=== PATIENT | female | born 1930 | race Caucasian/White ===

== ENCOUNTER 2016-10-09 12:55 | Outpatient (RCR) | payer MEDICAID, MEDICARE, OTHER ==
[2016-09-27] MEDS: diphenhydrAMINE 50 MG/ML INJ (BENADRYL) IV SCH (13:43)
[2016-09-27] MEDS: ACETAMINOPHEN 325 MG TABLET/CAPLET (TYLENOL) PO SCH (13:43)
[2016-09-27 14:58] VITALS: BP 146/74
[2016-09-29] MEDS: ACETAMINOPHEN 325 MG TABLET/CAPLET (TYLENOL) PO SCH (13:07)
[2016-09-29] MEDS: diphenhydrAMINE 50 MG/ML INJ (BENADRYL) IV SCH (13:08)
[2016-09-29] MEDS: IRON SUCROSE 250 MG/NS 100 ML IVPB IV SCH ×2 (13:22)
[2016-09-29 14:15] VITALS: BP 124/66
[2016-10-02] MEDS: diphenhydrAMINE 50 MG/ML INJ (BENADRYL) IV SCH (13:02)
[2016-10-02] MEDS: ACETAMINOPHEN 325 MG TABLET/CAPLET (TYLENOL) PO SCH (13:03)
[2016-10-02] MEDS: IRON SUCROSE 250 MG/NS 100 ML IVPB IV SCH ×2 (13:11)
[2016-10-02 13:16] VITALS: BP 144/82
[2016-10-04] MEDS: ACETAMINOPHEN 325 MG TABLET/CAPLET (TYLENOL) PO SCH (13:10)
[2016-10-04] MEDS: diphenhydrAMINE 50 MG/ML INJ (BENADRYL) IV SCH (13:12)
[2016-10-04] MEDS: IRON SUCROSE 250 MG/NS 100 ML IVPB IV SCH ×2 (13:15)
[2016-10-04 14:08] VITALS: BP 137/73
[2016-10-06] MEDS: ACETAMINOPHEN 325 MG TABLET/CAPLET (TYLENOL) PO SCH (13:01)
[2016-10-06] MEDS: diphenhydrAMINE 50 MG/ML INJ (BENADRYL) IV SCH (13:01)
[2016-10-06] MEDS: IRON SUCROSE 250 MG/NS 100 ML IVPB IV SCH ×2 (13:38)
[2016-10-06 14:10] VITALS: BP 139/70
[~2016-10-09] VITALS: Ht 152.4 cm; Wt 38.1 kg
[~2016-10-09 12:55] MED LIST: ACET-93 PO; ACET325T38 PO; ACETAMINOPHEN 325 MG TABLET/CAPLET (TYLENOL) ONE; ALBU2.5V4 IH; AMLO5TAB2 PO; ASCO500C15 PO; ASPI-586 PO; CALC600T12 PO; CAPT50TA3 PO; CLOP75TA28 PO; DIAZ2TAB2 PO; FLUT1DIS27 IH; IRON SUCROSE INJECTION 125 MG in NS (IVPB) 100 ML IV ONE; LORA10TA7 PO; MECL-106 PO; MEGE400O PO; MEGE400O21 PO; MULT-1038 PO; OXYGEN; PENT400T2 PO; PRAV10TA PO; TIOT18CA2 IH; diphenhydrAMINE 50 MG/ML INJ (BENADRYL) ONE
[2016-10-09] MEDS: diphenhydrAMINE 50 MG/ML INJ (BENADRYL) IV SCH (13:10)
[2016-10-09] MEDS: ACETAMINOPHEN 325 MG TABLET/CAPLET (TYLENOL) PO SCH (13:10)
[2016-10-09 13:17] VITALS: BP_SYST 139; BP_SYST 149; BP_DIAS 70; BP_DIAS 95
[2016-10-09] MEDS: IRON SUCROSE 250 MG/NS 100 ML IVPB IV SCH ×2 (13:30)
== END 2016-11-25 | disposition home or self-care (01) ==
LOC: SDC 12:55
PROVIDERS: ATTEND Family Medicine
DX: D50.9 Iron deficiency anemia, unspecified (principal)
CPT/HCPCS: 96365; 96375

== ENCOUNTER 2017-03-23 17:35 | Emergency (ER) | payer MEDICARE, OTHER ==
[~2017-03-23] VITALS: Ht 152.4 cm; Wt 46.3 kg
[~2017-03-23 17:35] MED LIST changes: -ACETAMINOPHEN 325 MG TABLET/CAPLET (TYLENOL) ONE; -IRON SUCROSE INJECTION 125 MG in NS (IVPB) 100 ML IV ONE; -diphenhydrAMINE 50 MG/ML INJ (BENADRYL) ONE
[2017-03-23 19:30] LABS: BASOPHILS # (AUTO) 0.1 10^3/uL (0.0-0.1); BASOPHILS % (AUTO) 1 % (0-10); EOSINOPHILS # (AUTO) 0.5 10^3/uL (0.0-0.3); EOSINOPHILS % (AUTO) 5 % (0-10); HEMATOCRIT 36 % (35-52); HEMOGLOBIN 12.4 G/DL (11.5-16.0); LYMPHOCYTES # (AUTO) 1.3 X 10^3 (1.0-4.0); LYMPHOCYTES % (AUTO) 13 % (12-44); MEAN CORPUSCULAR HEMOGLOBIN 33 PG (25-34); MEAN CORPUSCULAR HGB CONC 35 G/DL (32-36); MEAN CORPUSCULAR VOLUME 95 FL (80-99); MEAN PLATELET VOLUME 9.5 FL (7.4-10.4); MONOCYTES # (AUTO) 1.3 X 10^3 (0.0-1.0); MONOCYTES % (AUTO) 13 % (0-12); NEUTROPHILS # (AUTO) 6.9 X 10^3 (1.8-7.8); NEUTROPHILS % (AUTO) 69 % (42-75); PLATELET COUNT 363 10^3/uL (130-400); RED BLOOD COUNT 3.77 10^6/uL (4.35-5.85); RED CELL DISTRIBUTION WIDTH 12.6 % (10.0-14.5)
--- NOTE | 2017-03-23 19:43 | Diagnostic Imaging Report ---
INDICATION: Shortness of breath. EXAMINATION: Portable chest at 7:28 p.m. FINDINGS: There is some atelectasis in the right upper lobe. Heart size and pulmonary vascularity are normal. Lungs are clear. There are no effusions or pneumothoraces. IMPRESSION: Focal area of atelectasis in the right upper lobe. No acute abnormality is seen. Dictated by: Dictated on workstation # [id number]
--- NOTE | 2017-03-23 19:45 | ED Cough/URI ---
General Chief Complaint: Respiratory Problems Stated Complaint: PRODUCTIVE COUGH/PAINFUL BREATHING/SOB Nursing Triage Note: PT CO OF SOA AND LUNG PAIN 5/10, HAS PROD COUGH WITH THICK YELLOW GREEN SPUTUM. 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 She resides at [facility]. She reports that she has had a cough and sputum production for at least a month. It got worse today and she called her daughters who brought her here late this afternoon. She reports that she has been coughing up a goodly amount of green ugly sputum. There is some chest pain particularly with coughing or deep breath. She has nebulizer treatment available to her on a when necessary basis if she can [place] nursing care. Timing/Duration: week, getting worse Severity/Quality: productive cough, sputum Modifying Factors: Improves With Albuterol Nebulizer Associated Symptoms: chest pain/soreness Allergies and Home Medications Allergies Coded Allergies: Penicillins (Unverified Allergy, Unknown, 10/22/15) Home Medications Acetaminophen 500 Mg Tablet, 500-1,000 MG PO TID PRN for PAIN, (Reported) TAKES 1-2 (500 MG) TABLETS Albuterol Sulfate 2.5 Mg/3 Ml Vial.neb, 2.5 MG IH Q4H PRN for SHORTNESS OF BREATH, (Reported) Amlodipine Besylate 5 Mg Tablet, 5 MG PO BID, (Reported) Ascorbic Acid 500 Mg Capsule.er, 500 MG PO DAILY, (Reported) Aspirin 81 Mg Tablet.dr, 81 MG PO DAILY, (Reported) Calcium Carbonate 600 Mg Tablet, 600 MG PO DAILY, (Reported) Captopril 50 Mg Tablet, 50 MG PO BID, (Reported) Clopidogrel Bisulfate 75 Mg Tablet, 75 MG PO DAILY, (Reported) Diazepam 2 Mg Tablet, 1 MG PO BID, (Reported) TAKES 1/2 OF A (2 MG) TABLET Fluticasone/Salmeterol 1 Each Blst.w.dev, 1 PUFF IH BID, (Reported) Loratadine 10 Mg Tablet, 10 MG PO DAILY, (Reported) Meclizine HCl 25 Mg Tablet, 50 MG PO TID PRN for DIZZINESS, (Reported) Megestrol Acetate 400 Mg/10 Ml Oral.susp, 40 MG PO DAILY, (Reported) Multivit/Iron/FA/K/Herb No.244 1 Each Tablet, 2 TAB PO DAILY, (Reported) Pentoxifylline 400 Mg Tablet.er, 400 MG PO TID, (Reported) Tiotropium Nabb 1 Inh Aerp, 1 INH IH DAILY, (Reported) Constitutional: see HPI EENTM: no symptoms reported Respiratory: cough, dyspnea on exertion, phlegm Cardiovascular: no symptoms reported Gastrointestinal: no symptoms reported Genitourinary: no symptoms reported Musculoskeletal: no symptoms reported Skin: no symptoms reported Hematologic/Lymphatic: No Symptoms Reported Immunological/Allergic: no symptoms reported Past Tyjbgyl-Phdasn-Kogpbj Hx Patient Social History Alcohol Use: Denies Use Recreational Drug Use: No Smoking Status: Former Smoker Type Used: Cigarettes Former Smoker, Quit: Feb 26, 2011 Recent Foreign Travel: No Contact w/Someone Who Travel: No Recent Infectious Disease Expo: No Recent Hopitalizations: No (UNKNOWN) Immunizations Up To Date Tetanus Booster (TDap): Unknown Date of Pneumonia Vaccine: Dec 27, 2014 Seasonal Allergies Seasonal Allergies: Yes Surgeries History of Surgeries: No Surgeries: Vasectomy Respiratory History of Respiratory Disorde: Yes Respiratory Disorders: Pneumonia, Chronic Bronchitis, COPD, Emphysema Currently Using CPAP: No Currently Using BIPAP: No Cardiovascular History of Cardiac Disorders: Yes Cardiac Disorders: Peripheral Vascular Neurological History of Neurological Disord: Yes Reproductive System Hx Reproductive Disorders: No Genitourinary Genitourinary Disorders: Renal Failure, UTI-Chronic Gastrointestinal History of Gastrointestinal Di: Yes (DECREASED APPETITE) Musculoskeletal History of Musculoskeletal Dis: No Endocrine History of Endocrine Disorders: Yes (THYROID NODULE) HEENT Loss of Vision: Denies Hearing Impairment: Denies Cancer History of Cancer: No Psychosocial History of Psychiatric Problem: Yes Behavioral Health Disorders: Depression Integumentary History of Skin or Integumenta: No Blood Transfusions History of Blood Disorders: Yes (IRON DEFICIENCY ANEMIA) Family Medical History Family Medial History: ABDOMINAL CANCER G8 BROTHER FH: emphysema 19 MOTHER Peripheral arterial disease G8 SISTER Thyroid disease G8 SISTER Physical Exam Vital Signs Vital Sign - Last 12Hours 03/23/17 18:30 Temp 96.9 Pulse 100 Resp 22 B/P (MAP) 136/72 (93) Pulse Ox 95 O2 Delivery Nasal Cannula Capillary Refill : Less Than 3 Seconds General Appearance: moderate distress Eyes: Bilateral Eye Normal Inspection HEENT: normal ENT inspection Neck: full range of motion Respiratory: rhonchi (scattered throughout both lung [place]) Cardiovascular: normal peripheral pulses, regular rate, rhythm, no edema, no gallop, no JVD, no murmur Gastrointestinal: normal bowel sounds, non tender, soft, no organomegaly, no pulsatile mass Extremities: normal range of motion, non-tender, normal inspection, no pedal edema, no calf tenderness, normal capillary refill, pelvis stable 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/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, no motor/sensory deficits, alert, normal mood/affect, oriented x 3 Skin: normal color, warm/dry, cyanosis, cool, diaphoresis, damp Lymphatic: no adenopathy Progress/Results/Core Measures Suspected Sepsis Recent Fever Within 48 Hours: No Infection Criteria Present: None New/Unexplained Altered Menta: No Sepsis Screen: No Definite Risk Sepsis Diagnosis: SIRS Temperature:96.9 Pulse: 100 Respiratory Rate: 22 Laboratory Tests 03/23/17 19:24: White Blood Count 10.0 Blood Pressure 136 /72 Mean: 93 Laboratory Tests 03/23/17 19:24: Creatinine 0.88, Platelet Count 363, Total Bilirubin 0.3 Results/Orders Lab Results Laboratory Tests Test 03/23/17 19:24 03/23/17 19:57 Range/Units White Blood Count 10.0 4.3-11.0 10^3/uL Red Blood Count 3.77 L 4.35-5.85 10^6/uL Hemoglobin 12.4 11.5-16.0 G/DL Hematocrit 36 35-52 % Mean Corpuscular Volume 95 80-99 FL Mean Corpuscular Hemoglobin 33 25-34 PG Mean Corpuscular Hemoglobin Concent 35 32-36 G/DL Red Cell Distribution Width 12.6 10.0-14.5 % Platelet Count 363 130-400 10^3/uL Mean Platelet Volume 9.5 7.4-10.4 FL Neutrophils (%) (Auto) 69 42-75 % Lymphocytes (%) (Auto) 13 12-44 % Monocytes (%) (Auto) 13 H 0-12 % Eosinophils (%) (Auto) 5 0-10 % Basophils (%) (Auto) 1 0-10 % Neutrophils # (Auto) 6.9 1.8-7.8 X 10^3 Lymphocytes # (Auto) 1.3 1.0-4.0 X 10^3 Monocytes # (Auto) 1.3 H 0.0-1.0 X 10^3 Eosinophils # (Auto) 0.5 H 0.0-0.3 10^3/uL Basophils # (Auto) 0.1 0.0-0.1 10^3/uL Sodium Level 140 135-145 MMOL/L Potassium Level 3.2 L 3.6-5.0 MMOL/L Chloride Level 98 98-107 MMOL/L Carbon Dioxide Level 29 21-32 MMOL/L Anion Gap 13 5-14 MMOL/L Blood Urea Nitrogen 8 7-18 MG/DL Creatinine 0.88 0.60-1.30 MG/DL Estimat Glomerular Filtration Rate > 60 BUN/Creatinine Ratio 9 Glucose Level 126 H 70-105 MG/DL Calcium Level 9.5 8.5-10.1 MG/DL Total Bilirubin 0.3 0.1-1.0 MG/DL Aspartate Amino Transf (AST/SGOT) 17 5-34 U/L Alanine Aminotransferase (ALT/SGPT) 16 0-55 U/L Alkaline Phosphatase 72 40-136 U/L Total Protein 7.4 6.4-8.2 GM/DL Albumin 4.0 3.2-4.5 GM/DL Urine Color YELLOW Urine Clarity SLIGHTLY CLOUDY Urine pH 6 5-9 Urine Specific [place] 1.010 L 1.016-1.022 Urine Protein 1+ H NEGATIVE Urine Glucose (UA) NEGATIVE NEGATIVE Urine Ketones NEGATIVE NEGATIVE Urine Nitrite NEGATIVE NEGATIVE Urine Bilirubin NEGATIVE NEGATIVE Urine Urobilinogen NORMAL NORMAL MG/DL Urine Leukocyte Esterase 3+ H NEGATIVE Urine RBC (Auto) 3+ H NEGATIVE Urine RBC 2-5 H /HPF Urine WBC TNTC H /HPF Urine Crystals NONE /LPF Urine Bacteria LARGE H /HPF Urine Casts NONE /LPF Urine Mucus NEGATIVE /LPF Urine Culture Indicated YES My Orders Orders - YOUSUF KATZ MD Chest 1 View, Ap/Pa Only (03/23/17 19:12) Cbc With Automated Diff (03/23/17 19:12) Comprehensive Metabolic Panel (03/23/17 19:12) Ua Culture If Indicated (03/23/17 19:12) Urine Culture (03/23/17 19:57) Vital Signs/I&O Vital Sign - Last 12Hours 03/23/17 18:30 Temp 96.9 Pulse 100 Resp 22 B/P (MAP) 136/72 (93) Pulse Ox 95 O2 Delivery Nasal Cannula Capillary Refill : Less Than 3 Seconds Blood Pressure Mean: 93 Departure Communication (Admissions) Progress Notes Chest x-ray was clear. White blood count was normal. UA showed WBCs too numerous to count. Impression Impression: Primary Impression: urinary tract infection Disposition: HOME, SELF-CARE Condition: Stable/Unchanged Departure-Patient Inst. Decision time for Depature: 20:32 Referrals: GUNNER GONZALEZ MD (PCP/Family) Primary Care Physician Add. Discharge Instructions: All discharge instructions reviewed with patient and/or family. Voiced understanding. Begin Omnicef 2000 hours 03/24 Scripts Cefdinir (Cefdinir) 300 Mg Capsule 300 MG PO twice a day, #14 CAP Prov: YOUSUF KATZ MD 03/23/17 YOUSUF KATZ MD Mar 23, 2017 19:45
[2017-03-23 19:49] LABS: ALANINE AMINOTRANSFERASE 16 U/L (0-55); ALKALINE PHOSPHATASE 72 U/L (40-136); BILIRUBIN,TOTAL 0.3 MG/DL (0.1-1.0); BUN/CREATININE RATIO 9; CALCIUM 9.5 MG/DL (8.5-10.1); CARBON DIOXIDE 29 MMOL/L (21-32); CHLORIDE 98 MMOL/L (98-107); CREATININE SERUM 0.88 MG/DL (0.60-1.30); GFR ESTIMATED > 60; GLUCOSE 126 MG/DL (70-105); POTASSIUM 3.2 MMOL/L (3.6-5.0); SODIUM 140 MMOL/L (135-145); TOTAL PROTEIN 7.4 GM/DL (6.4-8.2)
[2017-03-23 20:06] LABS: BILIRUBIN,URINE NEGATIVE (NEGATIVE); CLARITY,URINE SLIGHTLY CLOUDY; COLOR,URINE YELLOW; GLUCOSE, URINE (UA) NEGATIVE (NEGATIVE); KETONES,URINE NEGATIVE (NEGATIVE); LEUKOCYTE ESTERASE ,URINE 3+ (NEGATIVE); NITRITE,URINE NEGATIVE (NEGATIVE); PH,URINE 6 (5-9); PROTEIN,URINE 1+ (NEGATIVE); UROBILINOGEN,URINE NORMAL (NORMAL)
[2017-03-23 20:20] LABS: BACTERIA,URINE LARGE /HPF; WBC,URINE TNTC /HPF
[2017-03-23] MEDS ORDERED: CEFD300C3 PO (20:34)
[2017-03-23] MEDS ORDERED: cefTRIAXone INJECTION 1,000 MG in D5W 50 ML IVPB SOLUTION 50 ML IV ONE (20:45)
[2017-03-23 21:13] VITALS: BP 136/72
== END 2017-03-23 21:14 | disposition home or self-care (01) ==
LOC: EDUNIT# 17:35 → ER 17:36
DX: N39.0 Urinary tract infection, site not specified (principal); F32.9 Major depressive disorder, single episode, unspecified; J43.9 Emphysema, unspecified; Z87.01 Personal history of pneumonia (recurrent); Z87.891 Personal history of nicotine dependence; Z79.82 Long term (current) use of aspirin
CPT/HCPCS: 36415; 71045; 80053; 81000; 85025; 87077; 87088; 99282

== ENCOUNTER → 2017-11-08 | Outpatient (CLI) | payer MEDICARE, MEDICAID ==
[~2017-11-08] MED LIST changes: -AMLO5TAB2 PO; +AMLO5TAB7 PO; +CEFD300C3 PO; -PENT400T2 PO; +PENT400T9 PO
--- NOTE | 2017-11-08 16:19 | Diagnostic Imaging Report ---
INDICATION: Redness and swelling in the first and second digits of the right hand. TIME OF EXAM: 1:11 p.m. Three views of the right hand were obtained. FINDINGS: There is generalized demineralization of the hand and carpus. The distal radius and ulna appear intact. 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 There are degenerative changes at the triscaphe and first CMC joints. MCP joints are intact. The proximal interphalangeal joints are intact. There are significant degenerative changes involving the distal interphalangeal joints of the second and third fingers. No definite osseous erosive changes. This may be owing to osteoarthritis. There is also moderate DIP joint degenerative change of the fourth and fifth digits. No fractures are identified. The soft tissues are unremarkable. IMPRESSION: Chronic changes, as described. No acute feature is detected. Dictated by: Dictated on workstation # [id number]
== END ==
LOC: RAD 12:26
PROVIDERS: ATTEND Family Medicine
DX: L53.9 Erythematous condition, unspecified (principal); M79.89 Other specified soft tissue disorders
CPT/HCPCS: 73130

== ENCOUNTER 2018-02-23 17:31 | Inpatient (IN) | payer MEDICARE, MEDICAID ==
[~2018-02-23] VITALS: Ht 152.4 cm; Wt 45.4 kg
--- OUTSIDE RECORDS SUMMARY | 2018-02-23 17:37 | XMS REPORT | CCD ---
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 Name Role Phone PP Unavailable CCM Unavailable Summary Purpose Interface Exchange Insurance Providers Payer name Policy type / Coverage type Covered alliance party ID Effective Begin Date Effective End Date [employer] CLAIMS Commercial Insurance [id number] Unknown [facility] Commercial Insurance [id number] Unknown Family history Daughter Diagnosis Age At Onset Hypertension Unknown Thyroid Unknown Sister Diagnosis Age At Onset Thyroid Unknown Factor V Unknown Arthritis Unknown Peripheral vascular disease Unknown Runs in the family Diagnosis Age At Onset Factor V Unknown Brother Diagnosis Age At Onset Cancer Unknown Social History Social History Element Codes Description Effective Dates Living arrangements Unknown Intermediate VCV 08/07/2016 Marital status Unknown 02/17/2016 Number of children Unknown 7 02/17/2016 Employment Unknown Retired 02/17/[address]: 2972981 Former smoker 02/17/[address]: 762684789 Never drinks alcohol 02/17/2016 Has the patient ever used illegal drugs? Unknown Has never used illegal drugs 02/17/2016 Allergies, Adverse Reactions, Alerts Substance Reaction Codes Entered Date Inactivated Date Status Penicillin Unknown 02/17/2016 No Inactive Date Active Past Medical History Illness Codes Condition Status Onset Date Resolved Date Pain in joints of right hand ICD-9: 719.44 ICD-10: M25.541 Active 11/08/2017 Unknown Pain in right hand ICD -9: 729.5 ICD-10: M79.641 Active 11/08/2017 Unknown Essential (primary) hypertension ICD-9: 401.1 ICD-10: I10 Active 02/17/2016 Unknown Other emphysema ICD-9 : 492.8 ICD-10: J43.8 Active 04/12/2017 Unknown Slow transit constipation ICD-9: 564.01 ICD-10: K59.01 Active 07/26/2017 Unknown Cervicalgia ICD-9: 723.1 ICD-10: M54.2 Active 04/12/2017 Unknown Pain in thoracic spine ICD-9: 724.1 ICD-10: M54.6 Active 04/12/2017 Unknown Dependence on supplemental oxygen ICD-9: V46.2 ICD-10: Z99.81 Active 01/09/2017 Unknown Muscle weakness (generalized) ICD-9: 728.87 ICD-10: M62.81 Active 02/17/2016 Unknown Dysuria ICD-9: 788.1 ICD-10: R30.0 Active 12/11/2016 Unknown Other insomnia ICD-9: 327.09 ICD-10: G47.09 Active 12/11/2016 Unknown Underweight ICD-9: 783.22 ICD-10: R63.6 Active 12/11/2016 Unknown Urinary tract infection, site not specified ICD-9: 599.0 ICD-10: N39.0 Active 12/11/2016 Unknown Other allergic rhinitis ICD-9: 477.8 ICD-10: J30.89 Active 11/29/2016 Unknown Anemia in other chronic diseases classified elsewhere ICD-9: 285.29 ICD-10: D63.8 Active 09/21/2016 Unknown Anemia, unspecified ICD-9: 285.9 ICD-10: D64.9 Active 09/21/2016 Unknown Chronic obstructive pulmonary disease with (acute) exacerbation ICD-9: 491.21 ICD-10: J44.1 Active 05/24/2016 Unknown Abnormal weight loss ICD-9: 783.21 ICD-10: R63.4 Active 06/27/2016 Unknown Candidal stomatitis ICD-9: 112.0 ICD-10: B37.0 Active 06/13/2016 Unknown Chronic obstructive pulmonary disease with acute lower respiratory infection ICD-9: 491.22 ICD-10: J44.0 Active 04/26/2016 Unknown Diarrhea, unspecified ICD-9: 787.91 ICD-10: R19.7 Active 06/13/2016 Unknown Residual hemorrhoidal skin tags ICD-9: 455.9 ICD-10: K64.4 Active 06/13/2016 Unknown Otalgia, bilateral ICD -9: 388.70 ICD-10: H92.03 Active 02/17/2016 Unknown Otalgia, left ear ICD- 9: 388.70 ICD-10: H92.02 Active 02/17/2016 Unknown Problems Condition Codes Effective Dates Condition Status Pain in joints of right hand ICD-9: 719.44 ICD-10: M25.541 11/08/2017 Active Pain in right hand ICD -9: 729.5 ICD-10: M79.641 11/08/2017 Active Essential (primary) hypertension ICD-9: 401.1 ICD-10: I10 02/17/2016 Active Other emphysema ICD-9 : 492.8 ICD-10: J43.8 04/12/2017 Active Slow transit constipation ICD-9: 564.01 ICD-10: K59.01 07/26/2017 Active Cervicalgia ICD-9: 723.1 ICD-10: M54.2 04/12/2017 Active Pain in thoracic spine ICD-9: 724.1 ICD-10: M54.6 04/12/2017 Active Dependence on supplemental oxygen ICD-9: V46.2 ICD-10: Z99.81 01/09/2017 Active Muscle weakness (generalized) ICD-9: 728.87 ICD-10: M62.81 02/17/2016 Active Dysuria ICD-9: 788.1 ICD-10: R30.0 12/11/2016 Active Other insomnia ICD-9: 327.09 ICD-10: G47.09 12/11/2016 Active Underweight ICD-9: 783.22 ICD-10: R63.6 12/11/2016 Active Urinary tract infection, site not specified ICD-9: 599.0 ICD-10: N39.0 12/11/2016 Active Other allergic rhinitis ICD-9: 477.8 ICD-10: J30.89 11/29/2016 Active Anemia in other chronic diseases classified elsewhere ICD-9: 285.29 ICD-10: D63.8 09/21/2016 Active Anemia, unspecified ICD-9: 285.9 ICD-10: D64.9 09/21/2016 Active Chronic obstructive pulmonary disease with (acute) exacerbation ICD-9: 491.21 ICD-10: J44.1 05/24/2016 Active Abnormal weight loss ICD-9: 783.21 ICD-10: R63.4 06/27/2016 Active Candidal stomatitis ICD-9: 112.0 ICD-10: B37.0 06/13/2016 Active Chronic obstructive pulmonary disease with acute lower respiratory infection ICD-9: 491.22 ICD-10: J44.0 04/26/2016 Active Diarrhea, unspecified ICD-9: 787.91 ICD-10: R19.7 06/13/2016 Active Residual hemorrhoidal skin tags ICD-9: 455.9 ICD-10: K64.4 06/13/2016 Active Otalgia, bilateral ICD -9: 388.70 ICD-10: H92.03 02/17/2016 Active Otalgia, left ear ICD- 9: 388.70 ICD-10: H92.02 02/17/2016 Active Medications Medication Codes Instructions Start Date Stop Date Status Fill Instructions trolamine salicylate 10 % topical cream RxNorm: 359455 APPLY THIN LAYER AT BEDTIME BEHIND EAR AND TO NECK TOP 01/16/2018 No Stop Date Active albuterol sulfate 2.5 mg/3 mL (0.083 %) solution for nebulization RxNorm: 062864 1 treatment INH Q4H as needed dyspnea 12/25/2017 No Stop Date Active Keflex 500 mg capsule RxNorm: 677270 1 Capsule(s) PO TID 201711/29/2017 Inactive aspirin 325 mg tablet RxNorm: 338025 1 Tablet(s) PO daily 201711/24/2017 Inactive cetirizine 10 mg tablet RxNorm: 6203983 1 Tablet(s) PO daily 12/14/2017 Inactive stop claritin cetirizine 10 mg tablet RxNorm: 0343816 1 Tablet(s) PO daily 08/16/2017 Inactive stop claritin Linzess 72 mcg capsule RxNorm: 2299560 1 Capsule(s) PO daily 02/20/2018 Active Flonase Allergy Relief 50 mcg/actuation nasal spray, suspension RxNorm: 5633088 1 [place] NASAL BID as needed 07/03/2017 07/02/2017 Inactive Flonase Allergy Relief 50 mcg/actuation nasal spray, suspension RxNorm: 5581299 1 [place] NASAL BID as needed 07/03/2017 09/30/2017 Inactive ProAir HFA 90 mcg/actuation aerosol inhaler RxNorm: 608439 2 Puff(s) INH QID as needed dyspnea 05/02/2017 No Stop Date Active DX: J44.9 Zithromax Z-Vic 250 mg tablet RxNorm: 126958 1 Tablet(s) PO UD 03/02/2017 05/21/2017 Inactive z pack as directed Keflex 500 mg capsule RxNorm: 691799 1 Capsule(s) PO TID 201612/20/2016 Inactive pentoxifylline ER 400 mg tablet,extended release RxNorm: 479576 1 Tablet(s) PO TID 11/27/2016 03/26/2017 Inactive melatonin 3 mg tablet RxNorm: 535174 1 Tablet(s) PO QHS as needed 09/21/2016 No Stop Date Active Calmoseptine 0.44 %-20.6 % topical ointment RxNorm: 139126 1 Application TOP BID 06/27/2016 No Stop Date Active and prn nystatin 100,000 unit/mL oral suspension RxNorm: 209743 5 Milliliter(s) PO QID 06/27/2016 07/06/2016 Inactive cefdinir 300 mg capsule RxNorm: 184983 1 Capsule(s) PO BID 06/201606/09/2016 Inactive Zithromax Z-Vic 250 mg tablet RxNorm: 112968 1 Tablet(s) PO UD 05/31/2016 07/06/2016 Inactive z pack as directed doxycycline hyclate 100 mg capsule RxNorm: 0479500 1 Capsule(s) PO BID 04/26/2016 05/05/2016 Inactive Kenalog 40 mg/mL suspension for injection RxNorm: 2414244 Milliliter(s) Inj 04/26/2016 04/26/2016 Inactive Ativan 1 mg tablet RxNorm: 952810 1 Tablet(s) SL Q4H as needed anxiety /air hunger 04/11/2016 No Stop Date Active Zithromax Z-Vci 250 mg tablet RxNorm: 042585 1 Tablet(s) PO UD 03/03/2016 04/10/2016 Inactive z pack as directed, please deliver to [facility] doxycycline hyclate 100 mg tablet RxNorm: 724813 1 Tablet(s) PO BID 02/25/2016 02/24/2016 Inactive doxycycline hyclate 100 mg tablet RxNorm: 371003 1 Tablet(s) PO BID 02/25/2016 03/02/2016 Inactive Please deliver to [facility] meclizine 25 mg tablet RxNorm: 383027 2 Tablet(s) PO TID as needed Dizziness No Start Date Active hyoscyamine 0.125 mg sublingual tablet RxNorm: 9644215 1 Tablet(s) SL Q2H as needed secretions No Start Date Active Alive Women's Energy 18 mg-400 mcg-80 mcg tablet RxNorm: 2 Tablet(s) PO daily No Start Date Active calcium carbonate 600 mg (1,500 mg) tablet RxNorm: 364069 1 Tablet(s) PO daily No Start Date Active hydrocodone 5 mg-acetaminophen 325 mg tablet RxNorm: 649673 1/2-1 Tablet(s) PO Q6 as needed for pain No Start Date Active Lasix 20 mg tablet RxNorm: 393449 1 Tablet(s) PO daily as needed No Start Date Active Roxanol oral RxNorm: 94609 oral No Start Date Active amlodipine 5 mg tablet RxNorm: 337780 1 Tablet(s) PO BID No Start Date Active Spiriva with HandiHaler 18 mcg and inhalation capsules RxNorm: 434396 1 Capsule(s ) INH daily No Start Date Active Ensure Plus oral RxNorm: oral No Start Date Active aspirin 81 mg tablet,delayed release RxNorm: 138949 1 Tablet(s) PO daily No Start Date Active Vitamin C 500 mg tablet RxNorm: 672778 1 Tablet(s) PO daily No Start Date Active Spiriva with HandiHaler 18 mcg and inhalation capsules RxNorm: 969561 1 Capsule(s ) INH daily No Start Date Active acetaminophen 500 mg tablet RxNorm: 721024 1-2 Tablet(s) PO TID as needed for pain No Start Date Active Pepcid 20 mg tablet RxNorm: 738196 1 Tablet(s) PO BID No Start Date Active Plavix 75 mg tablet RxNorm: 676826 1 Tablet(s) PO daily No Start Date Active Periactin 4 mg tablet RxNorm: 147762 1/2 Tablet(s) PO daily No Start Date Active melatonin 3 mg tablet RxNorm: 032821 1 Tablet(s) PO QHS as needed No Start Date 09/20/2016 Inactive albuterol sulfate 2.5 mg/3 mL (0.083 %) solution for nebulization RxNorm: 430139 1 treatment INH Q4H as needed dyspnea No Start Date 12/24/2017 Inactive Advair Diskus 500 mcg-50 mcg/dose powder for inhalation RxNorm: 6256940 1 Puff(s) INH BID No Start Date 08/06/2016 Inactive ProAir HFA 90 mcg/actuation aerosol inhaler RxNorm: 862565 2 Puff(s) INH QID as needed dyspnea No Start Date 05/01/2017 Inactive DX: J44.9 trolamine salicylate 10 % topical cream RxNorm: 657580 APPLY THIN LAYER TO BEDTIME BEHIND EAR AND TO NECK TOP No Start Date 01/15/2018 Inactive Breo Ellipta 200 mcg-25 mcg/dose powder for inhalation RxNorm: 2474557 1 Puff(s) INH daily No Start Date 08/22/2016 Inactive Zithromax Z-Vic 250 mg tablet RxNorm: 933693 1 Tablet(s) PO UD No Start Date 03/02/2016 Inactive z pack as directed Trental 400 mg tablet,extended release RxNorm: 587812 1 Tablet(s) PO TID No Start Date 11/26/2016 Inactive Valium 2 mg tablet RxNorm: 868232 1/2 Tablet(s) PO BID No Start Date 08/06/2016 Inactive Claritin 10 mg tablet RxNorm: 291909 1 Tablet(s) PO daily No Start Date 08/16/2017 Inactive Ativan 1 mg tablet RxNorm: 748827 1 Tablet(s) SL Q4H as needed anxiety /air hunger No Start Date 04/10/2016 Inactive Medication Administered Medication Codes Instructions Start Date Status Kenalog 40 mg/mL suspension for injection RxNorm: 0637236 Milliliter 04/26/2016 No longer Active Immunizations Vaccine Codes Date Status Influenza CVX: 141 11/26/2014 completed Pneumococcal (Adult) CVX: 33 11/26/2014 completed Assessments Condition Codes Effective Dates Pain in right hand ICD-10: M79.641 ICD-9: 729.5 11/20/2017 Pain in joints of right hand ICD-10: M25.541 ICD-9: 719.44 11/20/2017 Essential (primary) hypertension ICD-10: I10 ICD-9: 401.1 07/26/2017 Slow transit constipation ICD-10: K59.01 ICD-9: 564.01 07/26/2017 Other emphysema ICD-10: J43.8 ICD-9: 492.8 07/26/2017 Pain in thoracic spine ICD-10: M54.6 ICD-9: 724.1 04/12/2017 Cervicalgia ICD-10: M54.2 ICD-9: 723.1 04/12/2017 Dependence on supplemental oxygen ICD-10: Z99.81 ICD-9: V46.2 01/09/2017 Muscle weakness (generalized) ICD-10: M62.81 ICD-9: 728.87 01/09/2017 Urinary tract infection, site not specified ICD-10: N39.0 ICD-9: 599.0 12/11/2016 Other insomnia ICD-10: G47.09 ICD-9: 327.09 12/11/2016 Underweight ICD-10: R63.6 ICD-9: 783.22 12/11/2016 Dysuria ICD-10: R30.0 ICD-9: 788.1 12/11/2016 Other allergic rhinitis ICD-10: J30.89 ICD-9: 477.8 11/29/2016 Anemia, unspecified ICD-10: D64.9 ICD-9: 285.9 09/21/2016 Chronic obstructive pulmonary disease with (acute) exacerbation ICD-10: J44.1 ICD-9: 491.21 09/21/2016 Anemia in other chronic diseases classified elsewhere ICD-10 : D63.8 ICD-9: 285.29 09/21/2016 Abnormal weight loss ICD-10: R63.4 ICD-9: 783.21 08/23/2016 Candidal stomatitis ICD-10: B37.0 ICD-9: 112.0 08/23/2016 Chronic obstructive pulmonary disease with acute lower respiratory infection ICD-10: J44.0 ICD-9: 491.22 08/07/2016 Residual hemorrhoidal skin tags ICD-10: K64.4 ICD-9: 455.9 06/13/2016 Diarrhea, unspecified ICD-10: R19.7 ICD-9: 787.91 06/13/2016 Otalgia, bilateral ICD-10: H92.03 ICD-9: 388.70 02/17/2016 Reason For Visit Reason For Visit Effective Dates Notes finger and hand pain 11/20/2017 hypertension 11/08/2017 hypertension 07/26/2017 hypertension 04/12/2017 hypertension 01/09/2017 hypertension 12/11/2016 earache 11/29/2016 hypertension 09/21/2016 hypertension 08/23/2016 hypertension 08/07/2016 hemorrhoids 06/27/2016 resolved hemorrhoids 06/13/2016 hypertension 05/24/2016 cough 04/26/2016 hypertension 02/17/2016 Results Observation Observation Code Item Item Code Result Date Culture Urine [id number] URINE CULTURE SEE NOTES 12/14/2016 Culture Urine [id number] Continued Results 12/14/2016 Urine Culture Ucult Complete >100,000 col/ml aerobic growth sent to ref lab 12/12/2016 FERRITIN [id number] FERRITIN TNP:Improper Specimen 09/21/2016 IRON/TIBC [id number] Iron 15 ug/dL 09/21/2016 IRON/TIBC [id number] TIBC 319 ug/dL 09/21/2016 IRON/TIBC 4394622 % SATURATION 5 % 09/21/2016 IRON/TIBC [id number] UIBC 304 ug/dL 09/21/2016 Review of Systems System Result Effective Dates Constitutional No chills 11/20/2017 Constitutional No fatigue 11/20/2017 Constitutional No fever 11/20/2017 Eyes No vision change 11/20/2017 Musculoskeletal joint complaint 2017 Constitutional No malaise 11/20/2017 Ears/Nose/Throat/Neck No nasal discharge 11/20/2017 Cardiovascular No chest pain/pressure Cardiovascular No dyspnea 11/20/2017 Respiratory No cough 11/20/2017 Gastrointestinal No abdominal pain 2017 Neurologic No alteration of consciousness 11/20/2017 Neurologic memory loss 11/20/2017 Dermatologic erythema 11/20/2017 Constitutional No chills 11/08/2017 Constitutional No fatigue 11/08/2017 Constitutional No fever 11/08/2017 Constitutional No insomnia 11/08/2017 Constitutional No malaise 11/08/2017 Eyes No vision change 11/08/2017 Ears/Nose/Throat/Neck No dizziness 2017 Ears/Nose/Throat/Neck No dysphagia 2017 Ears/Nose/Throat/Neck No hearing loss Ears/Nose/Throat/Neck No nasal allergies 11/08/2017 Ears/Nose/Throat/Neck No sore throat Cardiovascular No chest pain/pressure Cardiovascular No dyspnea 11/08/2017 Cardiovascular No edema 11/08/2017 Cardiovascular No exercise intolerance Cardiovascular No fatigue 11/08/2017 Cardiovascular No near-syncope/dizziness 11/08/2017 Respiratory No chest tightness 2017 Respiratory No cough 11/08/2017 Respiratory No dyspnea 11/08/2017 Respiratory No pedal edema 11/08/2017 Gastrointestinal No abdominal pain 2017 Gastrointestinal No gastroesophageal reflux 11/08/2017 Genitourinary/Nephrology No nocturia Genitourinary/Nephrology No urinary incontinence 11/08/2017 Musculoskeletal No muscle weakness 2017 Musculoskeletal No myalgias 11/08/2017 Neurologic No dizziness 11/08/2017 Neurologic No neck pain 11/08/2017 Neurologic No syncope 11/08/2017 Psychiatric No anxiety 11/08/2017 Psychiatric No depression 11/08/2017 Musculoskeletal joint complaint 2017 Constitutional No recent illness 2017 Constitutional No chills 07/26/2017 Constitutional No fatigue 07/26/2017 Constitutional No fever 07/26/2017 Constitutional No insomnia 07/26/2017 Constitutional No malaise 07/26/2017 Eyes No vision change 07/26/2017 Ears/Nose/Throat/Neck No dental pain Ears/Nose/Throat/Neck No dizziness 2017 Ears/Nose/Throat/Neck No dysphagia 2017 Ears/Nose/Throat/Neck No hearing loss Ears/Nose/Throat/Neck No nasal allergies 07/26/2017 Ears/Nose/Throat/Neck No sore throat Ears/Nose/Throat/Neck otalgia 07/26/2017 Ears/Nose/Throat/Neck No postnasal drip 07/26/2017 Ears/Nose/Throat/Neck No sinus congestion 07/26/2017 Cardiovascular No chest pain/pressure Cardiovascular No dyspnea 07/26/2017 Cardiovascular No edema 07/26/2017 Cardiovascular No exercise intolerance Cardiovascular No fatigue 07/26/2017 Cardiovascular No near-syncope/dizziness 07/26/2017 Respiratory No chest tightness 2017 Respiratory No cough 07/26/2017 Respiratory No dyspnea 07/26/2017 Respiratory No pedal edema 07/26/2017 Gastrointestinal No abdominal pain 2017 Gastrointestinal constipation 07/26/2017 Gastrointestinal No diarrhea 07/26/2017 Gastrointestinal No gastroesophageal reflux 07/26/2017 Genitourinary/Nephrology dysuria 2017 Genitourinary/Nephrology No nocturia Genitourinary/Nephrology No urinary incontinence 07/26/2017 Musculoskeletal stiffness 07/26/2017 Musculoskeletal No swelling 07/26/2017 Musculoskeletal No muscle weakness 2017 Musculoskeletal No myalgias 07/26/2017 Neurologic No dizziness 07/26/2017 Neurologic No neck pain 07/26/2017 Neurologic No syncope 07/26/2017 Psychiatric No anxiety 07/26/2017 Psychiatric No depression 07/26/2017 Constitutional No recent illness 2017 Constitutional No chills 04/12/2017 Constitutional No fatigue 04/12/2017 Constitutional No fever 04/12/2017 Constitutional No insomnia 04/12/2017 Constitutional No malaise 04/12/2017 Eyes No vision change 04/12/2017 Ears/Nose/Throat/Neck No dental pain Ears/Nose/Throat/Neck No dizziness 2017 Ears/Nose/Throat/Neck No dysphagia 2017 Ears/Nose/Throat/Neck No hearing loss Ears/Nose/Throat/Neck No nasal allergies 04/12/2017 Ears/Nose/Throat/Neck No sore throat Ears/Nose/Throat/Neck otalgia 04/12/2017 Ears/Nose/Throat/Neck No postnasal drip 04/12/2017 Ears/Nose/Throat/Neck No sinus congestion 04/12/2017 Cardiovascular No chest pain/pressure Cardiovascular No dyspnea 04/12/2017 Cardiovascular No edema 04/12/2017 Cardiovascular No exercise intolerance Cardiovascular No fatigue 04/12/2017 Cardiovascular No near-syncope/dizziness 04/12/2017 Respiratory No chest tightness 2017 Respiratory No cough 04/12/2017 Respiratory No dyspnea 04/12/2017 Respiratory No pedal edema 04/12/2017 Gastrointestinal No abdominal pain 2017 Gastrointestinal No constipation 2017 Gastrointestinal No diarrhea 04/12/2017 Gastrointestinal No gastroesophageal reflux 04/12/2017 Gastrointestinal No nausea 04/12/2017 Gastrointestinal No vomiting 04/12/2017 Genitourinary/Nephrology dysuria 2017 Genitourinary/Nephrology No nocturia Genitourinary/Nephrology No urinary incontinence 04/12/2017 Musculoskeletal stiffness 04/12/2017 Musculoskeletal No swelling 04/12/2017 Musculoskeletal No muscle weakness 2017 Musculoskeletal No myalgias 04/12/2017 Dermatologic No rash 04/12/2017 Dermatologic No sores 04/12/2017 Neurologic No dizziness 04/12/2017 Neurologic No neck pain 04/12/2017 Neurologic No syncope 04/12/2017 Psychiatric No anxiety 04/12/2017 Psychiatric No depression 04/12/2017 Constitutional No recent illness 2016 Constitutional No chills 01/09/2017 Constitutional No fatigue 01/09/2017 Constitutional No fever 01/09/2017 Constitutional No insomnia 01/09/2017 Constitutional No malaise 01/09/2017 Eyes No vision change 01/09/2017 Ears/Nose/Throat/Neck No dental pain Ears/Nose/Throat/Neck No dizziness 2016 Ears/Nose/Throat/Neck No dysphagia 2016 Ears/Nose/Throat/Neck No hearing loss Ears/Nose/Throat/Neck No nasal allergies 01/09/2017 Ears/Nose/Throat/Neck No sore throat Ears/Nose/Throat/Neck otalgia 01/09/2017 Ears/Nose/Throat/Neck No postnasal drip 01/09/2017 Ears/Nose/Throat/Neck No sinus congestion 01/09/2017 Cardiovascular No chest pain/pressure Cardiovascular No dyspnea 01/09/2017 Cardiovascular No edema 01/09/2017 Cardiovascular No exercise intolerance Cardiovascular No fatigue 01/09/2017 Cardiovascular No near-syncope/dizziness 01/09/2017 Respiratory No chest tightness 2016 Respiratory No cough 01/09/2017 Respiratory No dyspnea 01/09/2017 Respiratory No pedal edema 01/09/2017 Gastrointestinal No abdominal pain 2016 Gastrointestinal No constipation 2016 Gastrointestinal No diarrhea 01/09/2017 Gastrointestinal No gastroesophageal reflux 01/09/2017 Gastrointestinal No nausea 01/09/2017 Gastrointestinal No vomiting 01/09/2017 Genitourinary/Nephrology dysuria 2016 Genitourinary/Nephrology No nocturia Genitourinary/Nephrology No urinary incontinence 01/09/2017 Musculoskeletal stiffness 01/09/2017 Musculoskeletal No swelling 01/09/2017 Musculoskeletal No muscle weakness 2016 Musculoskeletal No myalgias 01/09/2017 Dermatologic No rash 01/09/2017 Dermatologic No sores 01/09/2017 Neurologic No dizziness 01/09/2017 Neurologic No neck pain 01/09/2017 Neurologic No syncope 01/09/2017 Psychiatric No anxiety 01/09/2017 Psychiatric No depression 01/09/2017 Constitutional No recent illness 2016 Constitutional No chills 12/11/2016 Constitutional No fatigue 12/11/2016 Constitutional No fever 12/11/2016 Constitutional No insomnia 12/11/2016 Constitutional No malaise 12/11/2016 Eyes No vision change 12/11/2016 Ears/Nose/Throat/Neck No dental pain Ears/Nose/Throat/Neck No dizziness 2016 Ears/Nose/Throat/Neck No dysphagia 2016 Ears/Nose/Throat/Neck No hearing loss Ears/Nose/Throat/Neck No nasal allergies 12/11/2016 Ears/Nose/Throat/Neck No sore throat Ears/Nose/Throat/Neck otalgia 12/11/2016 Ears/Nose/Throat/Neck No postnasal drip 12/11/2016 Ears/Nose/Throat/Neck No sinus congestion 12/11/2016 Cardiovascular No chest pain/pressure Cardiovascular No dyspnea 12/11/2016 Cardiovascular No edema 12/11/2016 Cardiovascular No exercise intolerance Cardiovascular No fatigue 12/11/2016 Cardiovascular No near-syncope/dizziness 12/11/2016 Respiratory No chest tightness 2016 Respiratory No cough 12/11/2016 Respiratory No dyspnea 12/11/2016 Respiratory No pedal edema 12/11/2016 Gastrointestinal No abdominal pain 2016 Gastrointestinal No constipation 2016 Gastrointestinal No diarrhea 12/11/2016 Gastrointestinal No gastroesophageal reflux 12/11/2016 Gastrointestinal No nausea 12/11/2016 Gastrointestinal No vomiting 12/11/2016 Genitourinary/Nephrology No dysuria 12/11 Genitourinary/Nephrology No nocturia Genitourinary/Nephrology No urinary incontinence 12/11/2016 Musculoskeletal No stiffness 12/11/2016 Musculoskeletal No swelling 12/11/2016 Musculoskeletal No muscle weakness 2016 Musculoskeletal No myalgias 12/11/2016 Dermatologic No rash 12/11/2016 Dermatologic No sores 12/11/2016 Neurologic No dizziness 12/11/2016 Neurologic headache 12/11/2016 Neurologic No neck pain 12/11/2016 Neurologic No syncope 12/11/2016 Psychiatric No anxiety 12/11/2016 Psychiatric No depression 12/11/2016 Constitutional recent illness 11/29/2016 Constitutional No chills 11/29/2016 Constitutional No diaphoresis 11/29/2016 Constitutional No fever 11/29/2016 Eyes No eye erythema 11/29/2016 Ears/Nose/Throat/Neck nasal allergies 05/2016 Ears/Nose/Throat/Neck nasal discharge 05/2016 Ears/Nose/Throat/Neck No sinus congestion 11/29/2016 Ears/Nose/Throat/Neck No sore throat 05/2016 Ears/Nose/Throat/Neck postnasal drip 05/2016 Cardiovascular No chest pain/pressure 05/2016 Cardiovascular No dyspnea 11/29/2016 Respiratory cough 11/29/2016 Respiratory dyspnea on exertion 2016 Respiratory No chest tightness 2016 Gastrointestinal No abdominal pain 2016 Gastrointestinal No constipation 2016 Gastrointestinal No diarrhea 11/29/2016 Gastrointestinal No nausea 11/29/2016 Gastrointestinal No vomiting 11/29/2016 Dermatologic No rash 11/29/2016 Neurologic No alteration of consciousness 11/29/2016 Neurologic No mental status change 2016 Constitutional No recent illness 2016 Constitutional No chills 09/21/2016 Constitutional No fatigue 09/21/2016 Constitutional No fever 09/21/2016 Constitutional No insomnia 09/21/2016 Constitutional No malaise 09/21/2016 Eyes No vision change 09/21/2016 Ears/Nose/Throat/Neck No dental pain Ears/Nose/Throat/Neck No dizziness 2016 Ears/Nose/Throat/Neck No dysphagia 2016 Ears/Nose/Throat/Neck No hearing loss Ears/Nose/Throat/Neck No nasal allergies 09/21/2016 Ears/Nose/Throat/Neck No sore throat Ears/Nose/Throat/Neck otalgia 09/21/2016 Ears/Nose/Throat/Neck No postnasal drip 09/21/2016 Ears/Nose/Throat/Neck No sinus congestion 09/21/2016 Cardiovascular No chest pain/pressure Cardiovascular No dyspnea 09/21/2016 Cardiovascular No edema 09/21/2016 Cardiovascular No exercise intolerance Cardiovascular No fatigue 09/21/2016 Cardiovascular No near-syncope/dizziness 09/21/2016 Respiratory No chest tightness 2016 Respiratory No cough 09/21/2016 Respiratory No dyspnea 09/21/2016 Respiratory No pedal edema 09/21/2016 Gastrointestinal No abdominal pain 2016 Gastrointestinal No constipation 2016 Gastrointestinal No diarrhea 09/21/2016 Gastrointestinal No gastroesophageal reflux 09/21/2016 Gastrointestinal No nausea 09/21/2016 Gastrointestinal No vomiting 09/21/2016 Genitourinary/Nephrology No dysuria 09/21 Genitourinary/Nephrology No nocturia Genitourinary/Nephrology No urinary incontinence 09/21/2016 Musculoskeletal No stiffness 09/21/2016 Musculoskeletal No swelling 09/21/2016 Musculoskeletal No muscle weakness 2016 Musculoskeletal No myalgias 09/21/2016 Dermatologic No rash 09/21/2016 Dermatologic No sores 09/21/2016 Neurologic No dizziness 09/21/2016 Neurologic headache 09/21/2016 Neurologic No neck pain 09/21/2016 Neurologic No syncope 09/21/2016 Psychiatric No anxiety 09/21/2016 Psychiatric No depression 09/21/2016 Constitutional No recent illness 2016 Constitutional No chills 08/23/2016 Constitutional No fatigue 08/23/2016 Constitutional No fever 08/23/2016 Constitutional No insomnia 08/23/2016 Constitutional No malaise 08/23/2016 Eyes No vision change 08/23/2016 Ears/Nose/Throat/Neck No dental pain Ears/Nose/Throat/Neck No dizziness 2016 Ears/Nose/Throat/Neck No dysphagia 2016 Ears/Nose/Throat/Neck No hearing loss Ears/Nose/Throat/Neck No nasal allergies 08/23/2016 Ears/Nose/Throat/Neck No sore throat Ears/Nose/Throat/Neck otalgia 08/23/2016 Ears/Nose/Throat/Neck No postnasal drip 08/23/2016 Ears/Nose/Throat/Neck No sinus congestion 08/23/2016 Cardiovascular No chest pain/pressure Cardiovascular No dyspnea 08/23/2016 Cardiovascular No edema 08/23/2016 Cardiovascular No exercise intolerance Cardiovascular No fatigue 08/23/2016 Cardiovascular No near-syncope/dizziness 08/23/2016 Respiratory No chest tightness 2016 Respiratory No cough 08/23/2016 Respiratory No dyspnea 08/23/2016 Respiratory No pedal edema 08/23/2016 Gastrointestinal No abdominal pain 2016 Gastrointestinal No constipation 2016 Gastrointestinal No diarrhea 08/23/2016 Gastrointestinal No gastroesophageal reflux 08/23/2016 Gastrointestinal No nausea 08/23/2016 Gastrointestinal No vomiting 08/23/2016 Genitourinary/Nephrology No dysuria 08/23 Genitourinary/Nephrology No nocturia Genitourinary/Nephrology No urinary incontinence 08/23/2016 Musculoskeletal No stiffness 08/23/2016 Musculoskeletal No swelling 08/23/2016 Musculoskeletal No muscle weakness 2016 Musculoskeletal No myalgias 08/23/2016 Dermatologic No rash 08/23/2016 Dermatologic No sores 08/23/2016 Neurologic No dizziness 08/23/2016 Neurologic headache 08/23/2016 Neurologic No neck pain 08/23/2016 Neurologic No syncope 08/23/2016 Psychiatric No anxiety 08/23/2016 Psychiatric No depression 08/23/2016 Constitutional No recent illness 2016 Constitutional No chills 08/07/2016 Constitutional No fatigue 08/07/2016 Constitutional No fever 08/07/2016 Constitutional No insomnia 08/07/2016 Constitutional No malaise 08/07/2016 Eyes No vision change 08/07/2016 Ears/Nose/Throat/Neck No dental pain 01/2017 Ears/Nose/Throat/Neck No dizziness 2016 Ears/Nose/Throat/Neck No dysphagia 2016 Ears/Nose/Throat/Neck headache 2016 Ears/Nose/Throat/Neck No hearing loss 01/2017 Ears/Nose/Throat/Neck No nasal allergies 08/07/2016 Ears/Nose/Throat/Neck No sore throat 01/2017 Ears/Nose/Throat/Neck otalgia 08/07/2016 Ears/Nose/Throat/Neck No postnasal drip 08/07/2016 Ears/Nose/Throat/Neck No sinus congestion 08/07/2016 Cardiovascular No chest pain/pressure 01/2017 Cardiovascular No dyspnea 08/07/2016 Cardiovascular No edema 08/07/2016 Cardiovascular No exercise intolerance Cardiovascular No fatigue 08/07/2016 Cardiovascular No near-syncope/dizziness 08/07/2016 Respiratory No chest tightness 2016 Respiratory No cough 08/07/2016 Respiratory No dyspnea 08/07/2016 Respiratory No pedal edema 08/07/2016 Gastrointestinal No abdominal pain 2016 Gastrointestinal No constipation 2016 Gastrointestinal No diarrhea 08/07/2016 Gastrointestinal No gastroesophageal reflux 08/07/2016 Gastrointestinal No nausea 08/07/2016 Gastrointestinal No vomiting 08/07/2016 Genitourinary/Nephrology No dysuria 08/07 Genitourinary/Nephrology No nocturia 01/2017 Genitourinary/Nephrology No urinary incontinence 08/07/2016 Musculoskeletal No stiffness 08/07/2016 Musculoskeletal No swelling 08/07/2016 Musculoskeletal No muscle weakness 2016 Musculoskeletal No myalgias 08/07/2016 Dermatologic No rash 08/07/2016 Dermatologic No sores 08/07/2016 Neurologic No dizziness 08/07/2016 Neurologic headache 08/07/2016 Neurologic No neck pain 08/07/2016 Neurologic No syncope 08/07/2016 Psychiatric No anxiety 08/07/2016 Psychiatric No depression 08/07/2016 Ears/Nose/Throat/Neck taste change 2016 Ears/Nose/Throat/Neck oral pain 2016 Constitutional recent illness 06/27/2016 Constitutional anorexia 06/27/2016 Constitutional No night sweats 2016 Constitutional No chills 06/27/2016 Constitutional No diaphoresis 06/27/2016 Constitutional fatigue 06/27/2016 Constitutional No fever 06/27/2016 Constitutional No insomnia 06/27/2016 Constitutional No malaise 06/27/2016 Constitutional No weight loss 06/27/2016 Constitutional No weight gain 06/27/2016 Eyes No eye discharge 06/27/2016 Eyes No eye erythema 06/27/2016 Ears/Nose/Throat/Neck dizziness 2016 Ears/Nose/Throat/Neck No headache 2016 Ears/Nose/Throat/Neck oral pain 2016 Cardiovascular No chest pain/pressure 03/2016 Cardiovascular No dyspnea 06/27/2016 Cardiovascular No edema 06/27/2016 Respiratory No productive sputum 2016 Respiratory No chest congestion 2016 Respiratory No cough 06/27/2016 Respiratory dyspnea on exertion 2016 Gastrointestinal No abdominal pain 2016 Gastrointestinal No constipation 2016 Gastrointestinal diarrhea 06/27/2016 Gastrointestinal nausea 06/27/2016 Gastrointestinal No vomiting 06/27/2016 Genitourinary/Nephrology No dysuria 06/27 Musculoskeletal No joint complaint 2016 Dermatologic No rash 06/27/2016 Dermatologic sores 06/27/2016 Neurologic No alteration of consciousness 06/27/2016 Constitutional recent illness 06/13/2016 Constitutional anorexia 06/13/2016 Constitutional No night sweats 2016 Constitutional No chills 06/13/2016 Constitutional No diaphoresis 06/13/2016 Constitutional fatigue 06/13/2016 Constitutional No fever 06/13/2016 Constitutional No insomnia 06/13/2016 Constitutional No malaise 06/13/2016 Constitutional No weight loss 06/13/2016 Constitutional No weight gain 06/13/2016 Eyes No eye discharge 06/13/2016 Eyes No eye erythema 06/13/2016 Ears/Nose/Throat/Neck dizziness 2016 Ears/Nose/Throat/Neck No headache 2016 Cardiovascular No chest pain/pressure Cardiovascular No dyspnea 06/13/2016 Cardiovascular No edema 06/13/2016 Respiratory No productive sputum 2016 Respiratory No chest congestion 2016 Respiratory No cough 06/13/2016 Respiratory dyspnea on exertion 2016 Gastrointestinal No abdominal pain 2016 Gastrointestinal No constipation 2016 Gastrointestinal diarrhea 06/13/2016 Gastrointestinal nausea 06/13/2016 Gastrointestinal No vomiting 06/13/2016 Genitourinary/Nephrology No dysuria 06/13 Musculoskeletal No joint complaint 2016 Dermatologic No rash 06/13/2016 Neurologic No alteration of consciousness 06/13/2016 Dermatologic sores 06/13/2016 Ears/Nose/Throat/Neck oral pain 2016 Constitutional No recent illness 2016 Constitutional No chills 05/24/2016 Constitutional No fatigue 05/24/2016 Constitutional No fever 05/24/2016 Constitutional No insomnia 05/24/2016 Constitutional No malaise 05/24/2016 Eyes No vision change 05/24/2016 Ears/Nose/Throat/Neck No dental pain Ears/Nose/Throat/Neck No dizziness 2016 Ears/Nose/Throat/Neck No dysphagia 2016 Ears/Nose/Throat/Neck headache 2016 Ears/Nose/Throat/Neck No hearing loss Ears/Nose/Throat/Neck No nasal allergies 05/24/2016 Ears/Nose/Throat/Neck No sore throat Ears/Nose/Throat/Neck otalgia 05/24/2016 Ears/Nose/Throat/Neck No postnasal drip 05/24/2016 Ears/Nose/Throat/Neck No sinus congestion 05/24/2016 Cardiovascular No chest pain/pressure Cardiovascular No dyspnea 05/24/2016 Cardiovascular No edema 05/24/2016 Cardiovascular No exercise intolerance Cardiovascular No fatigue 05/24/2016 Cardiovascular No near-syncope/dizziness 05/24/2016 Respiratory No chest tightness 2016 Respiratory No cough 05/24/2016 Respiratory No dyspnea 05/24/2016 Respiratory No pedal edema 05/24/2016 Gastrointestinal No abdominal pain 2016 Gastrointestinal No constipation 2016 Gastrointestinal No diarrhea 05/24/2016 Gastrointestinal No gastroesophageal reflux 05/24/2016 Gastrointestinal No nausea 05/24/2016 Gastrointestinal No vomiting 05/24/2016 Genitourinary/Nephrology No dysuria 05/24 Genitourinary/Nephrology No nocturia Genitourinary/Nephrology No urinary incontinence 05/24/2016 Musculoskeletal No stiffness 05/24/2016 Musculoskeletal No swelling 05/24/2016 Musculoskeletal No muscle weakness 2016 Musculoskeletal No myalgias 05/24/2016 Dermatologic No rash 05/24/2016 Dermatologic No sores 05/24/2016 Neurologic No dizziness 05/24/2016 Neurologic headache 05/24/2016 Neurologic No neck pain 05/24/2016 Neurologic No syncope 05/24/2016 Psychiatric No anxiety 05/24/2016 Psychiatric No depression 05/24/2016 Constitutional recent illness 04/26/2016 Constitutional No chills 04/26/2016 Constitutional No fatigue 04/26/2016 Constitutional No fever 04/26/2016 Constitutional No malaise 04/26/2016 Eyes No vision change 04/26/2016 Ears/Nose/Throat/Neck No sore throat 02/2016 Ears/Nose/Throat/Neck No otalgia 2016 Ears/Nose/Throat/Neck postnasal drip 02/2016 Ears/Nose/Throat/Neck No sinus congestion 04/26/2016 Cardiovascular No chest pain/pressure 02/2016 Cardiovascular No dyspnea 04/26/2016 Respiratory cough 04/26/2016 Respiratory No dyspnea 04/26/2016 Gastrointestinal No abdominal pain 2016 Gastrointestinal No constipation 2016 Gastrointestinal No diarrhea 04/26/2016 Gastrointestinal No gastroesophageal reflux 04/26/2016 Gastrointestinal No nausea 04/26/2016 Gastrointestinal No vomiting 04/26/2016 Dermatologic No rash 04/26/2016 Ears/Nose/Throat/Neck nasal allergies 02/2016 Cardiovascular No edema 04/26/2016 Respiratory productive sputum 04/26/2016 Respiratory wheezing 04/26/2016 Genitourinary/Nephrology No dysuria 04/26 Musculoskeletal No joint complaint 2016 Neurologic No alteration of consciousness 04/26/2016 Neurologic No mental status change 2016 Constitutional No recent illness 2015 Constitutional No chills 02/17/2016 Constitutional No fatigue 02/17/2016 Constitutional No fever 02/17/2016 Constitutional No insomnia 02/17/2016 Constitutional No malaise 02/17/2016 Eyes No vision change 02/17/2016 Ears/Nose/Throat/Neck No dental pain Ears/Nose/Throat/Neck No dizziness 2015 Ears/Nose/Throat/Neck No dysphagia 2015 Ears/Nose/Throat/Neck headache 2015 Ears/Nose/Throat/Neck No hearing loss Ears/Nose/Throat/Neck No nasal allergies 02/17/2016 Ears/Nose/Throat/Neck No sore throat Ears/Nose/Throat/Neck No postnasal drip 02/17/2016 Ears/Nose/Throat/Neck No sinus congestion 02/17/2016 Cardiovascular No chest pain/pressure Cardiovascular No dyspnea 02/17/2016 Cardiovascular No edema 02/17/2016 Cardiovascular No exercise intolerance Cardiovascular No fatigue 02/17/2016 Cardiovascular No near-syncope/dizziness 02/17/2016 Respiratory No chest tightness 2015 Respiratory No cough 02/17/2016 Respiratory No dyspnea 02/17/2016 Respiratory No pedal edema 02/17/2016 Gastrointestinal No abdominal pain 2015 Gastrointestinal No constipation 2015 Gastrointestinal No diarrhea 02/17/2016 Gastrointestinal No gastroesophageal reflux 02/17/2016 Gastrointestinal No nausea 02/17/2016 Gastrointestinal No vomiting 02/17/2016 Genitourinary/Nephrology No dysuria 02/16 Genitourinary/Nephrology No nocturia Genitourinary/Nephrology No urinary incontinence 02/17/2016 Musculoskeletal No stiffness 02/17/2016 Musculoskeletal No swelling 02/17/2016 Musculoskeletal No muscle weakness 2015 Musculoskeletal No myalgias 02/17/2016 Dermatologic No rash 02/17/2016 Dermatologic No sores 02/17/2016 Neurologic No dizziness 02/17/2016 Neurologic headache 02/17/2016 Neurologic No neck pain 02/17/2016 Neurologic No syncope 02/17/2016 Psychiatric No anxiety 02/17/2016 Psychiatric No depression 02/17/2016 Ears/Nose/Throat/Neck otalgia 02/17/2016 Physical Exam Exam Name System Name Item Name Status Result Effective Dates Notes Full Exam - General 1994 Constitutional general appearance Development: well developed 11/20/2017 None Full Exam - General 1994 Constitutional general appearance Development: appears stated age 0911/20/2017 None Full Exam - General 1994 Constitutional general appearance Hygiene/Attention to Grooming: good hygiene 11/20/2017 None Full Exam - General 1994 Eyes conjunctiva /eyelids Overall: conjunctiva clear 11/20/2017 None Full Exam - General 1994 Eyes conjunctiva /eyelids Overall: cornea clear 11/20/2017 None Full Exam - General 1994 Eyes conjunctiva /eyelids Overall: eyelids normal 11/20/2017 None Full Exam - General 1994 Eyes pupils and irises Overall: pupils equal, round, reactive to light and accomodation 11/20/2017 None Full Exam - General 1994 Ears/Nose/Throat lips/teeth/gingiva Overall: benign lips 11/20/2017 None Full Exam - General 1994 Ears/Nose/Throat oral cavity/pharynx/larynx Overall: oral mucosa clear 11/20/2017 None Full Exam - General 1994 Respiratory respiratory effort/rhythm Overall: no retractions 11/20/2017 None Full Exam - General 1994 Respiratory respiratory effort/rhythm Overall: normal rate 11/20/2017 None Full Exam - General 1994 Cardiovascular extremities Overall: no clubbing 11/20/2017 None Full Exam - General 1994 Musculoskeletal upper extremity Inspection - wrist: redness 11/20/2017 None Full Exam - General 1994 Musculoskeletal upper extremity Inspection - wrist: swelling 11/20/2017 None Full Exam - General 1994 Musculoskeletal upper extremity Palpation - wrist: tender 11/20/2017 along lateral wrist and on palmar surface of wrist Full Exam - General 1994 Musculoskeletal upper extremity ROM - wrist: decreased flexion 11/20/2017 None Full Exam - General 1994 Musculoskeletal upper extremity ROM - wrist: pain with flexion 11/20/2017 None Full Exam - General 1994 Musculoskeletal upper extremity ROM - wrist: decreased radial bending 11/20/2017 None Full Exam - General 1994 Musculoskeletal upper extremity ROM - wrist: pain with radial bending 11/20/2017 None Full Exam - General 1994 Musculoskeletal upper extremity ROM - wrist: decreased ulnar bending 11/20/2017 None Full Exam - General 1994 Musculoskeletal upper extremity ROM - wrist: pain with ulnar bending 11/20/2017 None Full Exam - General 1994 Musculoskeletal upper extremity Inspection - carpals: redness 11/20/2017 None Full Exam - General 1994 Musculoskeletal upper extremity Inspection - carpals: swelling 11/20/2017 along lateral edge of thumb Full Exam - General 1994 Musculoskeletal spine, ribs and pelvis Posture: kyphosis 11/20/2017 slight Full Exam - General 1994 Musculoskeletal head and neck Overall: head atraumatic 11/20/2017 None Full Exam - General 1994 Psychiatric orientation/consciousness Overall: oriented to person, place and time 11/20/2017 None Full Exam - General 1994 Psychiatric mood and affect Overall: normal mood and affect 11/20/2017 None Full Exam - General 1994 Constitutional general appearance Development: well developed 11/08/2017 None Full Exam - General 1994 Constitutional general appearance Development: appears stated age 0911/08/2017 None Full Exam - General 1994 Constitutional general appearance Hygiene/Attention to Grooming: good hygiene 11/08/2017 None Full Exam - General 1994 Eyes conjunctiva /eyelids Overall: conjunctiva clear 11/08/2017 None Full Exam - General 1994 Eyes conjunctiva /eyelids Overall: cornea clear 11/08/2017 None Full Exam - General 1994 Eyes conjunctiva /eyelids Overall: eyelids normal 11/08/2017 None Full Exam - General 1994 Eyes pupils and irises Overall: pupils equal, round, reactive to light and accomodation 11/08/2017 None Full Exam - General 1995 Ears/Nose/Throat otoscopic exam Overall: external auditory canals clear 11/08/2017 None Full Exam - General 1995 Ears/Nose/Throat otoscopic exam Overall: tympanic membranes clear 11/08/2017 None Full Exam - General 1994 Ears/Nose/Throat lips/teeth/gingiva Overall: benign lips 11/08/2017 None Full Exam - General 1995 Ears/Nose/Throat lips/teeth/gingiva Overall: normal dentition 11/08/2017 None Full Exam - General 1994 Ears/Nose/Throat oral cavity/pharynx/larynx Overall: oral mucosa clear 11/08/2017 None Full Exam - General 1995 Ears/Nose/Throat oral cavity/pharynx/larynx Overall: oropharyngeal mucosa clear 11/08/2017 None Full Exam - General 1995 Ears/Nose/Throat oral cavity/pharynx/larynx Overall: hypopharynx benign 11/08/2017 None Full Exam - General 1994 Ears/Nose/Throat oral cavity/pharynx/larynx Overall: no masses 11/08/2017 None Full Exam - General 1994 Respiratory auscultation Overall: breath sounds clear bilaterally 11/08/2017 None Full Exam - General 1994 Respiratory respiratory effort/rhythm Overall: no retractions 11/08/2017 None Full Exam - General 1994 Respiratory respiratory effort/rhythm Overall: normal rate 11/08/2017 None Full Exam - General 1994 Cardiovascular extremities Overall: no clubbing 11/08/2017 None Full Exam - General 1994 Cardiovascular auscultation of heart Overall: regular rate 11/08/2017 None Full Exam - General 1994 Cardiovascular auscultation of heart Overall: normal heart sounds 11/08/2017 None Full Exam - General 1994 Musculoskeletal head and neck Overall: head atraumatic 11/08/2017 None Full Exam - General 1994 Musculoskeletal head and neck Overall: cervical spine benign 11/08/2017 None Full Exam - General 1994 Neurologic deep tendon reflexes Overall: deep tendon reflexes intact 11/08/2017 None Full Exam - General 1994 Psychiatric orientation/consciousness Overall: oriented to person, place and time 11/08/2017 None Full Exam - General 1994 Psychiatric mood and affect Overall: normal mood and affect 11/08/2017 None Full Exam - General 1994 Musculoskeletal spine, ribs and pelvis Posture: kyphosis 11/08/2017 slight Full Exam - General 1994 Musculoskeletal upper extremity Inspection - wrist: redness 11/08/2017 None Full Exam - General 1994 Musculoskeletal upper extremity Inspection - wrist: swelling 11/08/2017 None Full Exam - General 1994 Musculoskeletal upper extremity Palpation - wrist: tender 11/08/2017 along lateral wrist and on palmar surface of wrist Full Exam - General 1994 Musculoskeletal upper extremity ROM - wrist: decreased flexion 11/08/2017 None Full Exam - General 1994 Musculoskeletal upper extremity ROM - wrist: pain with flexion 11/08/2017 None Full Exam - General 1994 Musculoskeletal upper extremity ROM - wrist: decreased radial bending 11/08/2017 None Full Exam - General 1994 Musculoskeletal upper extremity ROM - wrist: pain with radial bending 11/08/2017 None Full Exam - General 1994 Musculoskeletal upper extremity ROM - wrist: decreased ulnar bending 11/08/2017 None Full Exam - General 1994 Musculoskeletal upper extremity ROM - wrist: pain with ulnar bending 11/08/2017 None Full Exam - General 1994 Musculoskeletal upper extremity Inspection - carpals: redness 11/08/2017 None Full Exam - General 1994 Musculoskeletal upper extremity Inspection - carpals: swelling 11/08/2017 along lateral edge of thumb Full Exam - General 1994 Constitutional general appearance Development: well developed 07/26/2017 None Full Exam - General 1994 Constitutional general appearance Development: appears stated age 0507/26/2017 None Full Exam - General 1994 Constitutional general appearance Hygiene/Attention to Grooming: good hygiene 07/26/2017 None Full Exam - General 1994 Eyes conjunctiva /eyelids Overall: conjunctiva clear 07/26/2017 None Full Exam - General 1994 Eyes conjunctiva /eyelids Overall: cornea clear 07/26/2017 None Full Exam - General 1994 Eyes conjunctiva /eyelids Overall: eyelids normal 07/26/2017 None Full Exam - General 1994 Eyes pupils and irises Overall: pupils equal, round, reactive to light and accomodation 07/26/2017 None Full Exam - General 1994 Ears/Nose/Throat otoscopic exam Overall: external auditory canals clear 07/26/2017 None Full Exam - General 1994 Ears/Nose/Throat otoscopic exam Overall: tympanic membranes clear 07/26/2017 None Full Exam - General 1994 Ears/Nose/Throat lips/teeth/gingiva Overall: benign lips 07/26/2017 None Full Exam - General 1994 Ears/Nose/Throat lips/teeth/gingiva Overall: normal dentition 07/26/2017 None Full Exam - General 1994 Ears/Nose/Throat oral cavity/pharynx/larynx Overall: oral mucosa clear 07/26/2017 None Full Exam - General 1994 Ears/Nose/Throat oral cavity/pharynx/larynx Overall: oropharyngeal mucosa clear 07/26/2017 None Full Exam - General 1994 Ears/Nose/Throat oral cavity/pharynx/larynx Overall: hypopharynx benign 07/26/2017 None Full Exam - General 1994 Ears/Nose/Throat oral cavity/pharynx/larynx Overall: no masses 07/26/2017 None Full Exam - General 1994 Respiratory auscultation Overall: breath sounds clear bilaterally 07/26/2017 None Full Exam - General 1994 Respiratory respiratory effort/rhythm Overall: no retractions 07/26/2017 None Full Exam - General 1994 Respiratory respiratory effort/rhythm Overall: normal rate 07/26/2017 None Full Exam - General 1994 Cardiovascular extremities Overall: no clubbing 07/26/2017 None Full Exam - General 1994 Cardiovascular auscultation of heart Overall: regular rate 07/26/2017 None Full Exam - General 1994 Cardiovascular auscultation of heart Overall: normal heart sounds 07/26/2017 None Full Exam - General 1994 Abdomen abdominal exam Overall: no tenderness 07/26/2017 None Full Exam - General 1994 Abdomen abdominal exam Overall: normal bowel sounds 07/26/2017 None Full Exam - General 1994 Musculoskeletal spine, ribs and pelvis Overall: spine benign 07/26/2017 None Full Exam - General 1994 Musculoskeletal spine, ribs and pelvis Overall: sacroiliac joint benign 07/26/2017 None Full Exam - General 1994 Musculoskeletal spine, ribs and pelvis Overall: good posture 07/26/2017 None Full Exam - General 1994 Musculoskeletal head and neck Overall: head atraumatic 07/26/2017 None Full Exam - General 1994 Musculoskeletal head and neck Overall: cervical spine benign 07/26/2017 None Full Exam - General 1994 Neurologic deep tendon reflexes Overall: deep tendon reflexes intact 07/26/2017 None Full Exam - General 1994 Neurologic cranial nerves Overall: crainial nerves 2 - 12 grossly intact 07/26/2017 None Full Exam - General 1994 Psychiatric orientation/consciousness Overall: oriented to person, place and time 07/26/2017 None Full Exam - General 1994 Psychiatric mood and affect Overall: normal mood and affect 07/26/2017 None Full Exam - General 1994 Constitutional general appearance Development: well developed 04/12/2017 None Full Exam - General 1994 Constitutional general appearance Development: appears stated age 0204/12/2017 None Full Exam - General 1994 Constitutional general appearance Hygiene/Attention to Grooming: good hygiene 04/12/2017 None Full Exam - General 1994 Eyes conjunctiva /eyelids Overall: conjunctiva clear 04/12/2017 None Full Exam - General 1994 Eyes conjunctiva /eyelids Overall: cornea clear 04/12/2017 None Full Exam - General 1994 Eyes conjunctiva /eyelids Overall: eyelids normal 04/12/2017 None Full Exam - General 1994 Eyes pupils and irises Overall: pupils equal, round, reactive to light and accomodation 04/12/2017 None Full Exam - General 1994 Ears/Nose/Throat otoscopic exam Overall: external auditory canals clear 04/12/2017 None Full Exam - General 1994 Ears/Nose/Throat otoscopic exam Overall: tympanic membranes clear 04/12/2017 None Full Exam - General 1994 Ears/Nose/Throat lips/teeth/gingiva Overall: benign lips 04/12/2017 None Full Exam - General 1994 Ears/Nose/Throat lips/teeth/gingiva Overall: normal dentition 04/12/2017 None Full Exam - General 1994 Ears/Nose/Throat oral cavity/pharynx/larynx Overall: oral mucosa clear 04/12/2017 None Full Exam - General 1994 Ears/Nose/Throat oral cavity/pharynx/larynx Overall: oropharyngeal mucosa clear 04/12/2017 None Full Exam - General 1994 Ears/Nose/Throat oral cavity/pharynx/larynx Overall: hypopharynx benign 04/12/2017 None Full Exam - General 1994 Ears/Nose/Throat oral cavity/pharynx/larynx Overall: no masses 04/12/2017 None Full Exam - General 1994 Respiratory auscultation Overall: breath sounds clear bilaterally 04/12/2017 None Full Exam - General 1994 Respiratory respiratory effort/rhythm Overall: no retractions 04/12/2017 None Full Exam - General 1994 Respiratory respiratory effort/rhythm Overall: normal rate 04/12/2017 None Full Exam - General 1994 Cardiovascular extremities Overall: no clubbing 04/12/2017 None Full Exam - General 1994 Cardiovascular auscultation of heart Overall: regular rate 04/12/2017 None Full Exam - General 1994 Cardiovascular auscultation of heart Overall: normal heart sounds 04/12/2017 None Full Exam - General 1994 Abdomen abdominal exam Overall: no tenderness 04/12/2017 None Full Exam - General 1994 Abdomen abdominal exam Overall: normal bowel sounds 04/12/2017 None Full Exam - General 1994 Musculoskeletal spine, ribs and pelvis Overall: spine benign 04/12/2017 None Full Exam - General 1994 Musculoskeletal spine, ribs and pelvis Overall: sacroiliac joint benign 04/12/2017 None Full Exam - General 1994 Musculoskeletal spine, ribs and pelvis Overall: good posture 04/12/2017 None Full Exam - General 1994 Musculoskeletal head and neck Overall: head atraumatic 04/12/2017 None Full Exam - General 1994 Musculoskeletal head and neck Overall: cervical spine benign 04/12/2017 None Full Exam - General 1994 Neurologic deep tendon reflexes Overall: deep tendon reflexes intact 04/12/2017 None Full Exam - General 1994 Neurologic cranial nerves Overall: crainial nerves 2 - 12 grossly intact 04/12/2017 None Full Exam - General 1994 Psychiatric orientation/consciousness Overall: oriented to person, place and time 04/12/2017 None Full Exam - General 1994 Psychiatric mood and affect Overall: normal mood and affect 04/12/2017 None Full Exam - General 1994 Constitutional general appearance Development: well developed 01/09/2017 None Full Exam - General 1994 Constitutional general appearance Development: appears stated age 1101/09/2017 None Full Exam - General 1994 Constitutional general appearance Hygiene/Attention to Grooming: good hygiene 01/09/2017 None Full Exam - General 1994 Eyes conjunctiva /eyelids Overall: conjunctiva clear 01/09/2017 None Full Exam - General 1994 Eyes conjunctiva /eyelids Overall: cornea clear 01/09/2017 None Full Exam - General 1994 Eyes conjunctiva /eyelids Overall: eyelids normal 01/09/2017 None Full Exam - General 1994 Eyes pupils and irises Overall: pupils equal, round, reactive to light and accomodation 01/09/2017 None Full Exam - General 1994 Ears/Nose/Throat otoscopic exam Overall: external auditory canals clear 01/09/2017 None Full Exam - General 1994 Ears/Nose/Throat otoscopic exam Overall: tympanic membranes clear 01/09/2017 None Full Exam - General 1994 Ears/Nose/Throat lips/teeth/gingiva Overall: benign lips 01/09/2017 None Full Exam - General 1994 Ears/Nose/Throat lips/teeth/gingiva Overall: normal dentition 01/09/2017 None Full Exam - General 1994 Ears/Nose/Throat oral cavity/pharynx/larynx Overall: oral mucosa clear 01/09/2017 None Full Exam - General 1994 Ears/Nose/Throat oral cavity/pharynx/larynx Overall: oropharyngeal mucosa clear 01/09/2017 None Full Exam - General 1994 Ears/Nose/Throat oral cavity/pharynx/larynx Overall: hypopharynx benign 01/09/2017 None Full Exam - General 1994 Ears/Nose/Throat oral cavity/pharynx/larynx Overall: no masses 01/09/2017 None Full Exam - General 1994 Respiratory auscultation Overall: breath sounds clear bilaterally 01/09/2017 None Full Exam - General 1994 Respiratory respiratory effort/rhythm Overall: no retractions 01/09/2017 None Full Exam - General 1994 Respiratory respiratory effort/rhythm Overall: normal rate 01/09/2017 None Full Exam - General 1994 Cardiovascular extremities Overall: no clubbing 01/09/2017 None Full Exam - General 1994 Cardiovascular auscultation of heart Overall: regular rate 01/09/2017 None Full Exam - General 1994 Cardiovascular auscultation of heart Overall: normal heart sounds 01/09/2017 None Full Exam - General 1994 Abdomen abdominal exam Overall: no tenderness 01/09/2017 None Full Exam - General 1994 Abdomen abdominal exam Overall: normal bowel sounds 01/09/2017 None Full Exam - General 1994 Musculoskeletal spine, ribs and pelvis Overall: spine benign 01/09/2017 None Full Exam - General 1994 Musculoskeletal spine, ribs and pelvis Overall: sacroiliac joint benign 01/09/2017 None Full Exam - General 1994 Musculoskeletal spine, ribs and pelvis Overall: good posture 01/09/2017 None Full Exam - General 1994 Musculoskeletal head and neck Overall: head atraumatic 01/09/2017 None Full Exam - General 1994 Musculoskeletal head and neck Overall: cervical spine benign 01/09/2017 None Full Exam - General 1994 Neurologic deep tendon reflexes Overall: deep tendon reflexes intact 01/09/2017 None Full Exam - General 1994 Neurologic cranial nerves Overall: crainial nerves 2 - 12 grossly intact 01/09/2017 None Full Exam - General 1994 Psychiatric orientation/consciousness Overall: oriented to person, place and time 01/09/2017 None Full Exam - General 1994 Psychiatric mood and affect Overall: normal mood and affect 01/09/2017 None Full Exam - General 1994 Constitutional general appearance Development: well developed 12/11/2016 None Full Exam - General 1994 Constitutional general appearance Development: appears stated age 1012/11/2016 None Full Exam - General 1994 Constitutional general appearance Hygiene/Attention to Grooming: good hygiene 12/11/2016 None Full Exam - General 1994 Eyes conjunctiva /eyelids Overall: conjunctiva clear 12/11/2016 None Full Exam - General 1994 Eyes conjunctiva /eyelids Overall: cornea clear 12/11/2016 None Full Exam - General 1994 Eyes conjunctiva /eyelids Overall: eyelids normal 12/11/2016 None Full Exam - General 1994 Eyes pupils and irises Overall: pupils equal, round, reactive to light and accomodation 12/11/2016 None Full Exam - General 1994 Ears/Nose/Throat otoscopic exam Overall: external auditory canals clear 12/11/2016 None Full Exam - General 1994 Ears/Nose/Throat otoscopic exam Overall: tympanic membranes clear 12/11/2016 None Full Exam - General 1994 Ears/Nose/Throat lips/teeth/gingiva Overall: benign lips 12/11/2016 None Full Exam - General 1994 Ears/Nose/Throat lips/teeth/gingiva Overall: normal dentition 12/11/2016 None Full Exam - General 1994 Ears/Nose/Throat oral cavity/pharynx/larynx Overall: oral mucosa clear 12/11/2016 None Full Exam - General 1994 Ears/Nose/Throat oral cavity/pharynx/larynx Overall: oropharyngeal mucosa clear 12/11/2016 None Full Exam - General 1994 Ears/Nose/Throat oral cavity/pharynx/larynx Overall: hypopharynx benign 12/11/2016 None Full Exam - General 1994 Ears/Nose/Throat oral cavity/pharynx/larynx Overall: no masses 12/11/2016 None Full Exam - General 1994 Respiratory auscultation Overall: breath sounds clear bilaterally 12/11/2016 None Full Exam - General 1994 Respiratory respiratory effort/rhythm Overall: no retractions 12/11/2016 None Full Exam - General 1994 Respiratory respiratory effort/rhythm Overall: normal rate 12/11/2016 None Full Exam - General 1994 Cardiovascular extremities Overall: no clubbing 12/11/2016 None Full Exam - General 1994 Cardiovascular auscultation of heart Overall: regular rate 12/11/2016 None Full Exam - General 1994 Cardiovascular auscultation of heart Overall: normal heart sounds 12/11/2016 None Full Exam - General 1994 Abdomen abdominal exam Overall: no tenderness 12/11/2016 None Full Exam - General 1994 Abdomen abdominal exam Overall: normal bowel sounds 12/11/2016 None Full Exam - General 1994 Musculoskeletal spine, ribs and pelvis Overall: spine benign 12/11/2016 None Full Exam - General 1994 Musculoskeletal spine, ribs and pelvis Overall: sacroiliac joint benign 12/11/2016 None Full Exam - General 1994 Musculoskeletal spine, ribs and pelvis Overall: good posture 12/11/2016 None Full Exam - General 1994 Musculoskeletal head and neck Overall: head atraumatic 12/11/2016 None Full Exam - General 1994 Musculoskeletal head and neck Overall: cervical spine benign 12/11/2016 None Full Exam - General 1994 Neurologic deep tendon reflexes Overall: deep tendon reflexes intact 12/11/2016 None Full Exam - General 1994 Neurologic cranial nerves Overall: crainial nerves 2 - 12 grossly intact 12/11/2016 None Full Exam - General 1994 Psychiatric orientation/consciousness Overall: oriented to person, place and time 12/11/2016 None Full Exam - General 1994 Psychiatric mood and affect Overall: normal mood and affect 12/11/2016 None Full Exam - ENT Constitutional general appearance Evidence of Distress: in no acute distress 11/29/2016 None Full Exam - ENT Ears/Nose/Throat otoscopic exam Overall: external auditory canals normal 11/29/2016 None Full Exam - ENT Ears/Nose/Throat otoscopic exam Overall: tympanic membranes normal 11/29/2016 None Full Exam - ENT Ears/Nose/Throat lips/ teeth/gingiva Overall: benign lips 11/29/2016 None Full Exam - ENT Ears/Nose/Throat oropharynx Overall: oral mucosa clear 11/29/2016 None Full Exam - ENT Ears/Nose/Throat oropharynx Posterior Pharynx: clear post nasal drainage 11/29/2016 None Full Exam - ENT Respiratory inspection Overall: normal rate 05/2016 None Full Exam - ENT Respiratory inspection Overall: no retractions 11/29/2016 None Full Exam - ENT Respiratory auscultation Overall: breath sounds clear bilaterally 11/29/2016 None Full Exam - ENT Respiratory auscultation Diffuse: diminished None Full Exam - ENT Cardiovascular auscultation of heart Overall: regular rate 11/29/2016 None Full Exam - ENT Cardiovascular auscultation of heart Overall: normal heart sounds 11/29/2016 None Full Exam - ENT Lymphatic palpation of lymph nodes Overall: posterior cervical chain benign 11/29/2016 None Full Exam - ENT Lymphatic palpation of lymph nodes Overall: anterior cervical chain benign 11/29/2016 None Full Exam - ENT Neurologic mood and affect Overall: normal mood 11/29/2016 None Full Exam - ENT Neurologic mood and affect Overall: normal affect 11/29/2016 None Full Exam - ENT Neurologic orientation Overall: oriented to person, place and time 11/29/2016 None Full Exam - General 1994 Constitutional general appearance Development: well developed 09/21/2016 None Full Exam - General 1994 Constitutional general appearance Development: appears stated age 0709/21/2016 None Full Exam - General 1994 Constitutional general appearance Hygiene/Attention to Grooming: good hygiene 09/21/2016 None Full Exam - General 1994 Eyes conjunctiva /eyelids Overall: conjunctiva clear 09/21/2016 None Full Exam - General 1994 Eyes conjunctiva /eyelids Overall: cornea clear 09/21/2016 None Full Exam - General 1994 Eyes conjunctiva /eyelids Overall: eyelids normal 09/21/2016 None Full Exam - General 1994 Eyes pupils and irises Overall: pupils equal, round, reactive to light and accomodation 09/21/2016 None Full Exam - General 1994 Ears/Nose/Throat otoscopic exam Overall: external auditory canals clear 09/21/2016 None Full Exam - General 1994 Ears/Nose/Throat otoscopic exam Overall: tympanic membranes clear 09/21/2016 None Full Exam - General 1994 Ears/Nose/Throat lips/teeth/gingiva Overall: benign lips 09/21/2016 None Full Exam - General 1994 Ears/Nose/Throat lips/teeth/gingiva Overall: normal dentition 09/21/2016 None Full Exam - General 1994 Ears/Nose/Throat oral cavity/pharynx/larynx Overall: oral mucosa clear 09/21/2016 None Full Exam - General 1995 Ears/Nose/Throat oral cavity/pharynx/larynx Overall: oropharyngeal mucosa clear 09/21/2016 None Full Exam - General 1994 Ears/Nose/Throat oral cavity/pharynx/larynx Overall: hypopharynx benign 09/21/2016 None Full Exam - General 1994 Ears/Nose/Throat oral cavity/pharynx/larynx Overall: no masses 09/21/2016 None Full Exam - General 1994 Respiratory auscultation Overall: breath sounds clear bilaterally 09/21/2016 None Full Exam - General 1994 Respiratory respiratory effort/rhythm Overall: no retractions 09/21/2016 None Full Exam - General 1994 Respiratory respiratory effort/rhythm Overall: normal rate 09/21/2016 None Full Exam - General 1994 Cardiovascular extremities Overall: no clubbing 09/21/2016 None Full Exam - General 1994 Cardiovascular auscultation of heart Overall: regular rate 09/21/2016 None Full Exam - General 1994 Cardiovascular auscultation of heart Overall: normal heart sounds 09/21/2016 None Full Exam - General 1994 Abdomen abdominal exam Overall: no tenderness 09/21/2016 None Full Exam - General 1994 Abdomen abdominal exam Overall: normal bowel sounds 09/21/2016 None Full Exam - General 1994 Musculoskeletal spine, ribs and pelvis Overall: spine benign 09/21/2016 None Full Exam - General 1994 Musculoskeletal spine, ribs and pelvis Overall: sacroiliac joint benign 09/21/2016 None Full Exam - General 1994 Musculoskeletal spine, ribs and pelvis Overall: good posture 09/21/2016 None Full Exam - General 1994 Musculoskeletal head and neck Overall: head atraumatic 09/21/2016 None Full Exam - General 1994 Musculoskeletal head and neck Overall: cervical spine benign 09/21/2016 None Full Exam - General 1994 Neurologic deep tendon reflexes Overall: deep tendon reflexes intact 09/21/2016 None Full Exam - General 1994 Neurologic cranial nerves Overall: crainial nerves 2 - 12 grossly intact 09/21/2016 None Full Exam - General 1994 Psychiatric orientation/consciousness Overall: oriented to person, place and time 09/21/2016 None Full Exam - General 1994 Psychiatric mood and affect Overall: normal mood and affect 09/21/2016 None Full Exam - General 1994 Constitutional general appearance Development: well developed 08/23/2016 None Full Exam - General 1994 Constitutional general appearance Development: appears stated age 0608/23/2016 None Full Exam - General 1994 Constitutional general appearance Hygiene/Attention to Grooming: good hygiene 08/23/2016 None Full Exam - General 1994 Eyes conjunctiva /eyelids Overall: conjunctiva clear 08/23/2016 None Full Exam - General 1994 Eyes conjunctiva /eyelids Overall: cornea clear 08/23/2016 None Full Exam - General 1994 Eyes conjunctiva /eyelids Overall: eyelids normal 08/23/2016 None Full Exam - General 1994 Eyes pupils and irises Overall: pupils equal, round, reactive to light and accomodation 08/23/2016 None Full Exam - General 1994 Ears/Nose/Throat otoscopic exam Overall: external auditory canals clear 08/23/2016 None Full Exam - General 1994 Ears/Nose/Throat otoscopic exam Overall: tympanic membranes clear 08/23/2016 None Full Exam - General 1994 Ears/Nose/Throat lips/teeth/gingiva Overall: benign lips 08/23/2016 None Full Exam - General 1994 Ears/Nose/Throat lips/teeth/gingiva Overall: normal dentition 08/23/2016 None Full Exam - General 1994 Ears/Nose/Throat oral cavity/pharynx/larynx Overall: oral mucosa clear 08/23/2016 None Full Exam - General 1994 Ears/Nose/Throat oral cavity/pharynx/larynx Overall: oropharyngeal mucosa clear 08/23/2016 None Full Exam - General 1994 Ears/Nose/Throat oral cavity/pharynx/larynx Overall: hypopharynx benign 08/23/2016 None Full Exam - General 1994 Ears/Nose/Throat oral cavity/pharynx/larynx Overall: no masses 08/23/2016 None Full Exam - General 1994 Respiratory auscultation Overall: breath sounds clear bilaterally 08/23/2016 None Full Exam - General 1994 Respiratory respiratory effort/rhythm Overall: no retractions 08/23/2016 None Full Exam - General 1994 Respiratory respiratory effort/rhythm Overall: normal rate 08/23/2016 None Full Exam - General 1994 Cardiovascular extremities Overall: no clubbing 08/23/2016 None Full Exam - General 1994 Cardiovascular auscultation of heart Overall: regular rate 08/23/2016 None Full Exam - General 1994 Cardiovascular auscultation of heart Overall: normal heart sounds 08/23/2016 None Full Exam - General 1994 Abdomen abdominal exam Overall: no tenderness 08/23/2016 None Full Exam - General 1994 Abdomen abdominal exam Overall: normal bowel sounds 08/23/2016 None Full Exam - General 1994 Musculoskeletal spine, ribs and pelvis Overall: spine benign 08/23/2016 None Full Exam - General 1994 Musculoskeletal spine, ribs and pelvis Overall: sacroiliac joint benign 08/23/2016 None Full Exam - General 1994 Musculoskeletal spine, ribs and pelvis Overall: good posture 08/23/2016 None Full Exam - General 1994 Musculoskeletal head and neck Overall: head atraumatic 08/23/2016 None Full Exam - General 1994 Musculoskeletal head and neck Overall: cervical spine benign 08/23/2016 None Full Exam - General 1994 Neurologic deep tendon reflexes Overall: deep tendon reflexes intact 08/23/2016 None Full Exam - General 1994 Neurologic cranial nerves Overall: crainial nerves 2 - 12 grossly intact 08/23/2016 None Full Exam - General 1994 Psychiatric orientation/consciousness Overall: oriented to person, place and time 08/23/2016 None Full Exam - General 1994 Psychiatric mood and affect Overall: normal mood and affect 08/23/2016 None Full Exam - General 1994 Constitutional general appearance Development: well developed 08/07/2016 None Full Exam - General 1994 Constitutional general appearance Development: appears stated age 0608/07/2016 None Full Exam - General 1994 Constitutional general appearance Hygiene/Attention to Grooming: good hygiene 08/07/2016 None Full Exam - General 1994 Eyes conjunctiva /eyelids Overall: conjunctiva clear 08/07/2016 None Full Exam - General 1994 Eyes conjunctiva /eyelids Overall: cornea clear 08/07/2016 None Full Exam - General 1994 Eyes conjunctiva /eyelids Overall: eyelids normal 08/07/2016 None Full Exam - General 1994 Eyes pupils and irises Overall: pupils equal, round, reactive to light and accomodation 08/07/2016 None Full Exam - General 1994 Ears/Nose/Throat otoscopic exam Overall: external auditory canals clear 08/07/2016 None Full Exam - General 1994 Ears/Nose/Throat otoscopic exam Overall: tympanic membranes clear 08/07/2016 None Full Exam - General 1994 Ears/Nose/Throat lips/teeth/gingiva Overall: benign lips 08/07/2016 None Full Exam - General 1994 Respiratory auscultation Overall: breath sounds clear bilaterally 08/07/2016 None Full Exam - General 1994 Respiratory respiratory effort/rhythm Overall: no retractions 08/07/2016 None Full Exam - General 1994 Respiratory respiratory effort/rhythm Overall: normal rate 08/07/2016 None Full Exam - General 1994 Cardiovascular extremities Overall: no clubbing 08/07/2016 None Full Exam - General 1994 Cardiovascular auscultation of heart Overall: regular rate 08/07/2016 None Full Exam - General 1994 Cardiovascular auscultation of heart Overall: normal heart sounds 08/07/2016 None Full Exam - General 1994 Abdomen abdominal exam Overall: no tenderness 08/07/2016 None Full Exam - General 1994 Abdomen abdominal exam Overall: normal bowel sounds 08/07/2016 None Full Exam - General 1994 Lymphatic neck nodes Overall: anterior cervical chain benign 08/07/2016 None Full Exam - General 1994 Lymphatic neck nodes Overall: posterior cervical chain benign 08/07/2016 None Full Exam - General 1994 Musculoskeletal spine, ribs and pelvis Overall: spine benign 08/07/2016 None Full Exam - General 1994 Musculoskeletal spine, ribs and pelvis Overall: sacroiliac joint benign 08/07/2016 None Full Exam - General 1994 Musculoskeletal spine, ribs and pelvis Overall: good posture 08/07/2016 None Full Exam - General 1994 Musculoskeletal head and neck Overall: head atraumatic 08/07/2016 None Full Exam - General 1994 Musculoskeletal head and neck Overall: cervical spine benign 08/07/2016 None Full Exam - General 1994 Integument inspection of skin Overall: few scattered moles, no gross abnormalities 08/07/2016 None Full Exam - General 1994 Neurologic deep tendon reflexes Overall: deep tendon reflexes intact 08/07/2016 None Full Exam - General 1994 Neurologic cranial nerves Overall: crainial nerves 2 - 12 grossly intact 08/07/2016 None Full Exam - General 1994 Psychiatric orientation/consciousness Overall: oriented to person, place and time 08/07/2016 None Full Exam - General 1994 Psychiatric mood and affect Overall: normal mood and affect 08/07/2016 None Full Exam - General 1994 Ears/Nose/Throat oral cavity/pharynx/larynx Oral mucosa: thrush 08/07/2016 None Full Exam - General 1994 Constitutional general appearance Development: well developed 06/27/2016 None Full Exam - General 1994 Constitutional general appearance Development: appears stated age 0506/27/2016 None Full Exam - General 1994 Constitutional general appearance Nourishment: thin 06/27/2016 None Full Exam - General 1994 Constitutional general appearance Hygiene/Attention to Grooming: good hygiene 06/27/2016 None Full Exam - General 1994 Constitutional general appearance Assistive Device: walker 06/27/2016 None Full Exam - General 1994 Eyes conjunctiva /eyelids Overall: conjunctiva clear 06/27/2016 None Full Exam - General 1994 Eyes conjunctiva /eyelids Overall: cornea clear 06/27/2016 None Full Exam - General 1994 Eyes conjunctiva /eyelids Overall: eyelids normal 06/27/2016 None Full Exam - General 1994 Eyes pupils and irises Overall: pupils equal, round, reactive to light and accomodation 06/27/2016 None Full Exam - General 1994 Ears/Nose/Throat otoscopic exam Overall: external auditory canals clear 06/27/2016 None Full Exam - General 1994 Ears/Nose/Throat otoscopic exam Overall: tympanic membranes clear 06/27/2016 None Full Exam - General 1994 Ears/Nose/Throat lips/teeth/gingiva Overall: benign lips 06/27/2016 None Full Exam - General 1994 Ears/Nose/Throat lips/teeth/gingiva Overall: normal dentition 06/27/2016 None Full Exam - General 1994 Ears/Nose/Throat oral cavity/pharynx/larynx Oral mucosa: dry 06/27/2016 None Full Exam - General 1994 Ears/Nose/Throat oral cavity/pharynx/larynx Oral mucosa: thrush 06/27/2016 --Improved Full Exam - General 1994 Respiratory auscultation Diffuse: diminished 06/27/2016 None Full Exam - General 1994 Respiratory respiratory effort/rhythm Overall: no retractions 06/27/2016 None Full Exam - General 1994 Respiratory respiratory effort/rhythm Overall: normal rate 06/27/2016 None Full Exam - General 1994 Cardiovascular extremities Overall: no clubbing 06/27/2016 None Full Exam - General 1994 Cardiovascular auscultation of heart Overall: regular rate 06/27/2016 None Full Exam - General 1994 Cardiovascular auscultation of heart Overall: normal heart sounds 06/27/2016 None Full Exam - General 1994 Abdomen abdominal exam Overall: no tenderness 06/27/2016 None Full Exam - General 1994 Abdomen abdominal exam Overall: normal bowel sounds 06/27/2016 None Full Exam - General 1994 Lymphatic neck nodes Overall: anterior cervical chain benign 06/27/2016 None Full Exam - General 1994 Lymphatic neck nodes Overall: posterior cervical chain benign 06/27/2016 None Full Exam - General 1994 Musculoskeletal spine, ribs and pelvis Overall: spine benign 06/27/2016 None Full Exam - General 1994 Musculoskeletal spine, ribs and pelvis Overall: sacroiliac joint benign 06/27/2016 None Full Exam - General 1994 Musculoskeletal spine, ribs and pelvis Overall: good posture 06/27/2016 None Full Exam - General 1994 Musculoskeletal head and neck Overall: head atraumatic 06/27/2016 None Full Exam - General 1994 Musculoskeletal head and neck Overall: cervical spine benign 06/27/2016 None Full Exam - General 1994 Integument inspection of skin Dermatitis: excoriation 06/27/2016 buttock --Improved Full Exam - General 1994 Neurologic deep tendon reflexes Overall: deep tendon reflexes intact 06/27/2016 None Full Exam - General 1994 Neurologic cranial nerves Overall: crainial nerves 2 - 12 grossly intact 06/27/2016 None Full Exam - General 1994 Psychiatric orientation/consciousness Overall: oriented to person, place and time 06/27/2016 None Full Exam - General 1994 Psychiatric mood and affect Overall: normal mood and affect 06/27/2016 None Full Exam - General 1994 Constitutional general appearance Development: well developed 06/13/2016 None Full Exam - General 1994 Constitutional general appearance Development: appears stated age 0406/13/2016 None Full Exam - General 1994 Constitutional general appearance Hygiene/Attention to Grooming: good hygiene 06/13/2016 None Full Exam - General 1994 Eyes conjunctiva /eyelids Overall: conjunctiva clear 06/13/2016 None Full Exam - General 1994 Eyes conjunctiva /eyelids Overall: cornea clear 06/13/2016 None Full Exam - General 1994 Eyes conjunctiva /eyelids Overall: eyelids normal 06/13/2016 None Full Exam - General 1994 Eyes pupils and irises Overall: pupils equal, round, reactive to light and accomodation 06/13/2016 None Full Exam - General 1994 Ears/Nose/Throat otoscopic exam Overall: external auditory canals clear 06/13/2016 None Full Exam - General 1994 Ears/Nose/Throat otoscopic exam Overall: tympanic membranes clear 06/13/2016 None Full Exam - General 1994 Ears/Nose/Throat lips/teeth/gingiva Overall: benign lips 06/13/2016 None Full Exam - General 1994 Ears/Nose/Throat lips/teeth/gingiva Overall: normal dentition 06/13/2016 None Full Exam - General 1994 Respiratory respiratory effort/rhythm Overall: no retractions 06/13/2016 None Full Exam - General 1994 Respiratory respiratory effort/rhythm Overall: normal rate 06/13/2016 None Full Exam - General 1994 Cardiovascular extremities Overall: no clubbing 06/13/2016 None Full Exam - General 1994 Cardiovascular auscultation of heart Overall: regular rate 06/13/2016 None Full Exam - General 1994 Cardiovascular auscultation of heart Overall: normal heart sounds 06/13/2016 None Full Exam - General 1994 Abdomen abdominal exam Overall: no tenderness 06/13/2016 None Full Exam - General 1994 Abdomen abdominal exam Overall: normal bowel sounds 06/13/2016 None Full Exam - General 1994 Lymphatic neck nodes Overall: anterior cervical chain benign 06/13/2016 None Full Exam - General 1994 Lymphatic neck nodes Overall: posterior cervical chain benign 06/13/2016 None Full Exam - General 1994 Musculoskeletal spine, ribs and pelvis Overall: spine benign 06/13/2016 None Full Exam - General 1994 Musculoskeletal spine, ribs and pelvis Overall: sacroiliac joint benign 06/13/2016 None Full Exam - General 1994 Musculoskeletal spine, ribs and pelvis Overall: good posture 06/13/2016 None Full Exam - General 1994 Musculoskeletal head and neck Overall: head atraumatic 06/13/2016 None Full Exam - General 1994 Musculoskeletal head and neck Overall: cervical spine benign 06/13/2016 None Full Exam - General 1994 Neurologic deep tendon reflexes Overall: deep tendon reflexes intact 06/13/2016 None Full Exam - General 1994 Neurologic cranial nerves Overall: crainial nerves 2 - 12 grossly intact 06/13/2016 None Full Exam - General 1994 Psychiatric orientation/consciousness Overall: oriented to person, place and time 06/13/2016 None Full Exam - General 1994 Psychiatric mood and affect Overall: normal mood and affect 06/13/2016 None Full Exam - General 1994 Respiratory auscultation Diffuse: diminished 06/13/2016 None Full Exam - General 1994 Ears/Nose/Throat oral cavity/pharynx/larynx Oral mucosa: thrush 06/13/2016 None Full Exam - General 1994 Ears/Nose/Throat oral cavity/pharynx/larynx Oral mucosa: dry 06/13/2016 None Full Exam - General 1994 Integument inspection of skin Dermatitis: excoriation 06/13/2016 buttock Full Exam - General 1994 Constitutional general appearance Nourishment: thin 06/13/2016 None Full Exam - General 1994 Constitutional general appearance Assistive Device: walker 06/13/2016 None Full Exam - General 1994 Constitutional general appearance Development: well developed 05/24/2016 None Full Exam - General 1994 Constitutional general appearance Development: appears stated age 0305/24/2016 None Full Exam - General 1994 Constitutional general appearance Hygiene/Attention to Grooming: good hygiene 05/24/2016 None Full Exam - General 1994 Eyes conjunctiva /eyelids Overall: conjunctiva clear 05/24/2016 None Full Exam - General 1994 Eyes conjunctiva /eyelids Overall: cornea clear 05/24/2016 None Full Exam - General 1994 Eyes conjunctiva /eyelids Overall: eyelids normal 05/24/2016 None Full Exam - General 1994 Eyes pupils and irises Overall: pupils equal, round, reactive to light and accomodation 05/24/2016 None Full Exam - General 1994 Ears/Nose/Throat otoscopic exam Overall: external auditory canals clear 05/24/2016 None Full Exam - General 1995 Ears/Nose/Throat otoscopic exam Overall: tympanic membranes clear 05/24/2016 None Full Exam - General 1994 Ears/Nose/Throat lips/teeth/gingiva Overall: benign lips 05/24/2016 None Full Exam - General 1994 Ears/Nose/Throat lips/teeth/gingiva Overall: normal dentition 05/24/2016 None Full Exam - General 1994 Ears/Nose/Throat oral cavity/pharynx/larynx Overall: oral mucosa clear 05/24/2016 None Full Exam - General 1994 Ears/Nose/Throat oral cavity/pharynx/larynx Overall: oropharyngeal mucosa clear 05/24/2016 None Full Exam - General 1994 Ears/Nose/Throat oral cavity/pharynx/larynx Overall: hypopharynx benign 05/24/2016 None Full Exam - General 1994 Ears/Nose/Throat oral cavity/pharynx/larynx Overall: no masses 05/24/2016 None Full Exam - General 1994 Respiratory auscultation Overall: breath sounds clear bilaterally 05/24/2016 None Full Exam - General 1994 Respiratory respiratory effort/rhythm Overall: no retractions 05/24/2016 None Full Exam - General 1994 Respiratory respiratory effort/rhythm Overall: normal rate 05/24/2016 None Full Exam - General 1994 Cardiovascular extremities Overall: no clubbing 05/24/2016 None Full Exam - General 1994 Cardiovascular auscultation of heart Overall: regular rate 05/24/2016 None Full Exam - General 1994 Cardiovascular auscultation of heart Overall: normal heart sounds 05/24/2016 None Full Exam - General 1994 Abdomen abdominal exam Overall: no tenderness 05/24/2016 None Full Exam - General 1994 Abdomen abdominal exam Overall: normal bowel sounds 05/24/2016 None Full Exam - General 1994 Lymphatic neck nodes Overall: anterior cervical chain benign 05/24/2016 None Full Exam - General 1994 Lymphatic neck nodes Overall: posterior cervical chain benign 05/24/2016 None Full Exam - General 1994 Musculoskeletal spine, ribs and pelvis Overall: spine benign 05/24/2016 None Full Exam - General 1994 Musculoskeletal spine, ribs and pelvis Overall: sacroiliac joint benign 05/24/2016 None Full Exam - General 1994 Musculoskeletal spine, ribs and pelvis Overall: good posture 05/24/2016 None Full Exam - General 1994 Musculoskeletal head and neck Overall: head atraumatic 05/24/2016 None Full Exam - General 1994 Musculoskeletal head and neck Overall: cervical spine benign 05/24/2016 None Full Exam - General 1994 Integument inspection of skin Overall: few scattered moles, no gross abnormalities 05/24/2016 None Full Exam - General 1994 Neurologic deep tendon reflexes Overall: deep tendon reflexes intact 05/24/2016 None Full Exam - General 1994 Neurologic cranial nerves Overall: crainial nerves 2 - 12 grossly intact 05/24/2016 None Full Exam - General 1994 Psychiatric orientation/consciousness Overall: oriented to person, place and time 05/24/2016 None Full Exam - General 1994 Psychiatric mood and affect Overall: normal mood and affect 05/24/2016 None Full Exam - General 1994 Constitutional general appearance Hygiene/Attention to Grooming: good hygiene 04/26/2016 None Full Exam - General 1994 Eyes conjunctiva /eyelids Overall: conjunctiva clear 04/26/2016 None Full Exam - General 1994 Eyes conjunctiva /eyelids Overall: eyelids normal 04/26/2016 None Full Exam - General 1994 Eyes pupils and irises Overall: pupils equal, round, reactive to light and accomodation 04/26/2016 None Full Exam - General 1994 Ears/Nose/Throat otoscopic exam Overall: external auditory canals clear 04/26/2016 None Full Exam - General 1994 Ears/Nose/Throat otoscopic exam Overall: tympanic membranes clear 04/26/2016 None Full Exam - General 1994 Ears/Nose/Throat lips/teeth/gingiva Overall: benign lips 04/26/2016 None Full Exam - General 1994 Ears/Nose/Throat oral cavity/pharynx/larynx Overall: oral mucosa clear 04/26/2016 None Full Exam - General 1994 Ears/Nose/Throat oral cavity/pharynx/larynx Overall: oropharyngeal mucosa clear 04/26/2016 None Full Exam - General 1994 Ears/Nose/Throat oral cavity/pharynx/larynx Overall: no masses 04/26/2016 None Full Exam - General 1994 Respiratory respiratory effort/rhythm Overall: no retractions 04/26/2016 None Full Exam - General 1994 Respiratory respiratory effort/rhythm Overall: normal rate 04/26/2016 None Full Exam - General 1994 Cardiovascular extremities Overall: no clubbing 04/26/2016 None Full Exam - General 1994 Cardiovascular auscultation of heart Overall: regular rate 04/26/2016 None Full Exam - General 1994 Cardiovascular auscultation of heart Overall: normal heart sounds 04/26/2016 None Full Exam - General 1994 Lymphatic neck nodes Overall: anterior cervical chain benign 04/26/2016 None Full Exam - General 1994 Lymphatic neck nodes Overall: posterior cervical chain benign 04/26/2016 None Full Exam - General 1994 Musculoskeletal spine, ribs and pelvis Overall: good posture 04/26/2016 None Full Exam - General 1994 Musculoskeletal head and neck Overall: head atraumatic 04/26/2016 None Full Exam - General 1994 Neurologic cranial nerves Overall: crainial nerves 2 - 12 grossly intact 04/26/2016 None Full Exam - General 1994 Psychiatric orientation/consciousness Overall: oriented to person, place and time 04/26/2016 None Full Exam - General 1994 Psychiatric mood and affect Overall: normal mood and affect 04/26/2016 None Full Exam - General 1994 Constitutional general appearance Overall: well developed 04/26/2016 None Full Exam - General 1994 Constitutional general appearance Overall: in no acute distress 04/26/2016 None Full Exam - General 1994 Constitutional general appearance Overall: well nourished 04/26/2016 None Full Exam - General 1994 Respiratory auscultation Diffuse: expiratory wheezes 04/26/2016 None Full Exam - General 1994 Constitutional general appearance Development: well developed 02/17/2016 None Full Exam - General 1994 Constitutional general appearance Development: appears stated age 1202/17/2016 None Full Exam - General 1994 Constitutional general appearance Hygiene/Attention to Grooming: good hygiene 02/17/2016 None Full Exam - General 1994 Eyes conjunctiva /eyelids Overall: conjunctiva clear 02/17/2016 None Full Exam - General 1994 Eyes conjunctiva /eyelids Overall: cornea clear 02/17/2016 None Full Exam - General 1994 Eyes conjunctiva /eyelids Overall: eyelids normal 02/17/2016 None Full Exam - General 1994 Eyes pupils and irises Overall: pupils equal, round, reactive to light and accomodation 02/17/2016 None Full Exam - General 1994 Ears/Nose/Throat otoscopic exam Overall: external auditory canals clear 02/17/2016 None Full Exam - General 1994 Ears/Nose/Throat otoscopic exam Overall: tympanic membranes clear 02/17/2016 None Full Exam - General 1994 Ears/Nose/Throat lips/teeth/gingiva Overall: benign lips 02/17/2016 None Full Exam - General 1994 Ears/Nose/Throat lips/teeth/gingiva Overall: normal dentition 02/17/2016 None Full Exam - General 1994 Ears/Nose/Throat oral cavity/pharynx/larynx Overall: oral mucosa clear 02/17/2016 None Full Exam - General 1994 Ears/Nose/Throat oral cavity/pharynx/larynx Overall: oropharyngeal mucosa clear 02/17/2016 None Full Exam - General 1994 Ears/Nose/Throat oral cavity/pharynx/larynx Overall: hypopharynx benign 02/17/2016 None Full Exam - General 1994 Ears/Nose/Throat oral cavity/pharynx/larynx Overall: no masses 02/17/2016 None Full Exam - General 1994 Respiratory auscultation Overall: breath sounds clear bilaterally 02/17/2016 None Full Exam - General 1994 Respiratory respiratory effort/rhythm Overall: no retractions 02/17/2016 None Full Exam - General 1994 Respiratory respiratory effort/rhythm Overall: normal rate 02/17/2016 None Full Exam - General 1994 Cardiovascular extremities Overall: no clubbing 02/17/2016 None Full Exam - General 1994 Cardiovascular auscultation of heart Overall: regular rate 02/17/2016 None Full Exam - General 1994 Cardiovascular auscultation of heart Overall: normal heart sounds 02/17/2016 None Full Exam - General 1994 Abdomen abdominal exam Overall: no tenderness 02/17/2016 None Full Exam - General 1994 Abdomen abdominal exam Overall: normal bowel sounds 02/17/2016 None Full Exam - General 1994 Lymphatic neck nodes Overall: anterior cervical chain benign 02/17/2016 None Full Exam - General 1994 Lymphatic neck nodes Overall: posterior cervical chain benign 02/17/2016 None Full Exam - General 1994 Musculoskeletal spine, ribs and pelvis Overall: spine benign 02/17/2016 None Full Exam - General 1994 Musculoskeletal spine, ribs and pelvis Overall: sacroiliac joint benign 02/17/2016 None Full Exam - General 1994 Musculoskeletal spine, ribs and pelvis Overall: good posture 02/17/2016 None Full Exam - General 1994 Musculoskeletal head and neck Overall: head atraumatic 02/17/2016 None Full Exam - General 1994 Musculoskeletal head and neck Overall: cervical spine benign 02/17/2016 None Full Exam - General 1994 Integument inspection of skin Overall: few scattered moles, no gross abnormalities 02/17/2016 None Full Exam - General 1994 Neurologic deep tendon reflexes Overall: deep tendon reflexes intact 02/17/2016 None Full Exam - General 1994 Neurologic cranial nerves Overall: crainial nerves 2 - 12 grossly intact 02/17/2016 None Full Exam - General 1994 Psychiatric orientation/consciousness Overall: oriented to person, place and time 02/17/2016 None Full Exam - General 1994 Psychiatric mood and affect Overall: normal mood and affect 02/17/2016 None Procedures Procedure Codes Date URINALYSIS NONAUTO W/O SCOPE CPT-4: 01535 12/11/2016 THER/PROPH/DIAG INJ SC/IM CPT-4: 67012 04/26/2016 TRIAMCINOLONE ACET INJ NOS CPT-4: J3301 04/26/2016 Vital Signs Date Vital 11/20/2017 Blood Pressure 1: 146/58 Code : 8480-6 BMI: 19.1 Code : 83064-5 Heart Rate 1 : 91 bpm Height: 5' SpO2: 92% Weight: 98 lbs 11/08/2017 Blood Pressure 1: 130/68 Code : 8480-6 BMI: 18.7 Code : 66641-4 Heart Rate 1 : 114 bpm Height: 5' SpO2: 94% Weight: 96 lbs 07/26/2017 Blood Pressure 1: 132/66 Code : 8480-6 BMI: 19.9 Code : 92477-2 Heart Rate 1 : 100 bpm Height: 5' SpO2: 96% Weight: 102 lbs 04/12/2017 Blood Pressure 1: 120/68 Code : 8480-6 BMI: 20.3 Code : 36089-7 Heart Rate 1 : 104 bpm Height: 5' Respiratory Rate: 18 bpm SpO2: 94% Weight: 104 lbs 01/09/2017 Blood Pressure 1: 138/80 Code : 8480-6 BMI: 20.3 Code : 20565-4 Heart Rate 1 : 96 bpm Height: 5' SpO2: 94% Temperature: 36.8 (C) / 98.3 (F) Weight: 104 lbs 12/11/2016 Blood Pressure 1: 132/72 Code : 8480-6 BMI: 19.4 Code : 40231-0 Heart Rate 1 : 106 bpm Height: 5' SpO2: 98% Weight: 99 lbs 8 oz 11/29/2016 Blood Pressure 1: 120/64 Code : 8480-6 BMI: 19.1 Code : 21309-8 Heart Rate 1 : 96 bpm Height: 5' SpO2: 97% Weight: 98 lbs 09/21/2016 Blood Pressure 1: 136/82 Code : 8480-6 BMI: 18.0 Code : 94879-3 Heart Rate 1 : 88 bpm Height: 5' SpO2: 95% Weight: 92 lbs 08/23/2016 Blood Pressure 1: 130/80 Code : 8480-6 BMI: 17.2 Code : 72945-4 Heart Rate 1 : 99 bpm Height: 5' SpO2: 97% Weight: 88 lbs 08/07/2016 Blood Pressure 1: 140/72 Code : 8480-6 BMI: 17.4 Code : 78146-2 Heart Rate 1 : 85 bpm Height: 5' SpO2: 94% Weight: 89 lbs 06/27/2016 Blood Pressure 1: 124/72 Code : 8480-6 BMI: 17.2 Code : 52541-6 Heart Rate 1 : 80 bpm Height: 5' SpO2: 92% Weight: 88 lbs 06/13/2016 Blood Pressure 1: 130/62 Code : 8480-6 BMI: 17.8 Code : 53708-8 Heart Rate 1 : 79 bpm Height: 5' SpO2: 92% Weight: 91 lbs 05/24/2016 Blood Pressure 1: 118/62 Code : 8480-6 BMI: 17.8 Code : 32254-2 Heart Rate 1 : 101 bpm Height: 5' SpO2: 96% Temperature: 37.1 (C) / 98.7 (F) Weight: 91 lbs 04/26/2016 Blood Pressure 1: 126/78 Code : 8480-6 BMI: 18.4 Code : 16001-6 Heart Rate 1 : 102 bpm Height: 5' SpO2: 91% Weight: 94 lbs 02/17/2016 Blood Pressure 1: 140/76 Code : 8480-6 BMI: 19.3 Code : 91516-9 Heart Rate 1 : 95 bpm Height: 5' SpO2: 93% Weight: 99 lbs Functional Status No Functional Status data History of Present Illness Symptom Name Status Result Effective Date Notes finger and hand pain Limitation on Activities is incapacitating 11/20/2017 None finger and hand pain Pertinent Findings pain with movement 11/20/2017 None finger and hand pain Pertinent Findings redness 11/20/2017 None finger and hand pain Pertinent Findings stiffness 11/20/2017 None finger and hand pain Pertinent Findings swelling 11/20/2017 None finger and hand pain Pertinent Findings warmth 11/20/2017 None hypertension Quality primary hypertension 11/08/2017 None hypertension Onset and Resolution ongoing 11/08/2017 None hypertension Onset of Symptom during adulthood 11/08/2017 None hypertension Blood Pressure Values patient checking blood pressure at home - did not bring in readings 11/08/2017 -Checked at [facility] hypertension Alleviating Factors medication 11/08/2017 None hypertension Pertinent Findings Denies dizziness 11/08/2017 None hypertension Pertinent Findings dyspnea 11/08/2017 -wears oxygen hypertension Pertinent Findings Denies edema 11/08/2017 None insomnia Quality disrupted sleep 11/08/2017 None insomnia Onset and Resolution ongoing 11/08/2017 None finger and hand pain Limitation on Activities is incapacitating 11/08/2017 None finger and hand pain Onset of Symptom 4 days ago 11/08/2017 None finger and hand pain Pertinent Findings pain with movement 11/08/2017 None finger and hand pain Pertinent Findings redness 11/08/2017 None finger and hand pain Pertinent Findings stiffness 11/08/2017 None finger and hand pain Pertinent Findings warmth 11/08/2017 None finger and hand pain Pertinent Findings swelling 11/08/2017 None hypertension Quality primary hypertension 07/26/2017 None hypertension Onset and Resolution ongoing 07/26/2017 None hypertension Onset of Symptom during adulthood 07/26/2017 None hypertension Blood Pressure Values patient checking blood pressure at home - did not bring in readings 07/26/2017 -Checked at [facility] hypertension Alleviating Factors medication 07/26/2017 None hypertension Pertinent Findings Denies dizziness 07/26/2017 None hypertension Pertinent Findings dyspnea 07/26/2017 -wears oxygen hypertension Pertinent Findings Denies edema 07/26/2017 None insomnia Quality disrupted sleep 07/26/2017 None insomnia Onset and Resolution ongoing 07/26/2017 None hypertension Quality primary hypertension 04/12/2017 None hypertension Onset and Resolution ongoing 04/12/2017 None hypertension Onset of Symptom during adulthood 04/12/2017 None hypertension Blood Pressure Values patient checking blood pressure at home - did not bring in readings 04/12/2017 -Checked at [facility] hypertension Alleviating Factors medication 04/12/2017 None hypertension Pertinent Findings Denies dizziness 04/12/2017 None hypertension Pertinent Findings dyspnea 04/12/2017 -wears oxygen hypertension Pertinent Findings Denies edema 04/12/2017 None insomnia Quality disrupted sleep 04/12/2017 None insomnia Onset and Resolution ongoing 04/12/2017 None hypertension Quality primary hypertension 01/09/2017 None hypertension Onset and Resolution ongoing 01/09/2017 None hypertension Onset of Symptom during adulthood 01/09/2017 None hypertension Blood Pressure Values patient checking blood pressure at home - did not bring in readings 01/09/2017 -Checked at [facility] hypertension Alleviating Factors medication 01/09/2017 None hypertension Pertinent Findings Denies dizziness 01/09/2017 None hypertension Pertinent Findings dyspnea 01/09/2017 -wears oxygen hypertension Pertinent Findings Denies edema 01/09/2017 None dysuria Quality acute 01/09/2017 None dysuria Quality burning 01/09/2017 None dysuria Onset and Resolution sudden in onset 01/09/2017 None dysuria Onset of Symptom 1 weeks ago 01/09/2017 None insomnia Quality disrupted sleep 01/09/2017 None insomnia Onset and Resolution ongoing 01/09/2017 None hypertension Quality primary hypertension 12/11/2016 None hypertension Onset and Resolution ongoing 12/11/2016 None hypertension Onset of Symptom during adulthood 12/11/2016 None hypertension Blood Pressure Values patient checking blood pressure at home - did not bring in readings 12/11/2016 -Checked at [facility] hypertension Alleviating Factors medication 12/11/2016 None hypertension Pertinent Findings Denies dizziness 12/11/2016 None hypertension Pertinent Findings dyspnea 12/11/2016 -wears oxygen hypertension Pertinent Findings Denies edema 12/11/2016 None dysuria Quality acute 12/11/2016 None dysuria Quality burning 12/11/2016 None dysuria Onset and Resolution sudden in onset 12/11/2016 None dysuria Onset of Symptom 1 weeks ago 12/11/2016 None insomnia Quality disrupted sleep 12/11/2016 None insomnia Onset and Resolution ongoing 12/11/2016 None earache Location both ears 11/29/2016 None cough Location in the lung 11/29/2016 None cough Quality constant 11/29/2016 None cough Quality productive 11/29/2016 None cough Onset and Resolution sudden in onset 11/29/2016 None hypertension Quality primary hypertension 09/21/2016 None hypertension Onset and Resolution ongoing 09/21/2016 None hypertension Onset of Symptom during adulthood 09/21/2016 None hypertension Blood Pressure Values patient checking blood pressure at home - did not bring in readings 09/21/2016 -Checked at [facility] hypertension Alleviating Factors medication 09/21/2016 None hypertension Pertinent Findings dizziness 09/21/2016 "some" hypertension Pertinent Findings dyspnea 09/21/2016 -wears oxygen hypertension Pertinent Findings Denies edema 09/21/2016 None oral pain Location on the mobile tongue 09/21/2016 None oral pain Onset and Resolution ongoing 09/21/2016 None oral pain Limitation on Activities limits oral intake 09/21/2016 None oral pain Frequency of Episodes daily 09/21/2016 None oral pain Pertinent Findings pain with oral intake 09/21/2016 None oral pain Pertinent Findings poor feeding 09/21/2016 None hypertension Quality primary hypertension 08/23/2016 None hypertension Onset and Resolution ongoing 08/23/2016 None hypertension Onset of Symptom during adulthood 08/23/2016 None hypertension Blood Pressure Values patient checking blood pressure at home - did not bring in readings 08/23/2016 -Checked at [facility] hypertension Alleviating Factors medication 08/23/2016 None hypertension Pertinent Findings dizziness 08/23/2016 "some" hypertension Pertinent Findings dyspnea 08/23/2016 -wears oxygen hypertension Pertinent Findings Denies edema 08/23/2016 None oral pain Location on the mobile tongue 08/23/2016 None oral pain Onset and Resolution ongoing 08/23/2016 None oral pain Limitation on Activities limits oral intake 08/23/2016 None oral pain Frequency of Episodes daily 08/23/2016 None oral pain Pertinent Findings pain with oral intake 08/23/2016 None oral pain Pertinent Findings poor feeding 08/23/2016 None skin lesion Quality mobile 08/23/2016 None skin lesion Onset and Resolution ongoing 08/23/2016 None skin lesion Onset of Symptom 2-3 weeks ago 08/23/2016 None skin lesion Pertinent Findings Denies fever 08/23/2016 None hypertension Onset and Resolution ongoing 08/07/2016 None hypertension Onset of Symptom during adulthood 08/07/2016 None hypertension Alleviating Factors medication 08/07/2016 None hypertension Pertinent Findings dyspnea 08/07/2016 -wears oxygen hypertension Pertinent Findings Denies edema 08/07/2016 None hypertension Quality primary hypertension 08/07/2016 None hypertension Blood Pressure Values patient checking blood pressure at home - did not bring in readings 08/07/2016 -Checked at [facility] hypertension Pertinent Findings dizziness 08/07/2016 "some" nausea Onset and Resolution ongoing 08/07/2016 None nausea Onset of Symptom 3-4 weeks ago 08/07/2016 None nausea Frequency of Episodes daily 08/07/2016 None oral pain Location on the mobile tongue 08/07/2016 None oral pain Onset and Resolution ongoing 08/07/2016 None oral pain Limitation on Activities limits oral intake 08/07/2016 None oral pain Frequency of Episodes daily 08/07/2016 None oral pain Pertinent Findings pain with oral intake 08/07/2016 None oral pain Pertinent Findings poor feeding 08/07/2016 None hemorrhoids Quality constant 06/27/2016 None hemorrhoids Onset and Resolution sudden in onset 06/27/2016 None hemorrhoids Onset of Symptom 2 weeks ago 06/27/2016 None diarrhea Quality constant 06/27/2016 None diarrhea Quality loose 06/27/2016 None diarrhea Onset and Resolution sudden in onset 06/27/2016 None diarrhea Onset of Symptom 2 weeks ago 06/27/2016 None sores in the mouth Pertinent Findings crusting 06/27/2016 None hemorrhoids Quality constant 06/13/2016 None hemorrhoids Onset and Resolution sudden in onset 06/13/2016 None hemorrhoids Onset of Symptom 2 weeks ago 06/13/2016 None diarrhea Quality constant 06/13/2016 None diarrhea Quality loose 06/13/2016 None diarrhea Onset and Resolution sudden in onset 06/13/2016 None diarrhea Onset of Symptom 2 weeks ago 06/13/2016 None hypertension Onset and Resolution ongoing 05/24/2016 None hypertension Onset of Symptom during adulthood 05/24/2016 None hypertension Alleviating Factors medication 05/24/2016 None hypertension Pertinent Findings dyspnea 05/24/2016 -wears oxygen hypertension Pertinent Findings Denies edema 05/24/2016 None muscle weakness Location diffusely 05/24/2016 None muscle weakness Quality upper extremities 05/24/2016 None muscle weakness Quality lower extremities 05/24/2016 None muscle weakness Onset and Resolution gradual in onset 05/24/2016 None muscle weakness Onset and Resolution ongoing 05/24/2016 None cough Quality dry None cough Quality intermittent 05/24/2016 None cough Onset and Resolution ongoing 05/24/2016 None cough Quality acute None cough Onset of Symptom 4+ weeks ago 05/24/2016 None cough Pertinent Findings fever 05/24/2016 None cough Pertinent Findings Denies sputum production 05/24/2016 None hearing loss Quality acute 05/24/2016 None hearing loss Location in both ears 05/24/2016 None hearing loss Pertinent Findings cough 05/24/2016 None hearing loss Pertinent Findings fever 05/24/2016 None cough Location in the lung 04/26/2016 None cough Quality constant 04/26/2016 None cough Quality foul-smelling sputum 04/26/2016 None cough Onset and Resolution sudden in onset 04/26/2016 None sinus congestion Location on both sides 04/26/2016 None sinus congestion Quality fullness 04/26/2016 None sinus congestion Quality pressure 04/26/2016 None chest congestion Quality constant 04/26/2016 None chest congestion Onset and Resolution sudden in onset 04/26/2016 None headache Quality acute 02/17/2016 None headache Onset and Resolution ongoing 02/17/2016 None headache Quality intermittent 02/17/2016 None headache Frequency of Episodes daily 02/17/2016 None earache Location both ears 02/17/2016 None earache Quality acute 02/17/2016 None earache Onset and Resolution ongoing 02/17/2016 None muscle weakness Location diffusely 02/17/2016 None muscle weakness Quality upper extremities 02/17/2016 None muscle weakness Quality lower extremities 02/17/2016 None muscle weakness Onset and Resolution gradual in onset 02/17/2016 None muscle weakness Onset and Resolution ongoing 02/17/2016 None hypertension Onset and Resolution ongoing 02/17/2016 None hypertension Onset of Symptom during adulthood 02/17/2016 None hypertension Alleviating Factors medication 02/17/2016 None hypertension Pertinent Findings edema 02/17/2016 None hypertension Pertinent Findings dyspnea 02/17/2016 None Advance Directives Advance Directives Present Encounters Encounter Performer Location Codes Date EST. PATIENT, LEVEL III Diagnosis: Pain in right hand[ICD10: M79.641] Diagnosis: Pain in joints of right hand[ICD10: M25.541] [facility] CPT-[facility]: 07579 11/20/2017 ([id number] 40523 EST. PATIENT, LEVEL III Diagnosis: Pain in right hand[ICD10: M79.641] Diagnosis: Pain in joints of right hand[ICD10: M25.541] [facility] CPT-4: 60023 11/08/2017 ([id number]) 84383 EST. PATIENT, LEVEL IV Diagnosis: Essential (primary) hypertension[ICD10: I10] Diagnosis: Other emphysema[ICD10: J43.8] Diagnosis: Slow transit constipation[ICD10: K59.01] [facility] CPT-4: 13860 07/26/2017 ([id number]) 33301 EST. PATIENT, LEVEL IV Diagnosis: Essential (primary) hypertension[ICD10: I10] Diagnosis: Other emphysema[ICD10: J43.8] Diagnosis: Cervicalgia[ICD10: M54.2] Diagnosis: Pain in thoracic spine[ICD10: M54.6] Desiree Sagatsume MD, [facility] CPT-4: 53190 04/12/2017 ([id number]) 30526 EST. PATIENT, LEVEL III Diagnosis: Essential (primary) hypertension[ICD10: I10] Diagnosis: Muscle weakness (generalized)[ICD10: M62.81] Diagnosis: Dependence on supplemental oxygen[ICD10: Z99.81] Desiree Sagastume MD, [facility] CPT-4: 85080 01/09/2017 ([id number]) 48393 EST. PATIENT, LEVEL IV Diagnosis: Essential (primary) hypertension[ICD10: I10] Diagnosis: Dysuria[ICD10: R30.0] Diagnosis: Underweight[ICD10: R63.6] Diagnosis: Urinary tract infection, site not specified[ICD10: N39.0] Diagnosis: Other insomnia[ICD10: G47.09] Desiree Sagastume MD, [facility] CPT- 4: 36064 12/11/2016 [id number] EST. PATIENT, LEVEL III Diagnosis: Other allergic rhinitis[ICD10: J30.89] Chely Sagastume MD, [facility] CPT-4: 35933 11/29/2016 ([id number]) 48685 EST. PATIENT, LEVEL IV Diagnosis: Essential (primary) hypertension[ICD10: I10] Diagnosis: Chronic obstructive pulmonary disease with (acute) exacerbation[ICD10 : J44.1] Diagnosis: Anemia in other chronic diseases classified elsewhere[ICD10: D63.8] Desiree Sagastume MD, [facility] CPT-4: 48087 09/21/2016 ([id number]) 38119 EST. PATIENT, LEVEL IV Diagnosis: Essential (primary) hypertension[ICD10: I10] Diagnosis: Candidal stomatitis[ICD10: B37.0] Diagnosis: Abnormal weight loss[ICD10: R63.4] Desiree Sagastume MD, [facility] CPT-4: 94876 08/23/2016 ([id number]) 42938 EST. PATIENT, LEVEL IV Diagnosis: Candidal stomatitis[ICD10: B37.0] Diagnosis: Essential (primary) hypertension[ICD10: I10] Diagnosis: Chronic obstructive pulmonary disease with acute lower respiratory infection[ICD10: J44.0] Diagnosis: Muscle weakness (generalized)[ICD10: M62.81] Desiree Sagastume MD, [facility] CPT-4: 51785 08/07/2016 ([id number]) 62026 EST. PATIENT, LEVEL IV Diagnosis: Essential (primary) hypertension[ICD10: I10] Diagnosis: Candidal stomatitis[ICD10: B37.0] Diagnosis: Abnormal weight loss[ICD10: R63.4] Jammie Sagastume MD, [facility] CPT-4: 43349 06/27/2016 ([id number]) 44791 EST. PATIENT, LEVEL IV Diagnosis: Candidal stomatitis[ICD10: B37.0] Diagnosis: Residual hemorrhoidal skin tags[ICD10: K64.4] Diagnosis: Diarrhea, unspecified[ICD10: R19.7] Jammie Sagastume MD, [facility] CPT-4: 83891 06/13/2016 ([id number]) 05589 EST. PATIENT, LEVEL IV Diagnosis: Essential (primary) hypertension[ICD10: I10] Diagnosis: Muscle weakness (generalized)[ICD10: M62.81] Diagnosis: Chronic obstructive pulmonary disease with (acute) exacerbation[ICD10 : J44.1] Desiree Sagastume MD, [facility] CPT-4: 74121 2016 35285 EST. PATIENT, LEVEL III Diagnosis: Chronic obstructive pulmonary disease with acute lower respiratory infection[ICD10: J44.0] Chely Sagastume MD, [facility] CPT-4: 31835 04/26/2016 ([id number]) OFFICE VISIT, NEW - LEVEL 4 Diagnosis: Essential (primary) hypertension[ICD10: I10] Diagnosis: Muscle weakness (generalized)[ICD10: M62.81] Diagnosis: Otalgia, bilateral[ICD10: H92.03] Desiree Sagastume MD, [facility] CPT-4: 18773 02/17/2016 Plan of Care Planned Activity Notes Codes Status Date Appointment: [phone] [place] (15 min) Moderate 01/10/2018 Visit Plan: Hand pain - negative hand x-ray and uric acid WNL - will refill keflex and ASA and if symptoms do not improve will order MRI to rule out fracture and osteomyelitis - They are to call if the symptoms do not improve. 11/20/2017 Appointment: Chely Garcia WPtel: [facility]5 [facility] [place] (15 min) Moderate 11/20/2017 Patient Education: Patient Medication Summary Completed 11/20/2017 Visit Plan: Hand pain - xray of hand obtained - no evidence of fracture - labs were negative for gout - rx for keflex and antiinflammtory called to the half-way for improved comfort of her hand. They are to call if the symptoms do not improve. 11/08/2017 Appointment: Desiree Sagastume WPtel: [facility]5 [facility] [place] (15 min) Moderate 11/08/2017 Patient Education: Patient Medication Summary Completed 11/08/2017 Appointment: Desiree Sagastume WPtel: [facility] [place] (15 min) Moderate 10/25/2017 Appointment: Desiree Sagastume WPtel: [facility] [place] (15 min) Moderate 10/17/2017 Appointment: Desiree Sagastume WPtel: [address] [place], [place] [address] [place] (15 min) Moderate 10/09/2017 Visit Plan: Hypertension - well controlled - continue with current medications, continue with no added salt diet. Pt has been encouraged to exercise daily. The pt has been advised to call the office if there are any acute concerns about change in blood pressure readings at home. COPD - stable symptoms - continue with oxygen as previously directed. Slow transit constipation - rx for linzess sent to pharmacy. 07/26/2017 Appointment: Desiree Sagastume WPtel: [facility]2 [facility] [place] (15 min) Moderate 07/26/2017 Patient Education: Patient Medication Summary Completed 07/26/2017 Appointment: Desiree Sagastume WPtel: [facility]5 [facility] [place] (15 min) Moderate 07/10/2017 Visit Plan: Hypertension - well controlled - continue with current medications, continue with no added salt diet. Pt has been encouraged to exercise daily. The pt has been advised to call the office if there are any acute concerns about change in blood pressure readings at home. Emphysema - stable symptoms - continue with oxygen as previously directed. Cervicalgia, upper back pain - and Muscle weakness - start physical therapy. 04/12/2017 Visit Plan: Hypertension - well controlled - continue with current medications, continue with no added salt diet. Pt has been encouraged to exercise daily. The pt has been advised to call the office if there are any acute concerns about change in blood pressure readings at home. Emphysema - stable symptoms - continue with oxygen as previously directed. - pt qualifies for portable oxygen - the pt needs a portable oxygen concentrator. Cervicalgia, upper back pain - and Muscle weakness - start physical therapy. 04/12/2017 Appointment: Desiree Sagastume WPtel: [facility]5 [facility] [place] (15 min) Moderate 04/12/2017 Patient Education: Patient Medication Summary Completed 04/12/2017 Visit Plan: Hypertension - well controlled - continue with current medications, continue with no added salt diet. Pt has been encouraged to exercise daily. The pt has been advised to call the office if there are any acute concerns about change in blood pressure readings at home. COPD - stable symptoms - continue with oxygen as previously directed. Muscle weakness - monitor symptoms. 01/09/2017 Appointment: Desiree Sagastume WPtel: [facility]5 [facility] [place] (15 min) Moderate 01/09/2017 Patient Education: Patient Medication Summary Completed 01/09/2017 Appointment: Desiree Sagastume WPtel: [phone] [facility] [place] (15 min) Moderate 12/14/2016 Visit Plan: UTI - pt with positive urinalysis - culture sent if appropriate. Antibiotic electronically prescribed to pt's pharmacy of choice. Pt to call if symptoms do not improve. Pt started on Keflex 500mg tid x 10 days. Underweight - improved on periactin. Insomnia - pt to ask for melatonin , daughter to callif not improving. Hypertension - well controlled - continue with current medications, continue with no added salt diet. Pt has been encouraged to exercise daily. The pt has been advised to call the office if there are any acute concerns about change in blood pressure readings at home. 12/11/2016 Appointment: Desiree Sagastume WPtel: [address] (15 min) Moderate 12/11/2016 Patient Education: Patient Medication Summary Completed 12/11/2016 Visit Plan: Allergies - chronic - recommended pt to use allergy medication as prescribed. Pt has been counseled as to the appropriate use of the medication. Pt to call if allergy symptoms are not controlled with the medication. If using nasal spray, instructions as follows: Nasal spray- use twice daily, one spray per nostril twice daily, after 30 minutes, rinse out nose with saline spray.. Use opposite hand per nostril to spray in the nasal steroid allergy spray. Will change mucinex to scheduled x 1 week. 11/29/2016 Appointment: Chely Garcia WPtel: [address] (30 min) Complex 11/29/2016 Patient Education: Patient Medication Summary Completed 11/29/2016 Visit Plan: Hypertension - well controlled - continue with current medications, continue with no added salt diet. Pt has been encouraged to exercise daily. The pt has been advised to call the office if there are any acute concerns about change in blood pressure readings at home. COPD - chronic problem for this patient. We have reviewed chronic treatment strategy, symptom control, and plans for acute exacerbations. No changes today to the current treatment plan as the patient is stable, monitor for acute changes. anemia - check iron panel - add to blood in lab from 09/20/16 09/21/2016 Appointment: Desiree Sagastume WPtel: [address] (15 min) Moderate 09/21/2016 Patient Education: Patient Medication Summary Completed 09/21/2016 Patient Education: Patient Medication Summary Completed 09/21/2016 Visit Plan: Hypertension - well controlled - continue with current medications, continue with no added salt diet. Pt has been encouraged to exercise daily. The pt has been advised to call the office if there are any acute concerns about change in blood pressure readings at home. Thrush - rx for diflucan one pill daily. Weight loss - rx for periactin 2mg daily. 08/23/2016 Appointment: Desiree Sagastume WPtel: [address] [facility] (15 min) Moderate 08/23/2016 Patient Education: Patient Medication Summary Completed 08/23/2016 Visit Plan: Hypertension - well controlled - continue with current medications, continue with no added salt diet. Pt has been encouraged to exercise daily. The pt has been advised to call the office if there are any acute concerns about change in blood pressure readings at home. COPD - chronic problem for this patient. We have reviewed chronic treatment strategy, symptom control, and plans for acute exacerbations. No changes today to the current treatment plan as the patient is stable, monitor for acute changes. Thrush - rx for nystatin and diflucan. 08/07/2016 Appointment: Desiree Sagastume WPtel: [phone] [facility] [place] (15 min) Moderate 08/07/2016 Patient Education: Patient Medication Summary Completed 08/07/2016 Appointment: Desiree Sagastume WPtel: [phone] [facility] (15 min) Moderate 07/26/2016 Visit Plan: Hypertension - well controlled - continue with current medications, continue with no added salt diet. Pt has been encouraged to exercise daily. The pt has been advised to call the office if there are any acute concerns about change in blood pressure readings at home. Thrush-improved- repeat nystatin Excoriation of buttock-significantly improved-continue calmoseptine cream until healed Weight loss-continue protein shakes between meals-ground meats 06/27/2016 Appointment: [phone] [place] (30 min) Complex 06/27/2016 Patient Education: Patient Medication Summary Completed 06/27/2016 Visit Plan: Thrush-RX for nystatin swish and swallow Excoriation buttock-calmospetine cream Hemorrhoid-use hydrocortisone rectal cream at bedtime x 1 week then as needed Diarrhea-start probiotics twice daily- check stool for cdiff 06/13/2016 Appointment: Jammie Rosas WPtel: [phone] [facility] [place] (30 min) Complex 06/13/2016 Patient Education: Patient Medication Summary Completed 06/13/2016 Visit Plan: Hypertension - well controlled - continue with current medications, continue with no added salt diet. Pt has been encouraged to exercise daily. The pt has been advised to call the office if there are any acute concerns about change in blood pressure readings at home. COPD - chronic problem for this patient. We have reviewed chronic treatment strategy, symptom control, and plans for acute exacerbation. No changes today to the current treatment plan as the patient is stable, monitor for acute changes. Muscle weakness - continue with current supportive care 05/24/2016 Appointment: Desiree Sagastume WPtel: [phone] [facility] [place] (15 min) Moderate 05/24/2016 Patient Education: Patient Medication Summary Completed 05/24/2016 Appointment: Desiree Sagastume WPtel: [phone] [facility] [place] (15 min) Moderate 05/18/2016 Appointment: Desiree Sagastume WPtel: [phone] [facility] [place] (15 min) Moderate 05/11/2016 Visit Plan: COPD EXACERBATION - COPD is a chronic problem for this patient, however, the pt is experiencing an acute exacerbation of the COPD. Pt is to receive appropriate treatment as an out patient, but the pt is aware that if symptoms worsen or do not improve, to call [facility] for instructions, or go to the EMERGENCY ROOM if the symptoms are beyond acute control with rescue medications. We have reviewed chronic treatment strategy, symptom control , and plans for acute exacerbations. No changes today to the current treatment plan as the patient is stable, monitor for acute changes. 04/26/2016 Appointment: [phone] ([facility] min) Complex 04/26/2016 Patient Education: Patient Medication Summary Completed 04/26/2016 Visit Plan: Hypertension - well controlled - continue with current medications, continue with no added salt diet. Pt has been encouraged to exercise daily. The pt has been advised to call the office if there are any acute concerns about change in blood pressure readings at home. Muscle weakness - monitor symptoms - start on therapy. 02/17/2016 Appointment: Desiree Sagastume WPtel: [phone] [facility] New Patient 02/17/2016 Patient Education: Patient Medication Summary Completed 02/17/2016 Appointment: New Patient 01/19/2016 Instructions Comment . Thrush-RX for nystatin swish and swallow Excoriation buttock-calmospetine cream Hemorrhoid-use hydrocortisone rectal cream at bedtime x 1 week then as needed Diarrhea-start probiotics twice daily-check stool for cdiff . Hypertension - well controlled - continue with current medications, continue with no added salt diet. Pt has been encouraged to exercise daily. The pt has been advised to call the office if there are any acute concerns about change in blood pressure readings at home. Emphysema - stable symptoms - continue with oxygen as previously directed. Cervicalgia, upper back pain - and Muscle weakness - start physical therapy. . Hypertension - well controlled - continue with current medications, continue with no added salt diet. Pt has been encouraged to exercise daily. The pt has been advised to call the office if there are any acute concerns about change in blood pressure readings at home. Emphysema - stable symptoms - continue with oxygen as previously directed. - pt qualifies for portable oxygen - the pt needs a portable oxygen concentrator. Cervicalgia, upper back pain - and Muscle weakness - start physical therapy. . Hypertension - well controlled - continue with current medications, continue with no added salt diet. Pt has been encouraged to exercise daily. The pt has been advised to call the office if there are any acute concerns about change in blood pressure readings at home. Hgvjsj-phsjbent-xrrpyy nystatin Excoriation of buttock-significantly improved-continue calmoseptine cream until healed Weight loss-continue protein shakes between meals-ground meats . Hypertension - well controlled - continue with current medications, continue with no added salt diet. Pt has been encouraged to exercise daily. The pt has been advised to call the office if there are any acute concerns about change in blood pressure readings at home. COPD - stable symptoms - continue with oxygen as previously directed. Slow transit constipation - rx for linzess sent to pharmacy. . Hypertension - well controlled - continue with current medications, continue with no added salt diet. Pt has been encouraged to exercise daily. The pt has been advised to call the office if there are any acute concerns about change in blood pressure readings at home. Thrush - rx for diflucan one pill daily. Weight loss - rx for periactin 2mg daily. . Hand pain - negative hand x-ray and uric acid WNL - will refill keflex and ASA and if symptoms do not improve will order MRI to rule out fracture and osteomyelitis - They are to call if the symptoms do not improve. . Allergies - chronic - recommended pt to use allergy medication as prescribed. Pt has been counseled as to the appropriate use of the medication. Pt to call if allergy symptoms are not controlled with the medication. If using nasal spray, instructions as follows: Nasal spray- use twice daily, one spray per nostril twice daily, after 30 minutes, rinse out nose with saline spray.. Use opposite hand per nostril to spray in the nasal steroid allergy spray. Will change mucinex to scheduled x 1 week. . Hypertension - well controlled - continue with current medications, continue with no added salt diet. Pt has been encouraged to exercise daily. The pt has been advised to call the office if there are any acute concerns about change in blood pressure readings at home. COPD - chronic problem for this patient. We have reviewed chronic treatment strategy, symptom control, and plans for acute exacerbations. No changes today to the current treatment plan as the patient is stable, monitor for acute changes. anemia - check iron panel - add to blood in lab from 09/20/16 . Hypertension - well controlled - continue with current medications, continue with no added salt diet. Pt has been encouraged to exercise daily. The pt has been advised to call the office if there are any acute concerns about change in blood pressure readings at home. Muscle weakness - monitor symptoms - start on therapy. . COPD EXACERBATION - COPD is a chronic problem for this patient, however, the pt is experiencing an acute exacerbation of the COPD. Pt is to receive appropriate treatment as an out patient, but the pt is aware that if symptoms worsen or do not improve, to call [facility] for instructions, or go to the EMERGENCY ROOM if the symptoms are beyond acute control with rescue medications. We have reviewed chronic treatment strategy, symptom control, and plans for acute exacerbations. No changes today to the current treatment plan as the patient is stable, monitor for acute changes. . Hand pain - xray of hand obtained - no evidence of fracture - labs were negative for gout - rx for keflex and antiinflammtory called to the half-way for improved comfort of her hand. They are to call if the symptoms do not improve. . UTI - pt with positive urinalysis - culture sent if appropriate. Antibiotic electronically prescribed to pt's pharmacy of choice. Pt to call if symptoms do not improve. Pt started on Keflex 500mg tid x 10 days. Underweight - improved on periactin. Insomnia - pt to ask for melatonin, daughter to callif not improving. Hypertension - well controlled - continue with current medications, continue with no added salt diet. Pt has been encouraged to exercise daily. The pt has been advised to call the office if there are any acute concerns about change in blood pressure readings at home. . Hypertension - well controlled - continue with current medications, continue with no added salt diet. Pt has been encouraged to exercise daily. The pt has been advised to call the office if there are any acute concerns about change in blood pressure readings at home. COPD - chronic problem for this patient. We have reviewed chronic treatment strategy, symptom control, and plans for acute exacerbations. No changes today to the current treatment plan as the patient is stable, monitor for acute changes. Thrush - rx for nystatin and diflucan. . Hypertension - well controlled - continue with current medications, continue with no added salt diet. Pt has been encouraged to exercise daily. The pt has been advised to call the office if there are any acute concerns about change in blood pressure readings at home. COPD - chronic problem for this patient. We have reviewed chronic treatment strategy, symptom control, and plans for acute exacerbation. No changes today to the current treatment plan as the patient is stable, monitor for acute changes. Muscle weakness - continue with current supportive care . Hypertension - well controlled - continue with current medications, continue with no added salt diet. Pt has been encouraged to exercise daily. The pt has been advised to call the office if there are any acute concerns about change in blood pressure readings at home. COPD - stable symptoms - continue with oxygen as previously directed. Muscle weakness - monitor symptoms.
--- OUTSIDE RECORDS SUMMARY | 2018-02-23 17:39 | XMS REPORT | CCD ---
Author Author Desiree Sagastume Organization Desiree Sagastume MD, [facility] Address [address] [place] [address] Phone Care Team Providers Care Features Reporter Name Role Phone PP Unavailable CCM Unavailable Summary Purpose Interface Exchange Insurance Providers Payer name Policy type / Coverage type Covered democrat ID Effective Begin Date Effective End Date HUMANA CLAIMS Commercial Insurance [id number] Unknown [facility] Commercial Insurance [id number] Unknown Family history Daughter Diagnosis Age At Onset Hypertension Unknown Thyroid Unknown Sister Diagnosis Age At Onset Thyroid Unknown Factor V Unknown Arthritis Unknown Peripheral vascular disease Unknown Runs in the family Diagnosis Age At Onset Factor V Unknown Brother Diagnosis Age At Onset Cancer Unknown Social History Social History Element Codes Description Effective Dates Living arrangements Unknown Correction VCV 08/07/2016 Marital status Unknown 02/17/2016 Number of children Unknown 7 02/17/2016 Employment Unknown Retired 02/17/[address]: 6565966 Former smoker 02/17/[address]: 423602923 Never drinks alcohol 02/17/2016 Has the patient [...] Start Date Stop Date Status Fill Instructions albuterol sulfate 2.5 mg/3 mL (0.083 %) solution for nebulization RxNorm: 921682 1 treatment INH Q4H as needed dyspnea 12/25/2017 No Stop Date Active Keflex 500 mg capsule RxNorm: 187867 1 Capsule(s) PO TID 201711/29/2017 Inactive aspirin 325 mg tablet RxNorm: 803421 1 Tablet(s) PO daily 201711/24/2017 Inactive cetirizine 10 mg tablet RxNorm: 6037856 1 Tablet(s) PO daily 12/14/2017 Inactive stop claritin cetirizine 10 mg tablet RxNorm: 9580452 1 Tablet(s) PO daily 08/16/2017 Inactive stop claritin Linzess 72 mcg capsule RxNorm: 4730378 1 Capsule(s) PO daily 02/20/2018 Active Flonase Allergy Relief 50 mcg/actuation nasal spray, suspension RxNorm: 1349059 1 [place] NASAL BID as needed 07/03/2017 07/02/2017 Inactive Flonase Allergy Relief 50 mcg/actuation nasal spray, suspension RxNorm: 7041473 1 [place] NASAL BID as needed 07/03/2017 09/30/2017 Inactive ProAir HFA 90 mcg/actuation aerosol inhaler RxNorm: 867619 2 Puff(s) INH QID as needed dyspnea 05/02/2017 No Stop Date Active DX: J44.9 Zithromax Z-Vic 250 mg tablet RxNorm: 304187 1 Tablet(s) PO UD 03/02/2017 05/21/2017 Inactive z pack as directed Keflex 500 mg capsule RxNorm: 239873 1 Capsule(s) PO TID 201612/20/2016 Inactive pentoxifylline ER 400 mg tablet,extended release RxNorm: 576395 1 Tablet(s) PO TID 11/27/2016 03/26/2017 Inactive melatonin 3 mg tablet RxNorm: 676790 1 Tablet(s) PO QHS as needed 09/21/2016 No Stop Date Active Calmoseptine 0.44 %-20.6 % topical ointment RxNorm: 452748 1 Application TOP BID 06/27/2016 No Stop Date Active and prn nystatin 100,000 unit/mL oral suspension RxNorm: 842136 5 Milliliter(s) PO QID 06/27/2016 07/06/2016 Inactive cefdinir 300 mg capsule RxNorm: 782930 1 Capsule(s) PO BID 06/201606/09/2016 Inactive Zithromax Z-Vic 250 mg tablet RxNorm: 101684 1 Tablet(s) PO UD 05/31/2016 07/06/2016 Inactive z pack as directed doxycycline hyclate 100 mg capsule RxNorm: 5394251 1 Capsule(s) PO BID 04/26/2016 05/05/2016 Inactive Kenalog 40 mg/mL suspension for injection RxNorm: 5830241 Milliliter(s) Inj 04/26/2016 04/26/2016 Inactive Ativan 1 mg tablet RxNorm: 311476 1 Tablet(s) SL Q4H as needed anxiety /air hunger 04/11/2016 No Stop Date Active Zithromax Z-Vic 250 mg tablet RxNorm: 121807 1 Tablet(s) PO UD 03/03/2016 04/10/2016 Inactive z pack as directed, please deliver to [facility] doxycycline hyclate 100 mg tablet RxNorm: 167939 1 Tablet(s) PO BID 02/25/2016 02/24/2016 Inactive doxycycline hyclate 100 mg tablet RxNorm: 985105 1 Tablet(s) PO BID 02/25/2016 03/02/2016 Inactive Please deliver to [facility] meclizine 25 mg tablet RxNorm: 716244 2 Tablet(s) PO TID as needed Dizziness No Start Date Active hyoscyamine 0.125 mg sublingual tablet RxNorm: 6968572 1 Tablet(s) SL Q2H as needed secretions No Start Date Active Alive Women's Energy 18 mg-400 mcg-80 mcg tablet RxNorm: 2 Tablet(s) PO daily No Start Date Active calcium carbonate 600 mg (1,500 mg) tablet RxNorm: 634871 1 Tablet(s) PO daily No Start Date Active hydrocodone 5 mg-acetaminophen 325 mg tablet RxNorm: 952090 1/2-1 Tablet(s) PO Q6 as needed for pain No Start Date Active Lasix 20 mg tablet RxNorm: 454975 1 Tablet(s) PO daily as needed No Start Date Active Roxanol oral RxNorm: 78411 oral No Start Date Active amlodipine 5 mg tablet RxNorm: 564191 1 Tablet(s) PO BID No Start Date Active Spiriva with HandiHaler 18 mcg and inhalation capsules RxNorm: 450331 1 Capsule(s ) INH daily No Start Date Active Ensure Plus oral RxNorm: oral No Start Date Active aspirin 81 mg tablet,delayed release RxNorm: 290880 1 Tablet(s) PO daily No Start Date Active Vitamin C 500 mg tablet RxNorm: 773083 1 Tablet(s) PO daily No Start Date Active Spiriva with HandiHaler 18 mcg and inhalation capsules RxNorm: 086882 1 Capsule(s ) INH daily No Start Date Active acetaminophen 500 mg tablet RxNorm: 200573 1-2 Tablet(s) PO TID as needed for pain No Start Date Active Pepcid 20 mg tablet RxNorm: 207159 1 Tablet(s) PO BID No Start Date Active Plavix 75 mg tablet RxNorm: 522173 1 Tablet(s) PO daily No Start Date Active Periactin 4 mg tablet RxNorm: 368741 1/2 Tablet(s) PO daily No Start Date Active melatonin 3 mg tablet RxNorm: 895844 1 Tablet(s) PO QHS as needed No Start Date 09/20/2016 Inactive albuterol sulfate 2.5 mg/3 mL (0.083 %) solution for nebulization RxNorm: 240412 1 treatment INH Q4H as needed dyspnea No Start Date 12/24/2017 Inactive Advair Diskus 500 mcg-50 mcg/dose powder for inhalation RxNorm: 2256808 1 Puff(s) INH BID No Start Date 08/06/2016 Inactive ProAir HFA 90 mcg/actuation aerosol inhaler RxNorm: 812577 2 Puff(s) INH QID as needed dyspnea No Start Date 05/01/2017 Inactive DX: J44.9 Breo Ellipta 200 mcg-25 mcg/dose powder for inhalation RxNorm: 9008235 1 Puff(s) INH daily No Start Date 08/22/2016 Inactive Zithromax Z-Vic 250 mg tablet RxNorm: 158939 1 Tablet(s) PO UD No Start Date 03/02/2016 Inactive z pack as directed Trental 400 mg tablet,extended release RxNorm: 554823 1 Tablet(s) PO TID No Start Date 11/26/2016 Inactive Valium 2 mg tablet RxNorm: 369548 1/2 Tablet(s) PO BID No Start Date 08/06/2016 Inactive Claritin 10 mg tablet RxNorm: 950786 1 Tablet(s) PO daily No Start Date 08/16/2017 Inactive Ativan 1 mg tablet RxNorm: 550993 1 Tablet(s) SL Q4H as needed anxiety /air hunger No Start Date 04/10/2016 Inactive Medication Administered Medication Codes Instructions Start Date Status Kenalog 40 mg/mL suspension for injection RxNorm: 2150192 Milliliter 04/26/2016 No longer Active Immunizations Vaccine [...] Item Item Code Result Date Culture Urine [id number] URINE CULTURE SEE NOTES 12/14/2016 Culture Urine [id number] Continued Results 12/14/2016 Urine Culture Ucult Complete >100,000 col/ml aerobic growth sent to ref lab 12/12/2016 FERRITIN [id number] FERRITIN TNP:Improper Specimen 09/21/2016 IRON/TIBC [id number] Iron 15 ug/dL 09/21/2016 IRON/TIBC [id number] TIBC 319 ug/dL 09/21/2016 IRON/TIBC [id number] % SATURATION 5 % 09/21/2016 IRON/TIBC [id number] UIBC 304 ug/dL 09/21/2016 Review of Systems [...] accomodation 11/08/2017 None Full Exam - General 1994 Ears/Nose/Throat otoscopic exam Overall: external auditory canals clear 11/08/2017 None Full Exam - General 1994 Ears/Nose/Throat otoscopic exam Overall: tympanic membranes clear 11/08/2017 None Full Exam - General 1994 Ears/Nose/Throat lips/teeth/gingiva Overall: benign lips 11/08/2017 None Full Exam - General 1994 Ears/Nose/Throat lips/teeth/gingiva Overall: normal dentition 11/08/2017 None Full Exam - General 1994 Ears/Nose/Throat oral cavity/pharynx/larynx Overall: oral mucosa clear 11/08/2017 None Full Exam - General 1994 Ears/Nose/Throat oral cavity/pharynx/larynx Overall: oropharyngeal mucosa clear 11/08/2017 None Full Exam - General 1994 Ears/Nose/Throat oral cavity/pharynx/larynx Overall: hypopharynx benign 11/08/2017 [...] Codes Date URINALYSIS NONAUTO W/O SCOPE CPT-4: 85663 12/11/2016 THER/PROPH/DIAG INJ SC/IM CPT-4: 49100 04/26/2016 TRIAMCINOLONE ACET INJ NOS CPT-4: J3301 04/26/2016 Vital Signs Date Vital 11/20/2017 Blood Pressure 1: 146/58 Code : 8480-6 BMI: 19.1 Code : 84734-2 Heart Rate 1 : 91 bpm Height: 5' SpO2: 92% Weight: 98 lbs 11/08/2017 Blood Pressure 1: 130/68 Code : 8480-6 BMI: 18.7 Code : 74152-3 Heart Rate 1 : 114 bpm Height: 5' SpO2: 94% Weight: 96 lbs 07/26/2017 Blood Pressure 1: 132/66 Code : 8480-6 BMI: 19.9 Code : 22535-1 Heart Rate 1 : 100 bpm Height: 5' SpO2: 96% Weight: 102 lbs 04/12/2017 Blood Pressure 1: 120/68 Code : 8480-6 BMI: 20.3 Code : 20871-6 Heart Rate 1 : 104 bpm Height: 5' Respiratory Rate: 18 bpm SpO2: 94% Weight: 104 lbs 01/09/2017 Blood Pressure 1: 138/80 Code : 8480-6 BMI: 20.3 Code : 95300-5 Heart Rate 1 : 96 bpm Height: 5' SpO2: 94% Temperature: 36.8 (C) / 98.3 (F) Weight: 104 lbs 12/11/2016 Blood Pressure 1: 132/72 Code : 8480-6 BMI: 19.4 Code : 03085-8 Heart Rate 1 : 106 bpm Height: 5' SpO2: 98% Weight: 99 lbs 8 oz 11/29/2016 Blood Pressure 1: 120/64 Code : 8480-6 BMI: 19.1 Code : 74731-7 Heart Rate 1 : 96 bpm Height: 5' SpO2: 97% Weight: 98 lbs 09/21/2016 Blood Pressure 1: 136/82 Code : 8480-6 BMI: 18.0 Code : 27900-2 Heart Rate 1 : 88 bpm Height: 5' SpO2: 95% Weight: 92 lbs 08/23/2016 Blood Pressure 1: 130/80 Code : 8480-6 BMI: 17.2 Code : 53508-0 Heart Rate 1 : 99 bpm Height: 5' SpO2: 97% Weight: 88 lbs 08/07/2016 Blood Pressure 1: 140/72 Code : 8480-6 BMI: 17.4 Code : 69671-2 Heart Rate 1 : 85 bpm Height: 5' SpO2: 94% Weight: 89 lbs 06/27/2016 Blood Pressure 1: 124/72 Code : 8480-6 BMI: 17.2 Code : 86965-8 Heart Rate 1 : 80 bpm Height: 5' SpO2: 92% Weight: 88 lbs 06/13/2016 Blood Pressure 1: 130/62 Code : 8480-6 BMI: 17.8 Code : 27179-8 Heart Rate 1 : 79 bpm Height: 5' SpO2: 92% Weight: 91 lbs 05/24/2016 Blood Pressure 1: 118/62 Code : 8480-6 BMI: 17.8 Code : 90496-6 Heart Rate 1 : 101 bpm Height: 5' SpO2: 96% Temperature: 37.1 (C) / 98.7 (F) Weight: 91 lbs 04/26/2016 Blood Pressure 1: 126/78 Code : 8480-6 BMI: 18.4 Code : 60785-0 Heart Rate 1 : 102 bpm Height: 5' SpO2: 91% Weight: 94 lbs 02/17/2016 Blood Pressure 1: 140/76 Code : 8480-6 BMI: 19.3 Code : 38289-5 Heart Rate 1 : 95 bpm Height: [...] not bring in readings 07/26/2017 -Checked at [facility] hypertension Alleviating Factors medication 07/26/2017 None hypertension [...] not bring in readings 04/12/2017 -Checked at [facility] hypertension Alleviating Factors medication 04/12/2017 None hypertension [...] not bring in readings 12/11/2016 -Checked at [facility] hypertension Alleviating Factors medication 12/11/2016 None hypertension [...] not bring in readings 09/21/2016 -Checked at [facility] hypertension Alleviating Factors medication 09/21/2016 None hypertension [...] not bring in readings 08/23/2016 -Checked at [facility] hypertension Alleviating Factors medication 08/23/2016 None hypertension [...] not bring in readings 08/07/2016 -Checked at [facility] hypertension Pertinent Findings dizziness 08/07/2016 "some" nausea [...] Present Encounters Encounter Performer Location Codes Date 27888 EST. PATIENT, LEVEL III Diagnosis: Pain in right hand[ICD10: M79.641] Diagnosis: Pain in joints of right hand[ICD10: M25.541] Chely Sagastume MD, [facility] CPT-4: 01412 11/20/2017 ([id number]) 82437 EST. PATIENT, LEVEL III Diagnosis: Pain in right hand[ICD10: M79.641] Diagnosis: Pain in joints of right hand[ICD10: M25.541] [facility] CPT-4: 58365 11/08/2017 ([id number]) 88966 EST. PATIENT, LEVEL IV Diagnosis: Essential (primary) hypertension[ICD10: I10] Diagnosis: Other emphysema[ICD10: J43.8] Diagnosis: Slow transit constipation[ICD10: K59.01] [facility] CPT-4: 11228 07/26/2017 ([id number]) 28888 EST. PATIENT, LEVEL IV Diagnosis: Essential (primary) hypertension[ICD10: I10] Diagnosis: Other emphysema[ICD10: J43.8] Diagnosis: Cervicalgia[ICD10: M54.2] Diagnosis: Pain in thoracic spine[ICD10: M54.6] [facility] CPT-4: 95336 04/12/2017 ([id number]) 29925 EST. PATIENT, LEVEL III Diagnosis: Essential (primary) hypertension[ICD10: I10] Diagnosis: Muscle weakness (generalized)[ICD10: M62.81] Diagnosis: Dependence on supplemental oxygen[ICD10: Z99.81] Desiree Sagastume MD, [facility] CPT-4: 71143 01/09/2017 ([id number]) 96226 EST. PATIENT, LEVEL IV Diagnosis: Essential (primary) hypertension[ICD10: I10] Diagnosis: Dysuria[ICD10: R30.0] Diagnosis: Underweight[ICD10: R63.6] Diagnosis: Urinary tract infection, site not specified[ICD10: N39.0] Diagnosis: Other insomnia[ICD10: G47.09] Desiree Sagastume MD, [facility] CPT- 4: 91535 12/11/2016 09649 EST. PATIENT, LEVEL III Diagnosis: Other allergic rhinitis[ICD10: J30.89] Chely Sagastume MD, [facility] CPT-4: 55303 11/29/2016 ([id number]) 02873 EST. PATIENT, LEVEL IV Diagnosis: Essential (primary) hypertension[ICD10: I10] Diagnosis: Chronic obstructive pulmonary disease with (acute) exacerbation[ICD10 : J44.1] Diagnosis: Anemia in other chronic diseases classified elsewhere[ICD10: D63.8] Desiree Sagastume MD [facility] CPT-4: 15902 09/21/2016 ([id number]) 71573 EST. PATIENT, LEVEL IV Diagnosis: Essential (primary) hypertension[ICD10: I10] Diagnosis: Candidal stomatitis[ICD10: B37.0] Diagnosis: Abnormal weight loss[ICD10: R63.4] Desiree Sagastume MD, [facility] CPT-4: 37489 08/23/2016 ([id number]) 91806 EST. PATIENT, LEVEL IV Diagnosis: Candidal stomatitis[ICD10: B37.0] Diagnosis: Essential (primary) hypertension[ICD10: I10] Diagnosis: Chronic obstructive pulmonary disease with acute lower respiratory infection[ICD10: J44.0] Diagnosis: Muscle weakness (generalized)[ICD10: M62.81] Desiree Sagastume MD, [facility] CPT-4: 43713 08/07/2016 ([id number]) 05439 EST. PATIENT, LEVEL IV Diagnosis: Essential (primary) hypertension[ICD10: I10] Diagnosis: Candidal stomatitis[ICD10: B37.0] Diagnosis: Abnormal weight loss[ICD10: R63.4] Jammie Sagastume MD, [facility] CPT-4: 96825 06/27/2016 ([id number]) 26807 EST. PATIENT, LEVEL IV Diagnosis: Candidal stomatitis[ICD10: B37.0] Diagnosis: Residual hemorrhoidal skin tags[ICD10: K64.4] Diagnosis: Diarrhea, unspecified[ICD10: R19.7] Jammie Sagastume MD, [facility] CPT-4: 85600 06/13/2016 ([id number]) 58598 EST. PATIENT, LEVEL IV Diagnosis: Essential (primary) hypertension[ICD10: I10] Diagnosis: Muscle weakness (generalized)[ICD10: M62.81] Diagnosis: Chronic obstructive pulmonary disease with (acute) exacerbation[ICD10 : J44.1] Desiree Sagastume MD, [facility] CPT-4: 78301 2016 93923 EST. PATIENT, LEVEL III Diagnosis: Chronic obstructive pulmonary disease with acute lower respiratory infection[ICD10: J44.0] Chely Sagastume MD, [facility] CPT-4: 18619 04/26/2016 ([id number]) OFFICE VISIT, NEW - LEVEL 4 Diagnosis: Essential (primary) hypertension[ICD10: I10] Diagnosis: Muscle weakness (generalized)[ICD10: M62.81] Diagnosis: Otalgia, bilateral[ICD10: H92.03] Desiree Sagastume MD, [facility] CPT-4: 06778 02/17/2016 Plan of Care Planned Activity Notes Codes Status Date Visit Plan: Hand pain - negative hand x-ray and uric acid WNL - will refill keflex and ASA and if symptoms do not improve will order MRI to rule out fracture and osteomyelitis - They are to call if the symptoms do not improve. 11/20/2017 Appointment: Chely Garcia WPtel: [address] [place], [place] [address] [place] (15 min) Moderate 11/20/2017 Patient Education: Patient Medication Summary Completed 11/20/2017 Visit Plan: Hand pain - xray of hand obtained - no evidence of fracture - labs were negative for gout - rx for keflex and antiinflammtory called to the residential for improved comfort of her hand. They are to call if the symptoms do not improve. 11/08/2017 Appointment: Desiree Sagastume WPtel: [phone] [facility] [place] (15 min) Moderate 11/08/2017 Patient Education: Patient Medication Summary Completed 11/08/2017 [phone] [facility] [place] ([facility] min) Moderate 10/25/2017 Appointment: [phone] [facility] [place] (15 min) Moderate 10/17/2017 Appointment: [facility] [phone] [facility] [place] (15 min) Moderate 10/09/2017 Visit Plan: [...] to pharmacy. 07/26/2017 Appointment: [facility] [phone] [facility] [place] (15 min) Moderate 07/26/2017 Patient Education: Patient Medication Summary Completed 07/26/2017 App[facility]ment: [facility] [phone] [facility] [place] (15 min) Moderate 07/10/2017 Visit [...] physical therapy. 04/12/2017 App[facility]ment[facility] [phone] [facility] ([facility] min) Moderate 04/12/2017 Patient Education: Patient [...] monitor symptoms. 01/09/2017 Appointment: [facility] [phone] [facility] [place] (15 min) Moderate 01/09/2017 Patient Education: Patient Medication Summary Completed 01/09/2017 App[facility]ment[facility] [phone] [facility] (15 min) Moderate 12/14/2016 Visit Plan: UTI [...] home. 12/11/2016 Appointment: Desiree Sagastume WPtel: [phone] [facility] (15 min) Moderate 12/11/2016 Patient Education: Patient [...] 1 week. 11/29/2016 Appointment: Chely Garcia WPtel: [phone] [facility] [address] (30 min) Complex 11/29/2016 Patient Education: Patient [...] from 09/20/16 09/21/2016 Appointment: Desiree Sagastume WPtel: [phone] [facility] (15 min) Moderate 09/21/2016 Patient Education: Patient [...] 2mg daily. 08/23/2016 Appointment: Desiree Sagastume WPtel: [phone] [facility] (15 min) Moderate 08/23/2016 Patient Education: Patient [...] and diflucan. 08/07/2016 Appointment: Desiree Sagastume WPtel: [phone] [facility] (15 min) Moderate 08/07/2016 Patient Education: Patient Medication Summary Completed 08/07/2016 Appointment: Desiree Sagastume WPtel: [facility] (15 min) Moderate 07/26/2016 Visit Plan: Hypertension [...] meals-ground meats 06/27/2016 Appointment: Jammie Rosas WPtel: [facility] [facility] [phone] (30 min) Complex 06/27/2016 Patient Education: Patient Medication Summary Completed 06/27/2016 Visit Plan: Thrush-RX for nystatin swish and swallow Excoriation buttock-calmospetine cream Hemorrhoid-use hydrocortisone rectal cream at bedtime x 1 week then as needed Diarrhea-start probiotics twice daily- check stool for cdiff 06/13/2016 Appointment: Jammie Rosas WPtel: [phone] [facility] [phone] (30 min) Complex 06/13/2016 Patient Education: Patient [...] supportive care 05/24/2016 Appointment: Desiree Sagastume WPtel: [phone] [facility] (15 min) Moderate 05/24/2016 Patient Education: Patient Medication Summary Completed 05/24/2016 Appointment: Desiree Sagastume WPtel: [phone] [facility] [place] (15 min) Moderate 05/18/2016 Appointment: Desiree Sagastume WPtel: [phone] [facility] [place] (15 min) Moderate 05/11/2016 Visit Plan: [...] acute changes. 04/26/2016 App[facility]ment: [phone] [place] ([facility] min) Complex 04/26/2016 Patient Education: Patient [...] on therapy. 02/17/2016 Appointment: [phone] [facility] [facility] Patient 02/17/2016 Patient Education: Patient [...] change in blood pressure readings at home. [id number]-[id number]-[id number] nystatin Excoriation of buttock-significantly improved-continue calmoseptine cream [...] for keflex and antiinflammtory called to the residential for improved comfort of her hand. They [...]
--- OUTSIDE RECORDS SUMMARY | 2018-02-23 17:40 | XMS REPORT | CCD ---
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 Name Role Phone PP Unavailable CCM Unavailable Summary Purpose Interface Exchange Insurance Providers Payer name Policy type / Coverage type Covered republican ID Effective Begin Date Effective End Date HUMANA CLAIMS Commercial Insurance [id number] Unknown Unknown [place] Relevvant Assistance Commercial Insurance [id number] Unknown Unknown Family history Daughter Diagnosis Age At Onset Hypertension Unknown Thyroid Unknown Sister Diagnosis Age At Onset Thyroid Unknown Factor V Unknown Arthritis Unknown Peripheral vascular disease Unknown Runs in the family Diagnosis Age At Onset Factor V Unknown Brother Diagnosis Age At Onset Cancer Unknown Social History Social History Element Codes Description Effective Dates Living arrangements Unknown Residential [facility] 08/07/2016 Marital status Unknown 02/17/2016 Number of children Unknown 7 02/17/2016 Employment Unknown Retired 02/17/[address]: 6573588 Former smoker 02/17/[address]: 073647691 Never drinks alcohol 02/17/2016 Has the patient ever used illegal drugs? Unknown Has never used illegal drugs 02/17/2016 Allergies, Adverse Reactions, Alerts Allergies, Adverse Reactions, Alerts data not found Past Medical History Illness Codes Condition Status Onset Date Resolved Date Cervicalgia ICD-9: 723.1 ICD-10: M54.2 Active 04/12/2017 Unknown Essential (primary) hypertension ICD-9: 401.1 ICD-10: I10 Active 02/17/2016 Unknown Other emphysema ICD-9 : 492.8 ICD-10: J43.8 Active 04/12/2017 Unknown Pain in thoracic spine [...] Problems Condition Codes Effective Dates Condition Status Cervicalgia ICD-9: 723.1 ICD-10: M54.2 04/12/2017 Active Essential (primary) hypertension ICD-9: 401.1 ICD-10: I10 02/17/2016 Active Other emphysema ICD-9 : 492.8 ICD-10: J43.8 04/12/2017 Active Pain in thoracic spine ICD-9: [...] Start Date Stop Date Status Fill Instructions Zithromax Z-Vic 250 mg tablet RxNorm: 225652 1 Tablet(s) PO UD 03/02/2017 No Stop Date Active z pack as directed Keflex 500 mg capsule RxNorm: 315996 1 Capsule(s) PO TID 201612/20/2016 Inactive pentoxifylline ER 400 mg tablet,extended release RxNorm: 506147 1 Tablet(s) PO TID 11/27/2016 03/26/2017 Inactive melatonin 3 mg tablet RxNorm: 967644 1 Tablet(s) PO QHS as needed 09/21/2016 No Stop Date Active Calmoseptine 0.44 %-20.6 % topical ointment RxNorm: 376461 1 Application TOP BID 06/27/2016 No Stop Date Active and prn nystatin 100,000 unit/mL oral suspension RxNorm: 649124 5 Milliliter(s) PO QID 06/27/2016 07/06/2016 Inactive cefdinir 300 mg capsule RxNorm: 247034 1 Capsule(s) PO BID 06/201606/09/2016 Inactive Zithromax Z-Vic 250 mg tablet RxNorm: 254178 1 Tablet(s) PO UD 05/31/2016 07/06/2016 Inactive z pack as directed doxycycline hyclate 100 mg capsule RxNorm: 0650478 1 Capsule(s) PO BID 04/26/2016 05/05/2016 Inactive Kenalog 40 mg/mL suspension for injection RxNorm: 7017508 Milliliter(s) Inj 04/26/2016 04/26/2016 Inactive Ativan 1 mg tablet RxNorm: 964156 1 Tablet(s) SL Q4H as needed anxiety /air hunger 04/11/2016 No Stop Date Active Zithromax Z-Vic 250 mg tablet RxNorm: 524980 1 Tablet(s) PO UD 03/03/2016 04/10/2016 Inactive z pack as directed, please deliver to [facility] doxycycline hyclate 100 mg tablet RxNorm: 054213 1 Tablet(s) PO BID 02/25/2016 02/24/2016 Inactive doxycycline hyclate 100 mg tablet RxNorm: 658687 1 Tablet(s) PO BID 02/25/2016 03/02/2016 Inactive Please deliver to [facility] meclizine 25 mg tablet RxNorm: 511269 2 Tablet(s) PO TID as needed Dizziness No Start Date Active hyoscyamine 0.125 mg sublingual tablet RxNorm: 3265191 1 Tablet(s) SL Q2H as needed secretions No Start Date Active albuterol sulfate 2.5 mg/3 mL (0.083 %) solution for nebulization RxNorm: 450699 1 treatment INH Q4H as needed dyspnea No Start Date Active Alive Women's Energy 18 mg-400 mcg-80 mcg tablet RxNorm: 2 Tablet(s) PO daily No Start Date Active calcium carbonate 600 mg (1,500 mg) tablet RxNorm: 585658 1 Tablet(s) PO daily No Start Date Active hydrocodone 5 mg-acetaminophen 325 mg tablet RxNorm: 997157 1/2-1 Tablet(s) PO Q6 as needed for pain No Start Date Active Lasix 20 mg tablet RxNorm: 630346 1 Tablet(s) PO daily as needed No Start Date Active Roxanol oral RxNorm: 22368 oral No Start Date Active amlodipine 5 mg tablet RxNorm: 350359 1 Tablet(s) PO BID No Start Date Active Spiriva with HandiHaler 18 mcg and inhalation capsules RxNorm: 260855 1 Capsule(s ) INH daily No Start Date Active Ensure Plus oral RxNorm: oral No Start Date Active aspirin 81 mg tablet,delayed release RxNorm: 113615 1 Tablet(s) PO daily No Start Date Active Vitamin C 500 mg tablet RxNorm: 237260 1 Tablet(s) PO daily No Start Date Active Spiriva with HandiHaler 18 mcg and inhalation capsules RxNorm: 884915 1 Capsule(s ) INH daily No Start Date Active acetaminophen 500 mg tablet RxNorm: 193822 1-2 Tablet(s) PO TID as needed for pain No Start Date Active Pepcid 20 mg tablet RxNorm: 331219 1 Tablet(s) PO BID No Start Date Active Claritin 10 mg tablet RxNorm: 541229 1 Tablet(s) PO daily No Start Date Active Plavix 75 mg tablet RxNorm: 328611 1 Tablet(s) PO daily No Start Date Active Periactin 4 mg tablet RxNorm: 719600 1/2 Tablet(s) PO daily No Start Date Active melatonin 3 mg tablet RxNorm: 580051 1 Tablet(s) PO QHS as needed No Start Date 09/20/2016 Inactive Advair Diskus 500 mcg-50 mcg/dose powder for inhalation RxNorm: 4358532 1 Puff(s) INH BID No Start Date 08/06/2016 Inactive Breo Ellipta 200 mcg-25 mcg/dose powder for inhalation RxNorm: 3776976 1 Puff(s) INH daily No Start Date 08/22/2016 Inactive Zithromax Z-Vic 250 mg tablet RxNorm: 398452 1 Tablet(s) PO UD No Start Date 03/02/2016 Inactive z pack as directed Trental 400 mg tablet,extended release RxNorm: 744876 1 Tablet(s) PO TID No Start Date 11/26/2016 Inactive Valium 2 mg tablet RxNorm: 903941 1/2 Tablet(s) PO BID No Start Date 08/06/2016 Inactive Ativan 1 mg tablet RxNorm: 477859 1 Tablet(s) SL Q4H as needed anxiety /air hunger No Start Date 04/10/2016 Inactive Medication Administered Medication Codes Instructions Start Date Status Kenalog 40 mg/mL suspension for injection RxNorm: 9829374 Milliliter 04/26/2016 No longer Active Immunizations Vaccine Codes Date Status Influenza CVX: 141 11/26/2014 completed Pneumococcal (Adult) CVX: 33 11/26/2014 completed Assessments Condition Codes Effective Dates Pain in thoracic spine ICD-10: M54.6 ICD-9: 724.1 04/12/2017 Cervicalgia ICD-10: M54.2 ICD-9: 723.1 04/12/2017 Essential (primary) hypertension ICD-10: I10 ICD-9: 401.1 04/12/2017 Other emphysema ICD-10: J43.8 ICD-9: 492.8 04/12/2017 Dependence on supplemental oxygen ICD-10: Z99.81 ICD-9: V46.2 01/09/2017 Muscle weakness (generalized) ICD-10: M62.81 ICD-9: 728.87 01/09/2017 Urinary tract infection, site not specified ICD-10: N39.0 ICD-9: 599.0 12/11/2016 Other insomnia ICD-10: G47.09 ICD-9: 327.09 12/11/2016 Underweight ICD-10: R63.6 ICD-9: 783.22 12/11/2016 Dysuria ICD-10: R30.0 ICD-9: 788.1 12/11/2016 Other allergic rhinitis ICD-10: J30.89 ICD-9: 477.8 11/29/2016 Chronic obstructive pulmonary disease with (acute) exacerbation ICD-10: J44.1 ICD-9: 491.21 09/21/2016 Anemia in other chronic diseases classified elsewhere ICD-10 : D63.8 ICD-9: 285.29 09/21/2016 Anemia, unspecified ICD-10: D64.9 ICD-9: 285.9 09/21/2016 Abnormal weight loss ICD-10: R63.4 ICD-9: 783.21 08/23/2016 Candidal stomatitis ICD-10: B37.0 ICD-9: 112.0 08/23/2016 Chronic obstructive pulmonary disease with acute lower respiratory infection ICD-10: J44.0 ICD-9: 491.22 08/07/2016 Residual hemorrhoidal skin tags ICD-10: K64.4 ICD-9: 455.9 06/13/2016 Diarrhea, unspecified ICD-10: R19.7 ICD-9: 787.91 06/13/2016 Otalgia, bilateral ICD-10: H92.03 ICD-9: 388.70 02/17/2016 Reason For Visit Reason For Visit Effective Dates Notes hypertension 04/12/2017 hypertension 01/09/2017 hypertension 12/11/2016 earache 11/29/2016 hypertension 09/21/2016 hypertension 08/23/2016 hypertension 08/07/2016 hemorrhoids 06/27/2016 resolved hemorrhoids 06/13/2016 hypertension 05/24/2016 cough 04/26/2016 hypertension 02/17/2016 Results Observation Observation Code Item Item Code Result Date Culture Urine [id number] URINE CULTURE SEE NOTES 12/14/2016 Culture Urine [id number] Continued Results 12/14/2016 Urine Culture Ucult Complete >100,000 col/ml aerobic growth sent to ref lab 12/12/2016 FERRITIN [id number] FERRITIN TNP:Improper Specimen 09/21/2016 IRON/TIBC [id number] Iron 15 ug/dL 09/21/2016 IRON/TIBC [id number] TIBC 319 ug/dL 09/21/2016 IRON/TIBC 3222741 % SATURATION 5 % 09/21/2016 IRON/TIBC [id number] UIBC 304 ug/dL 09/21/2016 Review of Systems System Result Effective Dates Constitutional No recent illness 2017 Constitutional No [...] lips 04/26/2016 None Full Exam - General 1995 Ears/Nose/Throat oral cavity/pharynx/larynx Overall: oral mucosa clear 04/26/2016 None Full Exam - General 1995 Ears/Nose/Throat oral cavity/pharynx/larynx Overall: oropharyngeal mucosa clear 04/26/2016 None Full Exam - General 1995 Ears/Nose/Throat oral cavity/pharynx/larynx Overall: no masses 04/26/2016 [...] Codes Date URINALYSIS NONAUTO W/O SCOPE CPT-4: 97124 12/11/2016 THER/PROPH/DIAG INJ SC/IM CPT-4: 26415 04/26/2016 TRIAMCINOLONE ACET INJ NOS CPT-4: J3301 04/26/2016 Vital Signs Date Vital 04/12/2017 Blood Pressure 1: 120/68 Code : 8480-6 BMI: 20.3 Code : 97161-8 Heart Rate 1 : 104 bpm Height: 5' Respiratory Rate: 18 bpm SpO2: 94% Weight: 104 lbs 01/09/2017 Blood Pressure 1: 138/80 Code : 8480-6 BMI: 20.3 Code : 09688-8 Heart Rate 1 : 96 bpm Height: 5' SpO2: 94% Temperature: 36.8 (C) / 98.3 (F) Weight: 104 lbs 12/11/2016 Blood Pressure 1: 132/72 Code : 8480-6 BMI: 19.4 Code : 00207-4 Heart Rate 1 : 106 bpm Height: 5' SpO2: 98% Weight: 99 lbs 8 oz 11/29/2016 Blood Pressure 1: 120/64 Code : 8480-6 BMI: 19.1 Code : 77838-4 Heart Rate 1 : 96 bpm Height: 5' SpO2: 97% Weight: 98 lbs 09/21/2016 Blood Pressure 1: 136/82 Code : 8480-6 BMI: 18.0 Code : 36141-9 Heart Rate 1 : 88 bpm Height: 5' SpO2: 95% Weight: 92 lbs 08/23/2016 Blood Pressure 1: 130/80 Code : 8480-6 BMI: 17.2 Code : 81569-2 Heart Rate 1 : 99 bpm Height: 5' SpO2: 97% Weight: 88 lbs 08/07/2016 Blood Pressure 1: 140/72 Code : 8480-6 BMI: 17.4 Code : 64024-3 Heart Rate 1 : 85 bpm Height: 5' SpO2: 94% Weight: 89 lbs 06/27/2016 Blood Pressure 1: 124/72 Code : 8480-6 BMI: 17.2 Code : 53584-8 Heart Rate 1 : 80 bpm Height: 5' SpO2: 92% Weight: 88 lbs 06/13/2016 Blood Pressure 1: 130/62 Code : 8480-6 BMI: 17.8 Code : 63396-5 Heart Rate 1 : 79 bpm Height: 5' SpO2: 92% Weight: 91 lbs 05/24/2016 Blood Pressure 1: 118/62 Code : 8480-6 BMI: 17.8 Code : 04403-6 Heart Rate 1 : 101 bpm Height: 5' SpO2: 96% Temperature: 37.1 (C) / 98.7 (F) Weight: 91 lbs 04/26/2016 Blood Pressure 1: 126/78 Code : 8480-6 BMI: 18.4 Code : 74727-4 Heart Rate 1 : 102 bpm Height: 5' SpO2: 91% Weight: 94 lbs 02/17/2016 Blood Pressure 1: 140/76 Code : 8480-6 BMI: 19.3 Code : 29592-8 Heart Rate 1 : 95 bpm Height: 5' SpO2: 93% Weight: 99 lbs Functional Status No Functional Status data History of Present Illness Symptom Name Status Result Effective Date Notes hypertension Quality primary hypertension 04/12/2017 None hypertension Onset and Resolution ongoing 04/12/2017 None hypertension Onset of Symptom during adulthood 04/12/2017 None hypertension Blood Pressure Values patient checking blood pressure at home - did not bring in readings 04/12/2017 -Checked at [facility] hypertension Alleviating Factors medication 04/12/2017 None [...] not bring in readings 08/23/2016 -Checked at [facility] hypertension Alleviating Factors medication 08/23/2016 None hypertension [...] not bring in readings 08/07/2016 -Checked at [facility] hypertension Pertinent Findings dizziness 08/07/2016 "some" nausea [...] Present Encounters Encounter Performer Location Codes Date ([id number]) 01811 EST. PATIENT, LEVEL IV Diagnosis: Essential (primary) hypertension[ICD10: I10] Diagnosis: Other emphysema[ICD10: J43.8] Diagnosis: Cervicalgia[ICD10: M54.2] Diagnosis: Pain in thoracic spine[ICD10: M54.6] [facility] CPT-4: 61680 04/12/2017 ([id number]) 96507 EST. PATIENT, LEVEL III Diagnosis: Essential (primary) hypertension[ICD10: I10] Diagnosis: Muscle weakness (generalized)[ICD10: M62.81] Diagnosis: Dependence on supplemental oxygen[ICD10: Z99.81] [facility] CPT-4: 94497 01/09/2017 ([id number]) 22879 EST. PATIENT, LEVEL IV Diagnosis: Essential (primary) hypertension[ICD10: I10] Diagnosis: Dysuria[ICD10: R30.0] Diagnosis: Underweight[ICD10: R63.6] Diagnosis: Urinary tract infection, site not specified[ICD10: N39.0] Diagnosis: Other insomnia[ICD10: G47.09] Desiree Sagastume MD [facility] CPT- 4: 38764 12/11/2016 [id number] EST. PATIENT, LEVEL III Diagnosis: Other allergic rhinitis[ICD10: J30.89] Chely Sagastume MD, [facility] CPT-4: 70335 11/29/2016 ([id number]) 62820 EST. PATIENT, LEVEL IV Diagnosis: Essential (primary) hypertension[ICD10: I10] Diagnosis: Chronic obstructive pulmonary disease with (acute) exacerbation[ICD10 : J44.1] Diagnosis: Anemia in other chronic diseases classified elsewhere[ICD10: D63.8] Desiree Sagastume MD [facility] CPT-4: 40592 09/21/2016 ([id number]) 99278 EST. PATIENT, LEVEL IV Diagnosis: Essential (primary) hypertension[ICD10: I10] Diagnosis: Candidal stomatitis[ICD10: B37.0] Diagnosis: Abnormal weight loss[ICD10: R63.4] Desiree Sagastume MD [facility] CPT-4: 33720 08/23/2016 ([id number]) 98044 EST. PATIENT, LEVEL IV Diagnosis: Candidal stomatitis[ICD10: B37.0] Diagnosis: Essential (primary) hypertension[ICD10: I10] Diagnosis: Chronic obstructive pulmonary disease with acute lower respiratory infection[ICD10: J44.0] Diagnosis: Muscle weakness (generalized)[ICD10: M62.81] Desiree Sagastume MD [facility] CPT-4: 06127 08/07/2016 ([id number]) 24645 EST. PATIENT, LEVEL IV Diagnosis: Essential (primary) hypertension[ICD10: I10] Diagnosis: Candidal stomatitis[ICD10: B37.0] Diagnosis: Abnormal weight loss[ICD10: R63.4] Jammie Sagastume MD, [facility] CPT-4: 47189 06/27/2016 ([id number]) 75381 EST. PATIENT, LEVEL IV Diagnosis: Candidal stomatitis[ICD10: B37.0] Diagnosis: Residual hemorrhoidal skin tags[ICD10: K64.4] Diagnosis: Diarrhea, unspecified[ICD10: R19.7] Jammie Sagastume MD, [facility] CPT-4: 93372 06/13/2016 ([id number]) 65693 EST. PATIENT, LEVEL IV Diagnosis: Essential (primary) hypertension[ICD10: I10] Diagnosis: Muscle weakness (generalized)[ICD10: M62.81] Diagnosis: Chronic obstructive pulmonary disease with (acute) exacerbation[ICD10 : J44.1] Desiree Sagastume MD, [facility] CPT-4: 69376 2016 86086 EST. PATIENT, LEVEL III Diagnosis: Chronic obstructive pulmonary disease with acute lower respiratory infection[ICD10: J44.0] Chely Sagastume MD, [facility] CPT-4: 15838 04/26/2016 ([id number]) OFFICE VISIT, NEW - LEVEL 4 Diagnosis: Essential (primary) hypertension[ICD10: I10] Diagnosis: Muscle weakness (generalized)[ICD10: M62.81] Diagnosis: Otalgia, bilateral[ICD10: H92.03] Desiree Sagastume MD, [facility] CPT-4: 47738 02/17/2016 Plan of Care Planned Activity Notes Codes Status Date Visit Plan: Hypertension - well controlled - [...] Muscle weakness - start physical therapy. 04/12/2017 Patient Education: Patient Medication Summary Completed [...] monitor symptoms. 01/09/2017 Appointment: Desiree Sagastume WPtel: [phone] [facility] (15 min) Moderate 01/09/2017 Patient Education: Patient Medication Summary Completed 01/09/2017 Appointment: Desiree Sagastume WPtel: [phone] [facility] (15 min) Moderate 12/14/2016 Visit Plan: UTI [...] home. 12/11/2016 Appointment: Desiree Sagastume WPtel: [phone] [facility] (15 min) Moderate 12/11/2016 Patient Education: Patient [...] week. 11/29/2016 Appointment: Chely Garcia WPtel: [phone] [facility] (30 min) Complex 11/29/2016 Patient Education: Patient [...] 09/20/16 09/21/2016 Appointment: Desiree Sagastume WPtel: [phone] [facility] (15 min) Moderate 09/21/2016 Patient Education: Patient [...] 2mg daily. 08/23/2016 Appointment: Desiree Sagastume WPtel: [phone] [facility] (15 min) Moderate 08/23/2016 Patient Education: Patient [...] and diflucan. 08/07/2016 [phone] [place] (15 min) Moderate 08/07/2016 Patient Education: Patient Medication Summary Completed 08/07/2016 Appointment: [phone] (15 min) Moderate 07/26/2016 Visit Plan: Hypertension [...] meals-ground meats 06/27/2016 Appointment: Jammie Rosas WPtel: [phone] [phone] [place] (30 min) Complex 06/27/2016 Patient Education: Patient Medication Summary Completed 06/27/2016 Visit Plan: Thrush-RX for nystatin swish and swallow Excoriation buttock-calmospetine cream Hemorrhoid-use hydrocortisone rectal cream at bedtime x 1 week then as needed Diarrhea-start probiotics twice daily- check stool for cdiff 06/13/2016 [phone] [place] (30 min) Complex 06/13/2016 Patient Education: [...] supportive care 05/24/2016 Appointment: [phone] [place] (15 min) Moderate 05/24/2016 Patient Education: Patient Medication Summary Completed 05/24/2016 Appointment: [phone] [place] (15 min) Moderate 05/18/2016 Appointment: [facility]ume [phone] [place] (15 min) Moderate 05/11/2016 Visit Plan: [...] acute changes. 04/26/2016 [phone] (30 min) Complex 04/26/2016 Patient Education: Patient [...] therapy. 02/17/2016 Appointment: [phone] New Patient 02/17/2016 Patient Education: Patient Medication [...] change in blood pressure readings at home. Ejvntv-mpgvxhen-axynbj nystatin Excoriation of buttock-significantly improved-continue calmoseptine cream [...] - rx for periactin 2mg daily. . Allergies - chronic - recommended pt [...] is stable, monitor for acute changes. . UTI - pt with positive urinalysis [...]
--- OUTSIDE RECORDS SUMMARY | 2018-02-23 17:41 | XMS REPORT | Continuity of Care Document ---
Author Author [facility] Organization [facility] Address Unknown Phone Unavailable Allergies Active Description Code Type Severity Reaction Onset Reported/Identified Relationship to Patient Clinical Status Yes PCN PCN Unknown N/ A 10/22/2015 Yes Penicillins [id number] Drug Allergy Unknown N/A 10/22/2015 Medications There is no data. Problems Date Dx Coded Attending Type Code Diagnosis Diagnosed By 07/19/2015 BRANDEE CANCINO DO Ot D64.9 ANEMIA, UNSPECIFIED 07/19/2015 BRANDEE CANCINO DO Ot R53.83 OTHER FATIGUE 07/19/2015 BRANDEE CANCINO DO Ot D64.9 ANEMIA, UNSPECIFIED 07/19/2015 BRANDEE CANCINO DO Ot R53.83 OTHER FATIGUE 07/28/2015 BRANDEE CANCINO DO Ot D64.9 ANEMIA, UNSPECIFIED 07/28/2015 EATON BRANDEE GENAO C Ot R53.83 OTHER FATIGUE 09/03/2015 NATE HA MD Ot D64.9 ANEMIA, UNSPECIFIED 09/03/2015 NATE HA MD Ot I12.9 HYPERTENSIVE CHRONIC KIDNEY DISEASE W ST 09/03/2015 NATE HA MD Ot J44.9 CHRONIC OBSTRUCTIVE PULMONARY DISEASE, U 09/03/2015 NATE HA MD Ot N18.3 CHRONIC KIDNEY DISEASE, STAGE 3 (MODERAT 09/14/2015 NATE HA MD Ot D64.9 ANEMIA, UNSPECIFIED 09/14/2015 NATE HA MD Ot I12.9 HYPERTENSIVE CHRONIC KIDNEY DISEASE W ST 09/14/2015 NATE HA MD Ot J44.9 CHRONIC OBSTRUCTIVE PULMONARY DISEASE, U 09/14/2015 NATE HA MD Ot N18.3 CHRONIC KIDNEY DISEASE, STAGE 3 (MODERAT 10/22/2015 BRANDEE CANCINO DO Ot D64.9 ANEMIA, UNSPECIFIED 10/22/2015 BRANDEE CANCINO DO Ot R53.83 OTHER FATIGUE 10/22/2015 NATE HA MD Ot D64.9 ANEMIA, UNSPECIFIED 10/22/2015 LELAND CORONA, NATE Escobar Ot I12.9 HYPERTENSIVE CHRONIC KIDNEY DISEASE W ST 10/22/2015 NATE HA MD Ot J44.9 CHRONIC OBSTRUCTIVE PULMONARY DISEASE, U 10/22/2015 NATE HA MD Ot N18.3 CHRONIC KIDNEY DISEASE, STAGE 3 (MODERAT 10/25/2015 EATON DO, BRANDEE Hernandez Ot D64.9 ANEMIA, UNSPECIFIED 10/25/2015 EATON DO, BRANDEE C Ot R53.83 OTHER FATIGUE 10/25/2015 NATE HA MD Ot D64.9 ANEMIA, UNSPECIFIED 10/25/2015 NATE HA MD Ot I12.9 HYPERTENSIVE CHRONIC KIDNEY DISEASE W ST 10/25/2015 NATE HA MD Ot J44.9 CHRONIC OBSTRUCTIVE PULMONARY DISEASE, U 10/25/2015 NATE HA MD Ot N18.3 CHRONIC KIDNEY DISEASE, STAGE 3 (MODERAT 10/25/2015 KAY CORONA, NEHAL Campbell Ot D64.9 ANEMIA, UNSPECIFIED 10/25/2015 KAY CORONA, NEHAL Campbell Ot E86.0 DEHYDRATION 10/25/2015 KAY CORONA, NEHAL Campbell Ot F03.90 UNSPECIFIED DEMENTIA WITHOUT BEHAVIORAL 10/25/2015 KAY CORONA, NEHAL Campbell Ot I73.9 PERIPHERAL VASCULAR DISEASE, UNSPECIFIED 10/25/2015 KAY CORONA, NEHAL Campbell Ot J44.1 CHRONIC OBSTRUCTIVE PULMONARY DISEASE W 10/25/2015 KAY CORONA, NEHAL Campbell Ot N18.9 CHRONIC KIDNEY DISEASE, UNSPECIFIED 10/25/2015 KAY CORONA, NEHAL Campbell Ot Z66 DO NOT RESUSCITATE 10/25/2015 KAY CORONA, NEHAL Campbell Ot Z87.891 PERSONAL HISTORY OF NICOTINE DEPENDENCE 07/16/2016 EATON DO, BRANDEE Hernandez Ot D64.9 ANEMIA, UNSPECIFIED 07/16/2016 EATON DO, BRANDEE C Ot R53.83 OTHER FATIGUE 09/27/2016 EATON DO, BRANDEE C Ot D64.9 ANEMIA, UNSPECIFIED 09/27/2016 EATON DO, BRANDEE C Ot R53.83 OTHER FATIGUE 09/27/2016 NATE HA MD Ot D64.9 ANEMIA, UNSPECIFIED 09/27/2016 LELAND CORONA, NATE Escobar Ot I12.9 HYPERTENSIVE CHRONIC KIDNEY DISEASE W ST 09/27/2016 LELAND CORONA, NATE Escobar Ot J44.9 CHRONIC OBSTRUCTIVE PULMONARY DISEASE, U 09/27/2016 LELAND CORONA, NATE Escobar Ot N18.3 CHRONIC KIDNEY DISEASE, STAGE 3 (MODERAT 09/28/2016 CARLOS CROONA, GUNNER A Ot D50.9 IRON DEFICIENCY ANEMIA, UNSPECIFIED 09/29/2016 CARLOS CORONA, GUNNER A Ot D50.9 IRON DEFICIENCY ANEMIA, UNSPECIFIED 10/02/2016 CARLOS CORONA, GUNNER A Ot D50.9 IRON DEFICIENCY ANEMIA, UNSPECIFIED 10/02/2016 CARLOS CORONA, GUNNER A Ot D50.9 IRON DEFICIENCY ANEMIA, UNSPECIFIED 10/04/2016 CARLOS CORONA, GUNNER A Ot D50.9 IRON DEFICIENCY ANEMIA, UNSPECIFIED 10/06/2016 CARLOS CORONA, GUNNER A Ot D50.9 IRON DEFICIENCY ANEMIA, UNSPECIFIED 10/09/2016 GUNNER GONZALEZ MD A Ot D50.9 IRON DEFICIENCY ANEMIA, UNSPECIFIED 10/09/2016 CARLOS CORONA, GUNNER A Ot D50.9 IRON DEFICIENCY ANEMIA, UNSPECIFIED 10/09/2016 CARLOS CORONA, GUNNER A Ot D50.9 IRON DEFICIENCY ANEMIA, UNSPECIFIED 11/06/2016 CARLOS CORONA, GUNNER A Ot D50.9 IRON DEFICIENCY ANEMIA, UNSPECIFIED 11/21/2016 EATON DO, BRANDEE C Ot D64.9 ANEMIA, UNSPECIFIED 11/21/2016 EATON DO, BRANDEE C Ot R53.83 OTHER FATIGUE 11/21/2016 LELAND CORONA, NATE Escobar Ot D64.9 ANEMIA, UNSPECIFIED 11/21/2016 LELAND CORONA, NATE Escobar Ot I12.9 HYPERTENSIVE CHRONIC KIDNEY DISEASE W ST 11/21/2016 LELAND CORONA, NATE Escobar Ot J44.9 CHRONIC OBSTRUCTIVE PULMONARY DISEASE, U 11/21/2016 LELAND CORONA, NATE Escobar Ot N18.3 CHRONIC KIDNEY DISEASE, STAGE 3 (MODERAT 11/21/2016 CARLOS CORONA, GUNNER A Ot D50.9 IRON DEFICIENCY ANEMIA, UNSPECIFIED 11/21/2016 CARLOS CORONA, GUNNER A Ot D50.9 IRON DEFICIENCY ANEMIA, UNSPECIFIED 11/25/2016 CARLOS CORONA, GUNNER A Ot D50.9 IRON DEFICIENCY ANEMIA, UNSPECIFIED 03/23/2017 YOUSUF KATZ MD Ot F32.9 MAJOR DEPRESSIVE DISORDER, SINGLE EPISOD 03/23/2017 YOUSUF KATZ MD Ot J43.9 EMPHYSEMA, UNSPECIFIED 03/23/2017 YOUSUF KATZ MD Ot N39.0 URINARY TRACT INFECTION, SITE NOT SPECIF 03/23/2017 YOUSUF KATZ MD Ot R06.02 SHORTNESS OF BREATH 03/23/2017 YOUSUF KATZ MD Ot Z79.82 HALF-WAY (CURRENT) USE OF ASPIRIN 03/23/2017 YOUSUF KATZ MD Ot Z87.01 PERSONAL HISTORY OF PNEUMONIA (RECURRENT 03/23/2017 YOUSUF KATZ MD Ot Z87.891 PERSONAL HISTORY OF NICOTINE DEPENDENCE 03/26/2017 YOUSUF KATZ MD Ot F32.9 MAJOR DEPRESSIVE DISORDER, SINGLE EPISOD 03/26/2017 YOUSUF KATZ MD Ot J43.9 EMPHYSEMA, UNSPECIFIED 03/26/2017 YOUSUF KATZ MD Ot N39.0 URINARY TRACT INFECTION, SITE NOT SPECIF 03/26/2017 YOUSUF KATZ MD Ot R06.02 SHORTNESS OF BREATH 03/26/2017 YOUSUF KATZ MD Ot Z79.82 HALF-WAY (CURRENT) USE OF ASPIRIN 03/26/2017 YOUSUF KATZ MD Ot Z87.01 PERSONAL HISTORY OF PNEUMONIA (RECURRENT 03/26/2017 YOUSUF KATZ MD Ot Z87.891 PERSONAL HISTORY OF NICOTINE DEPENDENCE 11/09/2017 GUNNER GONZALEZ MD Ot L53.9 ERYTHEMATOUS CONDITION, UNSPECIFIED 11/09/2017 GUNNER GONZALEZ MD Ot M79.89 OTHER SPECIFIED SOFT TISSUE DISORDERS 11/23/2017 GUNNER GONZALEZ MD Ot L53.9 ERYTHEMATOUS CONDITION, UNSPECIFIED 11/23/2017 GUNNER GONZALEZ MD Ot M79.89 OTHER SPECIFIED SOFT TISSUE DISORDERS 01/09/2018 BRANDEE CANCINO DO Ot D64.9 ANEMIA, UNSPECIFIED 01/09/2018 BRANDEE CANCINO DO Ot R53.83 OTHER FATIGUE 01/09/2018 NATE HA MD Ot D64.9 ANEMIA, UNSPECIFIED 01/09/2018 NATE HA MD Ot I12.9 HYPERTENSIVE CHRONIC KIDNEY DISEASE W ST 01/09/2018 NATE HA MD, Ot J44.9 CHRONIC OBSTRUCTIVE PULMONARY DISEASE, U 01/09/2018 NATE HA MD Ot N18.3 CHRONIC KIDNEY DISEASE, STAGE 3 (MODERAT 01/09/2018 GUNNER GONZALEZ MD, Ot D50.9 IRON DEFICIENCY ANEMIA, UNSPECIFIED 01/09/2018 GUNNER GONZALEZ MD, Ot L53.9 ERYTHEMATOUS CONDITION, UNSPECIFIED 01/09/2018 GUNNER GONZALEZ MD, Ot M79.89 OTHER SPECIFIED SOFT TISSUE DISORDERS Procedures There is no data. Results Test Result Range Complete blood count (CBC) with automated white blood cell (WBC) differential - 10/22/15 15:35 Blood leukocytes automated count (number/volume) 10.1 10*3/uL 4.3-11.0 Blood erythrocytes automated count (number/volume) 3.69 10*6/uL 4.35-5.85 Venous blood hemoglobin measurement (mass/volume) 11.1 g/dL 11.5-16.0 Blood hematocrit (volume fraction) 35 % 35-52 Automated erythrocyte mean corpuscular volume 94 [foz_us] 80-99 Automated erythrocyte mean corpuscular hemoglobin (mass per erythrocyte) 30 pg 25-34 Automated erythrocyte mean corpuscular hemoglobin concentration measurement ( mass/volume) 32 g/dL 32-36 Automated erythrocyte distribution width ratio 14.5 % 10.0-14.5 Automated blood platelet count (count/volume) 330 10*3/uL 130-400 Automated blood platelet mean volume measurement 10.0 [foz_us] 7.4-10.4 Automated blood neutrophils/100 leukocytes 70 % 42-75 Automated blood lymphocytes/100 leukocytes 13 % 12-44 Blood monocytes/100 leukocytes 13 % 0-12 Automated blood eosinophils/100 leukocytes 3 % 0-10 Automated blood basophils/100 leukocytes 1 % 0-10 Blood neutrophils automated count (number/volume) 7.1 10*3 1.8-7.8 Blood lymphocytes automated count (number/volume) 1.3 10*3 1.0-4.0 Blood monocytes automated count (number/volume) 1.3 10*3 0.0-1.0 Automated eosinophil count 0.3 10*3/uL 0.0-0.3 Automated blood basophil count (count/volume) 0.1 10*3/uL 0.0-0.1 Comprehensive metabolic panel - 10/22/15 15:35 Serum or plasma sodium measurement (moles/volume) 142 mmol/L 135-145 Serum or plasma potassium measurement (moles/volume) 4.2 mmol/L 3.6-5.0 Serum or plasma chloride measurement (moles/volume) 104 mmol/L 98-107 Carbon dioxide 26 mmol/L 21-32 Serum or plasma anion gap determination (moles/volume) 12 mmol/L 5-14 Serum or plasma urea nitrogen measurement (mass/volume) 32 mg/dL 7-18 Serum or plasma creatinine measurement (mass/volume) 1.75 mg/dL 0.60-1.30 Serum or plasma urea nitrogen/creatinine mass ratio 18 NRG Serum or plasma creatinine measurement with calculation of estimated glomerular filtration rate 27 NRG Serum or plasma glucose measurement (mass/volume) 145 mg/dL 70-105 Serum or plasma calcium measurement (mass/volume) 10.1 mg/dL 8.5-10.1 Serum or plasma total bilirubin measurement (mass/volume) 0.5 mg/dL 0.1-1.0 Serum or plasma alkaline phosphatase measurement (enzymatic activity/volume) 45 U/L 40-136 Serum or plasma aspartate aminotransferase measurement (enzymatic activity/ volume) 24 U/L 5-34 Serum or plasma alanine aminotransferase measurement (enzymatic activity/volume ) 24 U/L 0-55 Serum or plasma protein measurement (mass/volume) 7.0 g/dL 6.4-8.2 Serum or plasma albumin measurement (mass/volume) 4.3 g/dL 3.2-4.5 Complete urinalysis with reflex to culture - 10/22/15 15:40 Urine color determination YELLOW NRG Urine clarity determination CLEAR NRG Urine pH measurement by test strip 5 5-9 Specific gravity of urine by test strip 1.020 1.016- 1.022 Urine protein assay by test strip, semi-quantitative 2+ NEGATIVE Urine glucose detection by automated test strip NEGATIVE NEGATIVE Erythrocytes detection in urine sediment by light microscopy NEGATIVE NEGATIVE Urine ketones detection by automated test strip 1+ NEGATIVE Urine nitrite detection by test strip NEGATIVE NEGATIVE Urine total bilirubin detection by test strip NEGATIVE NEGATIVE Urine urobilinogen measurement by automated test strip (mass/volume) NORMAL NORMAL Urine leukocyte esterase detection by dipstick 1+ NEGATIVE Automated urine sediment erythrocyte count by microscopy (number/high power field) RARE NRG Automated urine sediment leukocyte count by microscopy (number/high power field ) NONE NRG Bacteria detection in urine sediment by light microscopy NEGATIVE NRG Squamous epithelial cells detection in urine sediment by light microscopy NONE NRG Crystals detection in urine sediment by light microscopy NONE NRG Casts detection in urine sediment by light microscopy PRESENT NRG Mucus detection in urine sediment by light microscopy NEGATIVE NRG Complete urinalysis with reflex to culture NO NRG Hyaline casts detection in urine sediment by light microscopy RARE NRG Complete blood count (CBC) with automated white blood cell (WBC) differential - 10/23/15 05:05 Blood leukocytes automated count (number/volume) 7.4 10*3/uL 4.3-11.0 Blood erythrocytes automated count (number/volume) 3.53 10*6/uL 4.35-5.85 Venous blood hemoglobin measurement (mass/volume) 10.7 g/dL 11.5-16.0 Blood hematocrit (volume fraction) 33 % 35-52 Automated erythrocyte mean corpuscular volume 95 [foz_us] 80-99 Automated erythrocyte mean corpuscular hemoglobin (mass per erythrocyte) 30 pg 25-34 Automated erythrocyte mean corpuscular hemoglobin concentration measurement ( mass/volume) 32 g/dL 32-36 Automated erythrocyte distribution width ratio 14.4 % 10.0-14.5 Automated blood platelet count (count/volume) 295 10*3/uL 130-400 Automated blood platelet mean volume measurement 10.1 [foz_us] 7.4-10.4 Automated blood neutrophils/100 leukocytes 96 % 42-75 Automated blood lymphocytes/100 leukocytes 4 % 12-44 Blood monocytes/100 leukocytes 0 % 0-12 Automated blood eosinophils/100 leukocytes 0 % 0-10 Automated blood basophils/100 leukocytes 0 % 0-10 Blood neutrophils automated count (number/volume) 7.1 10*3 1.8-7.8 Blood lymphocytes automated count (number/volume) 0.3 10*3 1.0-4.0 Blood monocytes automated count (number/volume) 0.0 10*3 0.0-1.0 Automated eosinophil count 0.0 10*3/uL 0.0-0.3 Automated blood basophil count (count/volume) 0.0 10*3/uL 0.0-0.1 Complete blood count (CBC) with automated white blood cell (WBC) differential - 10/24/15 05:13 Blood leukocytes automated count (number/volume) 15.4 10*3/uL 4.3-11.0 Blood erythrocytes automated count (number/volume) 3.14 10*6/uL 4.35-5.85 Venous blood hemoglobin measurement (mass/volume) 9.4 g/dL 11.5-16.0 Blood hematocrit (volume fraction) 30 % 35-52 Automated erythrocyte mean corpuscular volume 94 [foz_us] 80-99 Automated erythrocyte mean corpuscular hemoglobin (mass per erythrocyte) 30 pg 25-34 Automated erythrocyte mean corpuscular hemoglobin concentration measurement ( mass/volume) 32 g/dL 32-36 Automated erythrocyte distribution width ratio 14.8 % 10.0-14.5 Automated blood platelet count (count/volume) 242 10*3/uL 130-400 Automated blood platelet mean volume measurement 10.1 [foz_us] 7.4-10.4 Automated blood neutrophils/100 leukocytes 95 % 42-75 Automated blood lymphocytes/100 leukocytes 2 % 12-44 Blood monocytes/100 leukocytes 3 % 0-12 Automated blood eosinophils/100 leukocytes 0 % 0-10 Automated blood basophils/100 leukocytes 0 % 0-10 Blood neutrophils automated count (number/volume) 14.6 10*3 1.8-7.8 Blood lymphocytes automated count (number/volume) 0.4 10*3 1.0-4.0 Blood monocytes automated count (number/volume) 0.5 10*3 0.0-1.0 Automated eosinophil count 0.0 10*3/uL 0.0-0.3 Automated blood basophil count (count/volume) 0.0 10*3/uL 0.0-0.1 Whole blood basic metabolic panel - 10/24/15 05:13 Serum or plasma sodium measurement (moles/volume) 143 mmol/L 135-145 Serum or plasma potassium measurement (moles/volume) 3.8 mmol/L 3.6-5.0 Serum or plasma chloride measurement (moles/volume) 111 mmol/L 98-107 Carbon dioxide 20 mmol/L 21-32 Serum or plasma anion gap determination (moles/volume) 12 mmol/L 5-14 Serum or plasma urea nitrogen measurement (mass/volume) 22 mg/dL 7-18 Serum or plasma creatinine measurement (mass/volume) 0.91 mg/dL 0.60-1.30 Serum or plasma urea nitrogen/creatinine mass ratio 24 NRG Serum or plasma creatinine measurement with calculation of estimated glomerular filtration rate 58 NRG Serum or plasma glucose measurement (mass/volume) 162 mg/dL 70-105 Serum or plasma calcium measurement (mass/volume) 8.6 mg/dL 8.5-10.1 THYROID STIMULATING HORMONE - 10/24/15 05:13 THYROID STIMULATING HORMONE 0.26 u[iU]/mL 0.35-4.94 Blood manual differential performed detection - 10/24/15 05:13 Blood monocytes/100 leukocytes 1 % NRG Manual blood segmented neutrophils/100 leukocytes 87 % NRG Blood band neutrophils/100 leukocytes 8 % NRG Manual blood lymphocytes/100 leukocytes 3 % NRG Blood erythrocyte morphology finding identification NORMAL NRG Manual blood metamyelocytes/100 leukocytes 1 % NRG Automated blood complete blood count (hemogram) panel - 10/25/15 04:40 Blood leukocytes automated count (number/volume) 15.0 10*3/uL 4.3-11.0 Blood erythrocytes automated count (number/volume) 3.39 10*6/uL 4.35-5.85 Venous blood hemoglobin measurement (mass/volume) 10.2 g/dL 11.5-16.0 Blood hematocrit (volume fraction) 32 % 35-52 Automated erythrocyte mean corpuscular volume 94 [foz_us] 80-99 Automated erythrocyte mean corpuscular hemoglobin (mass per erythrocyte) 30 pg 25-34 Automated erythrocyte mean corpuscular hemoglobin concentration measurement ( mass/volume) 32 g/dL 32-36 Automated erythrocyte distribution width ratio 15.0 % 10.0-14.5 Automated blood platelet count (count/volume) 251 10*3/uL 130-400 Automated blood platelet mean volume measurement 10.3 [foz_us] 7.4-10.4 Whole blood basic metabolic panel - 10/25/15 04:40 Serum or plasma sodium measurement (moles/volume) 142 mmol/L 135-145 Serum or plasma potassium measurement (moles/volume) 3.4 mmol/L 3.6-5.0 Serum or plasma chloride measurement (moles/volume) 109 mmol/L 98-107 Carbon dioxide 21 mmol/L 21-32 Serum or plasma anion gap determination (moles/volume) 12 mmol/L 5-14 Serum or plasma urea nitrogen measurement (mass/volume) 18 mg/dL 7-18 Serum or plasma creatinine measurement (mass/volume) 0.85 mg/dL 0.60-1.30 Serum or plasma urea nitrogen/creatinine mass ratio 21 NRG Serum or plasma creatinine measurement with calculation of estimated glomerular filtration rate > NRG Serum or plasma glucose measurement (mass/volume) 119 mg/dL 70-105 Serum or plasma calcium measurement (mass/volume) 8.8 mg/dL 8.5-10.1 Complete blood count (CBC) with automated white blood cell (WBC) differential - 03/23/17 19:24 Blood leukocytes automated count (number/volume) 10.0 10*3/uL 4.3-11.0 Blood erythrocytes automated count (number/volume) 3.77 10*6/uL 4.35-5.85 Venous blood hemoglobin measurement (mass/volume) 12.4 g/dL 11.5-16.0 Blood hematocrit (volume fraction) 36 % 35-52 Automated erythrocyte mean corpuscular volume 95 [foz_us] 80-99 Automated erythrocyte mean corpuscular hemoglobin (mass per erythrocyte) 33 pg 25-34 Automated erythrocyte mean corpuscular hemoglobin concentration measurement ( mass/volume) 35 g/dL 32-36 Automated erythrocyte distribution width ratio 12.6 % 10.0-14.5 Automated blood platelet count (count/volume) 363 10*3/uL 130-400 Automated blood platelet mean volume measurement 9.5 [foz_us] 7.4-10.4 Automated blood neutrophils/100 leukocytes 69 % 42-75 Automated blood lymphocytes/100 leukocytes 13 % 12-44 Blood monocytes/100 leukocytes 13 % 0-12 Automated blood eosinophils/100 leukocytes 5 % 0-10 Automated blood basophils/100 leukocytes 1 % 0-10 Blood neutrophils automated count (number/volume) 6.9 10*3 1.8-7.8 Blood lymphocytes automated count (number/volume) 1.3 10*3 1.0-4.0 Blood monocytes automated count (number/volume) 1.3 10*3 0.0-1.0 Automated eosinophil count 0.5 10*3/uL 0.0-0.3 Automated blood basophil count (count/volume) 0.1 10*3/uL 0.0-0.1 Comprehensive metabolic panel - 03/23/17 19:24 Serum or plasma sodium measurement (moles/volume) 140 mmol/L 135-145 Serum or plasma potassium measurement (moles/volume) 3.2 mmol/L 3.6-5.0 Serum or plasma chloride measurement (moles/volume) 98 mmol/L 98-107 Carbon dioxide 29 mmol/L 21-32 Serum or plasma anion gap determination (moles/volume) 13 mmol/L 5-14 Serum or plasma urea nitrogen measurement (mass/volume) 8 mg/dL 7-18 Serum or plasma creatinine measurement (mass/volume) 0.88 mg/dL 0.60-1.30 Serum or plasma urea nitrogen/creatinine mass ratio 9 NRG Serum or plasma creatinine measurement with calculation of estimated glomerular filtration rate > NRG Serum or plasma glucose measurement (mass/volume) 126 mg/dL 70-105 Serum or plasma calcium measurement (mass/volume) 9.5 mg/dL 8.5-10.1 Serum or plasma total bilirubin measurement (mass/volume) 0.3 mg/dL 0.1-1.0 Serum or plasma alkaline phosphatase measurement (enzymatic activity/volume) 72 U/L 40-136 Serum or plasma aspartate aminotransferase measurement (enzymatic activity/ volume) 17 U/L 5-34 Serum or plasma alanine aminotransferase measurement (enzymatic activity/volume ) 16 U/L 0-55 Serum or plasma protein measurement (mass/volume) 7.4 g/dL 6.4-8.2 Serum or plasma albumin measurement (mass/volume) 4.0 g/dL 3.2-4.5 Complete urinalysis with reflex to culture - 03/23/17 19:57 Urine color determination YELLOW NRG Urine clarity determination SLIGHTLY CLOUDY NRG Urine pH measurement by test strip 6 5-9 Specific gravity of urine by test strip 1.010 1.016- 1.022 Urine protein assay by test strip, semi-quantitative 1+ NEGATIVE Urine glucose detection by automated test strip NEGATIVE NEGATIVE Erythrocytes detection in urine sediment by light microscopy 3+ NEGATIVE Urine ketones detection by automated test strip NEGATIVE NEGATIVE Urine nitrite detection by test strip NEGATIVE NEGATIVE Urine total bilirubin detection by test strip NEGATIVE NEGATIVE Urine urobilinogen measurement by automated test strip (mass/volume) NORMAL NORMAL Urine leukocyte esterase detection by dipstick 3+ NEGATIVE Automated urine sediment erythrocyte count by microscopy (number/high power field) [HPF] NRG Automated urine sediment leukocyte count by microscopy (number/high power field ) TNTC NRG Bacteria detection in urine sediment by light microscopy LARGE NRG Crystals detection in urine sediment by light microscopy NONE NRG Casts detection in urine sediment by light microscopy NONE NRG Mucus detection in urine sediment by light microscopy NEGATIVE NRG Complete urinalysis with reflex to culture YES NRG Bacterial urine culture - 03/23/17 19:57 Bacterial urine culture SEE COMMEN NRG COLONY COUNT . NRG FTX;REPORTABLE PLUS, NRG FREE TEXT ENTRY 2 MIXED DAVEY <10,000/ML NRG Encounters ACCT No. Visit Date/Time Discharge Status Pt. Type Provider Facility Loc./Unit Complaint [id number] 11/08/2017 12:26:00 11/08/2017 23:59:59 CLS Outpatient GUNNER GONZALEZ MD [facility] RAD RIGHT HAND,THUMB PAIN [id number] 03/23/2017 17:36:00 03/23/2017 21:14:00 DIS Emergency YOUSUF KATZ MD [facility] ER PRODUCTIVE COUGH/PAINFUL BREATHING/SOB [id number] 11/26/2016 00:41:00 11/26/2016 23:59:59 CLS Preadmit GUNNER GONZALEZ MD [facility] ANEMIA [id number] 10/09/2016 12:55:00 11/25/2016 00:01:00 DIS Outpatient GUNNER GONZALEZ MD [facility] ANEMIA [id number] 10/22/2015 18:38:00 10/25/2015 17:00:00 DIS Inpatient KAY CORONA, NEHAL Campbell [facility] [address] COPD,GENERALIZED WEAKNESS [id number] 09/02/2015 14:56:00 09/02/2015 23:59:59 CLS Outpatient NATE HA MD [facility] CKD,HTN,ANEMIA, COPD [id number] 07/16/2015 16:32:00 07/16/2015 23:59:59 CLS Outpatient BRANDEE CANCINO DO [facility] POSSIBLE GI BLEED, WEAKNESS, ANEMIA [id number] 01/08/2017 03:05:20 01/08/2017 23:59:59 CLS Outpatient
[2018-02-23] MEDS ORDERED: NS IV 1000 ML 1,000 ML IV ONE (18:30)
[2018-02-23] MEDS ORDERED: ACETAMINOPHEN 500 MG TAB (TYLENOL) PO PRN (18:30)
[2018-02-23] MEDS ORDERED: RT-ALBUTEROL/IPRATROPIUM 3 ML (DUONEB) VIAL INH ONE (18:30)
[2018-02-23] MEDS ORDERED: CEFEPIME INJECTION 1,000 MG in NS (IVPB) 50 ML IV ONE (18:30)
--- NOTE | 2018-02-23 18:37 | ED General ---
General Stated Complaint: CONFUSION,INCT,SOB Source of Information: Patient, Family (2 daughters) Exam Limitations: No Limitations History of Present Illness Date Seen by Provider: Feb 23, 2018 Time Seen by Provider: 18:25 Initial Comments Patient presents to ER by private conveyance from the [facility] where she lives with chief complaint that woke up early in the morning confused urinary incontinence and having some increased wheezing and coughing. Fever noted by staff. Daughter brought her over to the ER to be checked out. She follows with Dr. Sagastume and has a history of COPD and has had bladder infections before leading to delirium. She's had a little tenderness in her abdomen suprapubic. Last bowel movement was yesterday, normal, formed. No nausea or vomiting. No chest pain or leg swelling. She does have when necessary Lasix but she's not been using recently. No noted weight gain. She does not use her breathing treatment and fact it was even canceled because she had not used for over a month and her daughter got up he started but she does not recall using in the last week. She does have O2 to be used as needed for air hunger. She's not been using it lately. Allergies and Home Medications Allergies Coded Allergies: Penicillins (Unverified Allergy, Unknown, 10/22/15) Home Medications Acetaminophen 500 Mg Tablet, 500-1,000 MG PO TID PRN for PAIN, (Reported) TAKES 1-2 (500 MG) TABLETS Albuterol Sulfate 2.5 Mg/3 Ml Vial.neb, 2.5 MG IH Q4H PRN for SHORTNESS OF BREATH, (Reported) Amlodipine Besylate 5 Mg Tablet, 5 MG PO BID, (Reported) Ascorbic Acid 500 Mg Capsule.er, 500 MG PO DAILY, (Reported) Aspirin 81 Mg Tablet.dr, 81 MG PO DAILY, (Reported) Calcium Carbonate 600 Mg Tablet, 600 MG PO DAILY, (Reported) Captopril 50 Mg Tablet, 50 MG PO BID, (Reported) Cefdinir 300 Mg Capsule, 300 MG PO twice a day Prescribed by: YOUSUF KATZ on 03/23/172033 Clopidogrel Bisulfate 75 Mg Tablet, 75 MG PO DAILY, (Reported) Diazepam 2 Mg Tablet, 1 MG PO BID, (Reported) TAKES 1/2 OF A (2 MG) TABLET Fluticasone/Salmeterol 1 Each Blst.w.dev, 1 PUFF IH BID, (Reported) Loratadine 10 Mg Tablet, 10 MG PO DAILY, (Reported) Meclizine HCl 25 Mg Tablet, 50 MG PO TID PRN for DIZZINESS, (Reported) Megestrol Acetate 400 Mg/10 Ml Oral.susp, 40 MG PO DAILY, (Reported) Multivit/Iron/FA/K/Herb No.244 1 Each Tablet, 2 TAB PO DAILY, (Reported) Pentoxifylline 400 Mg Tablet.er, 400 MG PO TID, (Reported) Tiotropium [place] 1 Inh Aerp, 1 INH IH DAILY, (Reported) Patient Home Medication List Home Medication List Reviewed: Yes Review of Systems Review of Systems Constitutional: No chills; fever, malaise EENTM: No ear discharge, No hearing loss, No ear pain Respiratory: cough; No phlegm; short of breath, wheezing Cardiovascular: No chest pain, No edema, No palpitations Gastrointestinal: abdominal pain; No constipation, No diarrhea, No nausea Genitourinary: dysuria, incontinence Musculoskeletal: No back pain, No joint pain Skin: No pruritus, No rash Past Cbmoldm-Zltugw-Mcowtb Hx Patient Social History Alcohol Use: Denies Use Recreational Drug Use: No Smoking Status: Former Smoker Type Used: Cigarettes Former Smoker, Quit: Feb 26, 2011 Recent Foreign Travel: No Contact w/Someone Who Travel: No Recent Hopitalizations: No (UNKNOWN) Immunizations Up To Date Tetanus Booster (TDap): Unknown Date of Pneumonia Vaccine: Dec 27, 2014 Seasonal Allergies Seasonal Allergies: Yes Past Medical History Surgeries: No Vasectomy Respiratory: Yes Pneumonia, Chronic Bronchitis, COPD, Emphysema Currently Using CPAP: No Currently Using BIPAP: No Cardiac: Yes Peripheral Vascular Neurological: Yes Reproductive Disorders: No Renal Failure, UTI-Chronic Gastrointestinal: Yes (DECREASED APPETITE) Musculoskeletal: No Endocrine: Yes (THYROID NODULE) Loss of Vision: Denies Hearing Impairment: Denies Cancer: No Psychosocial: Yes Depression Integumentary: No Blood Disorders: Yes (IRON DEFICIENCY ANEMIA) Family Medical History ABDOMINAL CANCER G8 BROTHER FH: emphysema 19 MOTHER Peripheral arterial disease G8 SISTER Thyroid disease G8 SISTER Physical Exam-Suspected Sepsis Physical Exam Vital Signs Vital Signs - First Documented Capillary Refill : Height, Weight, BMI Height: 5'0.00" Weight: 102lbs. 0.0oz. 46.576479qi; 16.4 BMI Method:Stated General Appearance: Mild Distress, Thin Eyes: Bilateral Eye Normal Inspection, Bilateral Eye PERRL, Bilateral Eye EOMI HEENT: PERRL/EOMI; No Pharynx Normal (. Oropharynx is dry), No Moist Mucous Membranes Neck: Normal Inspection, Non Tender Respiratory: Decreased Breath Sounds, Wheezing (Few expiratory), Other ( Increased expiratory time) Cardiovascular: Regular Rate, Rhythm, No Edema, Normal Peripheral Pulses Gastrointestinal: Normal Bowel Sounds, Soft, Tenderness (Mild tenderness suprapubic without any mass.) Extremity: Normal Capillary Refill, Non Tender, No Pedal Edema Neurologic/Psychiatric: Alert, Oriented x3, No Motor/Sensory Deficits Skin: normal color, warm/dry Focused Exam Lactate Level 02/23/18 18:30: Lactic Acid Level 1.12 Lactic Acid Level Laboratory Tests Test 02/23/18 18:30 Lactic Acid Level 1.12 MMOL/L (0.50-2.00) Progress/Results/Core Measures Suspected Sepsis SIRS Temperature: Pulse: Respiratory Rate: Laboratory Tests 02/23/18 18:30: White Blood Count 18.5H Blood Pressure / Mean: 02/23/18 18:30: Lactic Acid Level 1.12 Laboratory Tests 02/23/18 18:30: Creatinine 0.91, INR Comment 1.1, Platelet Count 569H, Total Bilirubin 0.6 Results/Orders Lab Results Laboratory Tests Test 02/23/18 18:30 02/23/18 18:44 02/23/18 19:12 Range/Units White Blood Count 18.5 H 4.3-11.0 10^3/uL Red Blood Count 3.90 L 4.35-5.85 10^6/uL Hemoglobin 9.7 L 11.5-16.0 G/DL Hematocrit 31 L 35-52 % Mean Corpuscular Volume 80 80-99 FL Mean Corpuscular Hemoglobin 25 25-34 PG Mean Corpuscular Hemoglobin Concent 31 L 32-36 G/DL Red Cell Distribution Width 18.0 H 10.0-14.5 % Platelet Count 569 H 130-400 10^3/uL Mean Platelet Volume 9.8 7.4-10.4 FL Neutrophils (%) (Auto) 84 H 42-75 % Lymphocytes (%) (Auto) 6 L 12-44 % Monocytes (%) (Auto) 9 0-12 % Eosinophils (%) (Auto) 0 0-10 % Basophils (%) (Auto) 0 0-10 % Neutrophils # (Auto) 15.5 H 1.8-7.8 X 10^3 Lymphocytes # (Auto) 1.1 1.0-4.0 X 10^3 Monocytes # (Auto) 1.7 H 0.0-1.0 X 10^3 Eosinophils # (Auto) 0.1 0.0-0.3 10^3/uL Basophils # (Auto) 0.1 0.0-0.1 10^3/uL Neutrophils % (Manual) 79 % Lymphocytes % (Manual) 6 % Monocytes % (Manual) 7 % Eosinophils % (Manual) 1 % Basophils % (Manual) 1 % Band Neutrophils 6 % Blood Morphology Comment NORMAL Prothrombin Time 14.0 12.2-14.7 SEC INR Comment 1.1 0.8-1.4 Activated Partial Thromboplast Time 34 24-35 SEC Sodium Level 138 135-145 MMOL/L Potassium Level 3.9 3.6-5.0 MMOL/L Chloride Level 98 98-107 MMOL/L Carbon Dioxide Level 23 21-32 MMOL/L Anion Gap 17 H 5-14 MMOL/L Blood Urea Nitrogen 15 7-18 MG/DL Creatinine 0.91 0.60-1.30 MG/DL Estimat Glomerular Filtration Rate 58 BUN/Creatinine Ratio 16 Glucose Level 142 H 70-105 MG/DL Lactic Acid Level 1.12 0.50-2.00 MMOL/L Calcium Level 9.7 8.5-10.1 MG/DL Corrected Calcium 9.5 8.5-10.1 MG/DL Total Bilirubin 0.6 0.1-1.0 MG/DL Aspartate Amino Transf (AST/SGOT) 26 5-34 U/L Alanine Aminotransferase (ALT/SGPT) 17 0-55 U/L Alkaline Phosphatase 69 40-136 U/L Total Protein 8.2 6.4-8.2 GM/DL Albumin 4.2 3.2-4.5 GM/DL Group A Streptococcus Screen NEGATIVE NEGATIVE Urine Color YELLOW Urine Clarity SL CLOUDY Urine pH 5 5-[address] 1.020 1.016-1.022 Urine Protein 2+ H NEGATIVE Urine Glucose (UA) NEGATIVE NEGATIVE Urine Ketones 2+ H NEGATIVE Urine Nitrite NEGATIVE NEGATIVE Urine Bilirubin NEGATIVE NEGATIVE Urine Urobilinogen NORMAL NORMAL MG/DL Urine Leukocyte Esterase 3+ H NEGATIVE Urine RBC (Auto) 3+ H NEGATIVE Urine RBC 5-10 H /HPF Urine WBC 5-10 H /HPF Urine Renal Epithelial Cells 5-10 /HPF Urine Crystals PRESENT H /LPF Urine Amorphous Sediment MOD JANEL URATES H /LPF Urine Bacteria FEW H /HPF Urine Casts NONE /LPF Urine Mucus NEGATIVE /LPF Urine Culture Indicated NO Micro Results Microbiology 02/23/18 Influenza Types A,B Antigen (ZARI) - Final, Complete My Orders Orders - HAIDRE HERNANDEZ Cbc With Automated Diff (02/23/18 18:29) Comprehensive Metabolic Panel (02/23/18 18:29) Blood Culture (02/23/18 18:29) Sputum Culture (02/23/18 18:29) Urinalysis (02/23/18 18:29) Urine Culture (02/23/18 18:29) Protime With Inr (02/23/18 18:29) Partial Thromboplastin Time (02/23/18 18:29) Chest 1 View, Ap/Pa Only (02/23/18 18:29) Acetaminophen Tablet (Tylenol Tablet) (02/23/18 18:30) Saline Lock/Iv-Start (02/23/18 18:29) Saline Lock/Iv-Start (02/23/18 18:29) Vital Signs Adult Sepsis Patie Q15M (02/23/18 18:29) O2 (02/23/18 18:29) Remove Rings In Anticipation O (02/23/18 18:29) Lactic Acid Analyzer (02/23/18 18:29) Influenza A And B Antigens (02/23/18 18:29) Ns Iv 1000 Ml (Sodium Chloride 0.9%) (02/23/18 18:30) Cefepime Injection (Maxipime Injection) (02/23/18 18:30) Albuterol/Ipra Inhalation Soln (Duoneb I (02/23/18 18:30) Svn Small Volume Nebulizer (02/23/18 18:29) Rapid Strep A Screen (02/23/18 18:39) Gabriel Prep (02/23/18 18:39) Manual Differential (02/23/18 18:30) Straight Cath For Spec.-Adult (02/23/18 19:12) Medications Given in ED Current Medications Medications Dose Ordered Sig/Fred Route Start Time Stop Time Status Last Admin Dose Admin Acetaminophen 1,000 mg ONCE PRN PO 02/23/18 18:30 02/23/18 18:48 DC 02/23/18 18:40 1,000 MG Albuterol/ Ipratropium 3 ml ONCE ONCE INH 02/23/18 18:30 02/23/18 18:33 DC 02/23/18 19:13 3 ML Cefepime HCl 1000 mg/Sodium Chloride 50 ml @ 100 mls/hr ONCE ONCE IV 02/23/18 18:30 02/23/18 18:59 DC 02/23/18 19:25 100 MLS/HR Sodium Chloride 1,000 ml @ 1,000 mls/hr ONCE ONCE IV 02/23/18 18:30 02/23/18 19:29 DC 02/23/18 18:40 1,000 MLS/HR Vital Signs/I&O 02/23/18 02/23/18 02/23/18 18:05 18:05 19:13 Temp 101.1 Pulse 98 Resp 20 B/P (MAP) 166/83 (110) Pulse Ox 98 98 99 O2 Delivery Nasal Cannula Nasal Cannula Nasal Cannula O2 Flow Rate 3.00 3.00 3.00 Capillary Refill : Progress Note : Time: 18:36 Progress Note And since she's tolerated the Rocephin in the past with cefepime which would cover for potential healthcare acquired pneumonia. Don't hear any crackles. UTI would be also high on her differential. Diagnostic Imaging Diagonstic Imaging: Xray Plain Films/CT/US/NM/MRI: chest (1v) Comments [facility] [place] NAME: KATY BAUMANN [facility] REC#: [id number] PT STATUS: REG ER : 1930 PHYSICIAN: HAIDER HERNANDEZ MD ADMIT DATE: 02/23/18/ER Draft Date of Exam:02/23/18 CHEST 1 VIEW, AP/PA ONLY INDICATION: Shortness of breath. TECHNIQUE: Single view chest 6:59 PM. CORRELATION STUDY: 03/23/2017 FINDINGS: Heart size and vasculature relatively stable. Mediastinum is prominent likely owing to tortuous ectatic course of the thoracic aorta. There is suggestion of slight fullness about the right paramediastinal region. Calcified granulomas in the right hilum again demonstrated. Irregular parenchymal density in the lateral aspect of the right upper lobe is noted and appears slightly more progressed from prior study. Additional prominent interstitial markings are noted. IMPRESSION: 1. Chronic changes of the lung parenchyma. Abnormal density of the right upper lung. This could be reflective of some areas of scarring and/or perhaps surrounding pneumonitis. Possibility of neoplasm should be excluded. Dictated on workstation # [id number] Dict: 02/23/181908 Trans: 02/23/181914 [facility] [id number] Interpreted by: JOCELIN HENDRICKS DO Electronically signed by: Reviewed: Reviewed by Me Departure Communication (Admissions) Time/Spoke to Admitting Phy: 20:26 Discussed case lab imaging findings with Dr. Canchola she agrees to admit the patient for sepsis, pneumonia, UTI. Levaquin 750 mg now then pharmacy to dose and DuoNeb every 6 and Solu-Medrol 40 mg IV every 12 hours. Impression Primary Impression: Pneumonia Qualified Codes: J18.1 - Lobar pneumonia, unspecified organism Additional Impressions: UTI (urinary tract infection) Qualified Codes: N30.01 - Acute cystitis with hematuria Sepsis Qualified Codes: A41.9 - Sepsis, unspecified organism Disposition: ADMITTED INPATIENT Condition: Stable Admissions Decision to Admit Reason: Admit from ER (General) Decision to Admit/Date: Feb 23, 2018 Time/Decision to Admit Time: 20:35 Departure-Patient Inst. Referrals: GUNNER SAGASTUME MD (PCP/Family) Primary Care Physician HAIDER HERNANDEZ Feb 23, 2018 18:37
[2018-02-23 18:41] LABS: BASOPHILS # (AUTO) 0.1 10^3/uL (0.0-0.1); BASOPHILS % (AUTO) 0 % (0-10); EOSINOPHILS # (AUTO) 0.1 10^3/uL (0.0-0.3); EOSINOPHILS % (AUTO) 0 % (0-10); HEMATOCRIT 31 % (35-52); HEMOGLOBIN 9.7 G/DL (11.5-16.0); LYMPHOCYTES # (AUTO) 1.1 X 10^3 (1.0-4.0); LYMPHOCYTES % (AUTO) 6 % (12-44); MEAN CORPUSCULAR HEMOGLOBIN 25 PG (25-34); MEAN CORPUSCULAR HGB CONC 31 G/DL (32-36); MEAN CORPUSCULAR VOLUME 80 FL (80-99); MEAN PLATELET VOLUME 9.8 FL (7.4-10.4); MONOCYTES # (AUTO) 1.7 X 10^3 (0.0-1.0); MONOCYTES % (AUTO) 9 % (0-12); NEUTROPHILS # (AUTO) 15.5 X 10^3 (1.8-7.8); NEUTROPHILS % (AUTO) 84 % (42-75); PLATELET COUNT 569 10^3/uL (130-400); WHITE BLOOD COUNT 18.5 10^3/uL (4.3-11.0)
[2018-02-23 18:52] LABS: INR 1.1 (0.8-1.4)
[2018-02-23 18:59] LABS: ALBUMIN 4.2 GM/DL (3.2-4.5); BILIRUBIN,TOTAL 0.6 MG/DL (0.1-1.0); CALCIUM 9.7 MG/DL (8.5-10.1); CREATININE SERUM 0.91 MG/DL (0.60-1.30); POTASSIUM 3.9 MMOL/L (3.6-5.0); TOTAL PROTEIN 8.2 GM/DL (6.4-8.2)
--- NOTE | 2018-02-23 19:15 | Diagnostic Imaging Report ---
INDICATION: Shortness of breath. TECHNIQUE: Single view chest 6:59 PM. CORRELATION STUDY: 03/23/2017 FINDINGS: Heart size and vasculature relatively stable. Mediastinum is prominent likely owing to tortuous ectatic course of the thoracic aorta. There is suggestion of slight fullness about the right paramediastinal region. Calcified granulomas in the right hilum again demonstrated. Irregular parenchymal density in the lateral aspect of the right upper lobe is noted and appears slightly more progressed from prior study. Additional prominent interstitial markings are noted. IMPRESSION: 1. Chronic changes of the lung parenchyma. Abnormal density of the right upper lung. This could be reflective of some areas of scarring and/or perhaps surrounding pneumonitis. Possibility of neoplasm should be excluded. Dictated by: Dictated on workstation # [id number]
[2018-02-23 19:26] LABS: BILIRUBIN,URINE NEGATIVE (NEGATIVE); COLOR,URINE YELLOW; GLUCOSE, URINE (UA) NEGATIVE (NEGATIVE); KETONES,URINE 2+ (NEGATIVE); LEUKOCYTE ESTERASE ,URINE 3+ (NEGATIVE); NITRITE,URINE NEGATIVE (NEGATIVE); PH,URINE 5 (5-9); PROTEIN,URINE 2+ (NEGATIVE); UROBILINOGEN,URINE NORMAL (NORMAL)
[2018-02-23 19:27] LABS: AMORPHOUS SEDIMENT,UR MOD AMOR URATES /LPF; BACTERIA,URINE FEW /HPF; CLARITY,URINE SL CLOUDY
[2018-02-23 20:22] LABS: BAND NEUTROPHILS 6 %; BASOPHILS % (MANUAL) 1 %; EOSINOPHILS % (MANUAL) 1 %; LYMPHOCYTES % (MANUAL) 6 %; MONOCYTES % (MANUAL) 7 %; NEUTROPHILS % (MANUAL) 79 %
[2018-02-23 20:23] LABS: RBC MORPH NORMAL
[2018-02-23] MEDS ORDERED: methylPREDNISolone 40 MG/ML (Solu-MEDROL) VIAL IV ONE (20:45)
[2018-02-23 21:34] VITALS: BP 147/64
--- NOTE | 2018-02-23 21:34 | NUR ---
betty baumann admitted to room 425-1, with an admitting diagnosis of sepsis, uti, pna, on 02/23/18 from ed via cart, accompanied by staff and family. BETTY BAUMANN introduced to surroundings, call light, bed controls, phone, TV, temperature control, lights, meal times, smoking policy, visitor policy, side rail policy, bathrooms and showers. Patient Rights given to patient in the handbook.BETTY BAUMANN verbalizes understanding that [facility] is not responsible for the loss or damage to any personal effects or valuables that are kept in the patients posession during their hospitalization.
[2018-02-23] MEDS ORDERED: 1/2 NS W/KCL 20 MEQ/L 1,000 ML IV ONE (21:39)
[2018-02-23] MEDS: 1/2 NS W/KCL 20 MEQ/L 1,000 ML IV SCH (21:46)
[2018-02-23 23:04] VITALS: BP 166/83
[2018-02-24] VITALS: BP 134/61
[2018-02-24] MEDS ORDERED: 1/2 NS W/KCL 20 MEQ/L 1,000 ML IV SCH (00:15)
[2018-02-24] MEDS ORDERED: ACETAMINOPHEN 500 MG TAB (TYLENOL) PO PRN (00:15)
[2018-02-24] MEDS ORDERED: RT-ALBUTEROL/IPRATROPIUM 3 ML (DUONEB) VIAL IH PRN (00:15)
[2018-02-24] MEDS ORDERED: IBUPROFEN 600 MG (MOTRIN) TAB PO PRN (00:15)
[2018-02-24] MEDS ORDERED: LEVOFLOXACIN 750 MG/D5W 150 ML (PRE-MIX) IV ONE (00:15)
[2018-02-24] MEDS: RT-ALBUTEROL/IPRATROPIUM 3 ML (DUONEB) VIAL IH SCH ×4 (02:40→19:44)
[2018-02-24 04:00] VITALS: BP 125/58
[2018-02-24 05:12] LABS: BASOPHILS % (AUTO) 0 % (0-10); EOSINOPHILS % (AUTO) 0 % (0-10); HEMATOCRIT 28 % (35-52); HEMOGLOBIN 8.4 G/DL (11.5-16.0); LYMPHOCYTES # (AUTO) 0.3 X 10^3 (1.0-4.0); LYMPHOCYTES % (AUTO) 2 % (12-44); MEAN CORPUSCULAR HEMOGLOBIN 24 PG (25-34); MEAN CORPUSCULAR HGB CONC 30 G/DL (32-36); MEAN CORPUSCULAR VOLUME 81 FL (80-99); MEAN PLATELET VOLUME 9.7 FL (7.4-10.4); MONOCYTES # (AUTO) 0.2 X 10^3 (0.0-1.0); MONOCYTES % (AUTO) 1 % (0-12); NEUTROPHILS % (AUTO) 97 % (42-75); PLATELET COUNT 441 10^3/uL (130-400); RED BLOOD COUNT 3.46 10^6/uL (4.35-5.85); RED CELL DISTRIBUTION WIDTH 17.2 % (10.0-14.5); WHITE BLOOD COUNT 13.5 10^3/uL (4.3-11.0)
[2018-02-24 05:37] LABS: BUN/CREATININE RATIO 15; CALCIUM 8.5 MG/DL (8.5-10.1); CARBON DIOXIDE 21 MMOL/L (21-32); CHLORIDE 103 MMOL/L (98-107); GFR ESTIMATED > 60; GLUCOSE 247 MG/DL (70-105); POTASSIUM 3.9 MMOL/L (3.6-5.0); SODIUM 137 MMOL/L (135-145)
[2018-02-24] MEDS ORDERED: FAMO20TA3 PO (06:28)
[2018-02-24] MEDS ORDERED: TROL35.4 TP (06:30)
[2018-02-24] MEDS ORDERED: GUAI600T43 PO (06:31)
[2018-02-24] MEDS ORDERED: MAG30ORA2 PO (06:36)
[2018-02-24] MEDS ORDERED: MENT118G TP (06:36)
[2018-02-24] MEDS ORDERED: LOPE-134 PO (06:40)
[2018-02-24] MEDS ORDERED: CETI10TA20 PO (06:40)
[2018-02-24 08:00] VITALS: BP 148/66
[2018-02-24] MEDS: methylPREDNISolone 40 MG/ML (Solu-MEDROL) VIAL IV SCH ×2 (08:24→20:52)
[2018-02-24] MEDS: 1/2 NS W/KCL 20 MEQ/L 1,000 ML IV SCH ×4 (08:24→23:46)
[2018-02-24] MEDS: CLOPIDOGREL 75 MG (PLAVIX) TABLET PO SCH (08:25)
[2018-02-24] MEDS: ASPIRIN 81 MG CHEW (CHILDREN'S ASA) PO SCH (08:25)
[2018-02-24] MEDS ORDERED: FLUT1DIS26 IH (11:24)
[2018-02-24] MEDS ORDERED: CYPR4TAB41 PO (11:27)
[2018-02-24] MEDS ORDERED: GUAI600T86 PO (11:28)
[2018-02-24] MEDS ORDERED: FLUT9.9S NS (11:29)
--- NOTE | 2018-02-24 11:35 | NUR ---
RECEIVED LIST FROM [facility]
[2018-02-24 12:00] VITALS: BP 130/65
--- NOTE | 2018-02-24 12:59 | History & Physical-Hospitalist ---
History of Present Illness HPI/Chief Complaint CC: AMS HPI: This is an 87-year-old white female detention patient of Dr. Sagastume with a past medical history of oxygen dependent COPD and dementia who presented to the ER when her daughter brought her because of confusion and urinary incontinence. Apparently every time she gets a UTI she gets confused more so than usual baseline dementia and she was found to have a right upper lobe pneumonitis versus infiltrate versus pulmonary mass so she was placed on antibiotic coverage after review of antibiotic allergies and admitted to the hospital and continued on home medication. She is more forgetful and more confused than baseline and overall feels like she is doing better and is sitting in a chair with family at the bedside. Patient denies any pain. 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 Patients Allergies have been reviewed. Allergies Allergies Coded Allergies Penicillins (Unverified Allergy, Unknown, 10/22/15) Past Rtiuukm-Mugbsi-Bkauhe Hx Past Med/Social Hx: Reviewed Nursing Past Med/Soc Hx, Reviewed and Corrections made Patient Social History Marrital Status: single Employed/Student: retired Alcohol Use: Denies Use Recreational Drug Use: No Smoking Status: Former Smoker Former Smoker, Quit: Feb 26, 2011 Type Used: Cigarettes Physical Abuse Screen: No Sexual Abuse: No Recent Foreign Travel: No Contact w/other who traveled: No Recent Hopitalizations: No (UNKNOWN) Recent Infectious Disease Expo: No Immunizations Up To Date Tetanus Booster (TDap): Unknown Date of Pneumonia Vaccine: Dec 27, 2014 Date of Influenza Vaccine: Nov 26, 2017 Seasonal Allergies Seasonal Allergies: Yes Past Medical History Surgeries: Vasectomy Respiratory: COPD Currently Using CPAP: No Currently Using BIPAP: No Cardiac: Peripheral Vascular Neurological: Dementia Reproductive: No Genitourinary: Bladder Infection, Renal Failure, UTI-Chronic Gastrointestinal: Chronic Constipation Musculoskeletal: Arthritis Loss of Vision: Denies Hearing Impairment: Denies Psychosocial: Depression History of Blood Disorders: Yes (IRON DEFICIENCY ANEMIA) Family History ABDOMINAL CANCER G8 BROTHER FH: emphysema 19 MOTHER Peripheral arterial disease G8 SISTER Thyroid disease G8 SISTER Hypertension Review of Systems Constitutional: see HPI, dizziness, malaise, weakness EENTM: no symptoms reported Respiratory: cough, dyspnea on exertion Cardiovascular: no symptoms reported Gastrointestinal: loss of appetite, nausea Genitourinary: dysuria, frequency, incontinence (urge) Musculoskeletal: back pain Skin: no symptoms reported Psychiatric/Neurological: No Symptoms Reported All Other Systems Reviewed Negative Unless Noted: Yes Physical Exam Physical Exam Vital Signs Vital Signs - First Documented Capillary Refill : Less Than 3 Seconds Height, Weight, BMI Height: 5'0.00" Weight: 100lbs. 0.0oz. 45.453472ex; 19.5 BMI Method:Stated General Appearance: No Apparent Distress, WD/WN, Chronically ill, Thin Eyes: Bilateral Eye Normal Inspection, Bilateral Eye PERRL HEENT: PERRL/EOMI, Normal ENT Inspection, Pharynx Normal Neck: Full Range of Motion, Normal Inspection, Non Tender, Supple, Carotid Bruit Respiratory: Chest Non Tender, Normal Breath Sounds, No Accessory Muscle Use, No Respiratory Distress, Decreased Breath Sounds Cardiovascular: Regular Rate, Rhythm, No Edema, No Gallop, No JVD, No Murmur, Normal Peripheral Pulses Gastrointestinal: Normal Bowel Sounds, No Organomegaly, No Pulsatile Mass, Non Tender, Soft Back: Normal Inspection, No CVA Tenderness, No Vertebral Tenderness Extremity: Normal Capillary Refill, Normal Inspection, Normal Range of Motion, Non Tender, No Calf Tenderness, No Pedal Edema Neurologic/Psychiatric: Alert, Oriented x3, No Motor/Sensory Deficits, Normal Mood/Affect Skin: Normal Color, Warm/Dry Lymphatic: No Adenopathy Results Results/Procedures Labs Laboratory Tests 02/23/18 18:30 02/24/18 04:45 Patient resulted labs reviewed. Assessment/Plan Admission Diagnosis Assessment: Right upper lobe infiltrate versus pulmonary mass COPD oxygen dependent UTI with urinary incontinence Dementia Increased confusion care home patient with severe debility and h/o hospice candidacy CRI PVD Plan: Continue home meds Nebulizer treatments Oxygen Low-dose IV steroids Antibiotics Await urine culture Await sputum culture Severe dementia precludes anything other than a poor prognosis Patient has been a hospice candidate Admission Status: Inpatient Order (span 2 midnights) Reason for Inpatient Admission: Pneumonia with UTI and incontinence with baseline dementia will take 3 days of hospital stay Diagnosis/Problems Diagnosis/Problems (1) PNA (pneumonia) Status: Acute Qualifiers: Pneumonia type: due to unspecified organism Laterality: right Lung location: upper lobe of lung Qualified Codes: J18.1 - Lobar pneumonia, unspecified organism (2) COPD exacerbation Status: Acute (3) Incontinence Status: Acute Qualifiers: Incontinence type: urinary Urinary Incontinence type: unspecified incontinence Qualified Codes: R32 - Unspecified urinary incontinence (4) Hypertension Status: Chronic Qualifiers: Hypertension type: essential hypertension Qualified Codes: I10 - Essential (primary) hypertension (5) Oxygen dependent Status: Chronic (6) Frail elderly Status: Chronic (7) Dementia Status: Chronic Qualifiers: Dementia type: Alzheimer's disease Alzheimer's disease onset: unspecified onset Dementia behavioral disturbance: without behavioral disturbance Qualified Codes: G30.9 - Alzheimer's disease, unspecified; F02.80 - Dementia in other diseases classified elsewhere without behavioral disturbance (8) Confusion Status: Acute (9) UTI (urinary tract infection) Status: Acute Qualifiers: Urinary tract infection type: acute cystitis Hematuria presence: with hematuria Qualified Codes: N30.01 - Acute cystitis with hematuria Clinical Quality Measures DVT/VTE Risk/Contraindication: Risk Factor Score Per Nursin RFS Level Per Nursing on Admit: 4+=Very High MISSY CACNHOLA DO Feb 24, 2018 12:59
[2018-02-24] MEDS ORDERED: guaiFENesin (MUCINEX) 600 MG TAB PO PRN (13:00)
[2018-02-24] MEDS ORDERED: NON-FORMULARY MEDICATION 1 EA EA (Acetaminophen 1,000 MG) PO PRN (13:00)
[2018-02-24] MEDS ORDERED: ANTACID SUSP 30 ML UDC (MYLANTA) PO PRN (13:00)
[2018-02-24] MEDS ORDERED: RT-ALBUTEROL SULF 2.5 MG/3 ML PRE-MIX VIAL IH PRN (13:00)
[2018-02-24] MEDS ORDERED: LOPERAMIDE 2 MG (IMODIUM) CAP PO PRN (13:30)
[2018-02-24] MEDS: PENTOXIFYLLINE ER 400 MG (TRENtal) TAB PO SCH ×2 (13:53→20:52)
[2018-02-24 16:25] VITALS: BP 139/64
[2018-02-24 19:30] VITALS: BP 142/65
[2018-02-24] MEDS: RT-ADVAIR HFA 115/21 MCG PER PUFF IH SCH (19:44)
[2018-02-24] MEDS: amLODIPine 5 MG (NORVASC) TAB PO SCH (20:52)
[2018-02-24] MEDS: FAMOTIDINE 20 MG (PEPCID) TABLET PO SCH (20:52)
[2018-02-25 00:07] VITALS: BP 124/75
[2018-02-25] MEDS: RT-ALBUTEROL/IPRATROPIUM 3 ML (DUONEB) VIAL IH SCH ×4 (01:27→19:35)
[2018-02-25 04:07] VITALS: BP 130/72
[2018-02-25 07:56] VITALS: BP 152/65
[2018-02-25] MEDS: UMECLIDINIUM BROMIDE (INCRUSE ELLIPTA) 7'S IH SCH (08:37)
[2018-02-25] MEDS: RT-ADVAIR HFA 115/21 MCG PER PUFF IH SCH ×2 (08:37→19:35)
[2018-02-25] MEDS ORDERED: CLOPIDOGREL 75 MG (PLAVIX) TABLET PO SCH (09:00)
[2018-02-25] MEDS ORDERED: FLUTICASONE NASAL SPRAY (FLONASE) 16 GM BTL NS PRN (09:00)
[2018-02-25] MEDS ORDERED: NON-FORMULARY MEDICATION 1 EA EA (Aspirin (Aspir 81) 81 MG) PO SCH (09:00)
[2018-02-25] MEDS: CALCIUM CARBONATE 600 MG (CALCARB) TAB PO SCH (09:30)
[2018-02-25] MEDS: methylPREDNISolone 40 MG/ML (Solu-MEDROL) VIAL IV SCH ×2 (09:30→19:51)
[2018-02-25] MEDS: PENTOXIFYLLINE ER 400 MG (TRENtal) TAB PO SCH ×3 (09:31→19:51)
[2018-02-25] MEDS: CYPROHEPTADINE (PERIACTIN) 4 MG TAB PO SCH (09:31)
[2018-02-25] MEDS: ASPIRIN 81 MG CHEW (CHILDREN'S ASA) PO SCH (09:32)
[2018-02-25] MEDS: amLODIPine 5 MG (NORVASC) TAB PO SCH ×2 (09:32→19:51)
[2018-02-25] MEDS: CLOPIDOGREL 75 MG (PLAVIX) TABLET PO SCH (09:32)
[2018-02-25] MEDS: LORATADINE (CLARITIN) 10 MG TAB PO SCH (09:32)
[2018-02-25] MEDS: 1/2 NS W/KCL 20 MEQ/L 1,000 ML IV SCH (09:35)
[2018-02-25 12:00] VITALS: BP 142/68
--- NOTE | 2018-02-25 12:10 | Progress Note-Hospitalist ---
Subjective HPI/CC On Admission Date Seen by Provider: Feb 25, 2018 Time Seen by Provider: 11:00 CC: AMS HPI: This is an 87-year-old white female halfway patient of Dr. Sagastume with a past medical history of oxygen dependent COPD and dementia who presented to the ER when her daughter brought her because of confusion and urinary incontinence. Apparently every time she gets a UTI she gets confused more so than usual baseline dementia and she was found to have a right upper lobe pneumonitis versus infiltrate versus pulmonary mass so she was placed on antibiotic coverage after review of antibiotic allergies and admitted to the hospital and continued on home medication. She is more forgetful and more confused than baseline and overall feels like she is doing better and is sitting in a chair with family at the bedside. Patient denies any pain. Subjective/Events-last exam Patient doing much better Denies any pain Breathing better Urine culture and another culture of sputum pending Tolerating medication Wants to go home soon Focused Exam Lactate Level 02/23/18 18:30: Lactic Acid Level 1.12 Objective Exam Vital Signs Vital Signs Date Time Temp Pulse Resp B/P (MAP) Pulse Ox O2 Delivery O2 Flow Rate FiO2 02/25/18 08:38 Nasal Cannula 3.00 02/25/18 08:37 94 02/25/18 07:56 96.5 80 20 152/65 (94) Capillary Refill : Less Than 3 SecondsLess Than 3 Seconds General Appearance: No Apparent Distress, WD/WN, Chronically ill Respiratory: Chest Non Tender, Normal Breath Sounds, No Accessory Muscle Use, No Respiratory Distress, Wheezing Cardiovascular: Regular Rate, Rhythm, No Edema, No Gallop, No JVD, No Murmur, Normal Peripheral Pulses Neurologic/Psychiatric: Alert, No Motor/Sensory Deficits, Normal Mood/Affect, Disoriented Results/Procedures Lab Patient resulted labs reviewed. Assessment/Plan Assessment and Plan Assess & Plan/Chief Complaint Assessment: Right upper lobe infiltrate versus pulmonary mass COPD oxygen dependent UTI with urinary incontinence Dementia Increased confusion FPC patient with severe debility and h/o hospice candidacy CRI PVD Plan: Continue antibiotics Nebulizer treatments FPC placement at discharge Diagnosis/Problems Diagnosis/Problems (1) PNA (pneumonia) Status: Acute Qualifiers: Pneumonia type: due to unspecified organism Laterality: right Lung location: upper lobe of lung Qualified Codes: J18.1 - Lobar pneumonia, unspecified organism (2) COPD exacerbation Status: Acute (3) Incontinence Status: Acute Qualifiers: Incontinence type: urinary Urinary Incontinence type: unspecified incontinence Qualified Codes: R32 - Unspecified urinary incontinence (4) Hypertension Status: Chronic Qualifiers: Hypertension type: essential hypertension Qualified Codes: I10 - Essential (primary) hypertension (5) Oxygen dependent Status: Chronic (6) Frail elderly Status: Chronic (7) Dementia Status: Chronic Qualifiers: Dementia type: Alzheimer's disease Alzheimer's disease onset: unspecified onset Dementia behavioral disturbance: without behavioral disturbance Qualified Codes: G30.9 - Alzheimer's disease, unspecified; F02.80 - Dementia in other diseases classified elsewhere without behavioral disturbance (8) Confusion Status: Acute (9) UTI (urinary tract infection) Status: Acute Qualifiers: Urinary tract infection type: acute cystitis Hematuria presence: with hematuria Qualified Codes: N30.01 - Acute cystitis with hematuria Clinical Quality Measures DVT/VTE Risk/Contraindication: Risk Factor Score Per Nursin RFS Level Per Nursing on Admit: 4+=Very High YANELIS SEGOVIA DO Feb 25, 2018 12:10
[2018-02-25] MEDS: guaiFENesin/DM (ROBITUSSIN DM) 10 ML UDC PO PRN ×2 (12:53→19:55)
--- NOTE | 2018-02-25 12:54 | NUR ---
Initial learning disabilities resource teacher visit: pt demonstrates good rapport with this learning disabilities resource teacher. Strong pastoral rapport established while at [facility] where she resides. Facilitated free expression of thoughts and feelings about grief for her elder sister who recently . She said, "I feel like I am not far behind her." Pt said she does not know how much longer she has to live but believes she does not have many more years. She became tearful and said thinking about her own makes her empathetically sad for her children and her younger sister, with whom she has always been close. Pt welcomed prayer, after which Dr. Canchola visited and said there was a possibility of discharge tomorrow.
[2018-02-25] MEDS ORDERED: LEVOFLOXACIN 750 MG/150 ML IV 150 ML IV SCH (15:13)
--- NOTE | 2018-02-25 15:56 | Diagnostic Imaging Report ---
EXAMINATION: PA and lateral chest at 03:30 p.m. INDICATION: Pneumonia. FINDINGS: The appearance of the chest has improved since the prior exam of 02/23/2018 as the abnormal parenchymal density in the right upper lobe seen on the prior study has diminished. There is only a small amount of residual density still present in this area. I do suspect that this is related to an area of resolving pneumonia/atelectasis. The lungs are otherwise generally clear. There is no pleural effusion noted. The heart is stable in size. The mediastinum is not widened. The osseous structures are intact. IMPRESSION: 1. The appearance of the chest has improved as the right upper lobe is much better aerated. There is only a small amount of residual atelectasis/infiltrate still present in this area. Clinical follow-up is recommended. 2. There is no new abnormality noted. Dictated by: Dictated on workstation # [id number]
[2018-02-25 19:49] VITALS: BP 148/76
[2018-02-25] MEDS: FAMOTIDINE 20 MG (PEPCID) TABLET PO SCH (19:51)
[2018-02-25 23:00] VITALS: BP 131/71
[2018-02-26] MEDS: RT-ALBUTEROL/IPRATROPIUM 3 ML (DUONEB) VIAL IH SCH ×4 (03:20→19:15)
[2018-02-26 04:00] VITALS: BP 134/60
[2018-02-26 06:01] LABS: BASOPHILS % (AUTO) 0 % (0-10); EOSINOPHILS % (AUTO) 0 % (0-10); HEMATOCRIT 29 % (35-52); HEMOGLOBIN 8.5 G/DL (11.5-16.0); LYMPHOCYTES # (AUTO) 0.6 X 10^3 (1.0-4.0); LYMPHOCYTES % (AUTO) 3 % (12-44); MEAN CORPUSCULAR HEMOGLOBIN 24 PG (25-34); MEAN CORPUSCULAR HGB CONC 30 G/DL (32-36); MEAN CORPUSCULAR VOLUME 81 FL (80-99); MONOCYTES # (AUTO) 0.8 X 10^3 (0.0-1.0); MONOCYTES % (AUTO) 4 % (0-12); NEUTROPHILS # (AUTO) 16.7 X 10^3 (1.8-7.8); NEUTROPHILS % (AUTO) 93 % (42-75); PLATELET COUNT 527 10^3/uL (130-400); RED BLOOD COUNT 3.54 10^6/uL (4.35-5.85); RED CELL DISTRIBUTION WIDTH 17.7 % (10.0-14.5); WHITE BLOOD COUNT 18.1 10^3/uL (4.3-11.0)
[2018-02-26 06:36] LABS: ALANINE AMINOTRANSFERASE 19 U/L (0-55); ALBUMIN 3.8 GM/DL (3.2-4.5); ALKALINE PHOSPHATASE 61 U/L (40-136); BILIRUBIN,TOTAL 0.3 MG/DL (0.1-1.0); BUN/CREATININE RATIO 16; CALCIUM 9.5 MG/DL (8.5-10.1); CARBON DIOXIDE 27 MMOL/L (21-32); CHLORIDE 99 MMOL/L (98-107); CREATININE SERUM 0.82 MG/DL (0.60-1.30); GFR ESTIMATED > 60; GLUCOSE 206 MG/DL (70-105); POTASSIUM 4.3 MMOL/L (3.6-5.0); SODIUM 139 MMOL/L (135-145); TOTAL PROTEIN 6.9 GM/DL (6.4-8.2)
[2018-02-26 08:00] VITALS: BP 150/80
[2018-02-26] MEDS: RT-ADVAIR HFA 115/21 MCG PER PUFF IH SCH ×2 (08:01→19:15)
[2018-02-26] MEDS: UMECLIDINIUM BROMIDE (INCRUSE ELLIPTA) 7'S IH SCH (08:01)
[2018-02-26 08:03] VITALS: BP 134/60
[2018-02-26] MEDS: amLODIPine 5 MG (NORVASC) TAB PO SCH ×2 (10:05→20:24)
[2018-02-26] MEDS: CYPROHEPTADINE (PERIACTIN) 4 MG TAB PO SCH (10:05)
[2018-02-26] MEDS: PENTOXIFYLLINE ER 400 MG (TRENtal) TAB PO SCH ×3 (10:05→20:26)
[2018-02-26] MEDS: CLOPIDOGREL 75 MG (PLAVIX) TABLET PO SCH (10:06)
[2018-02-26] MEDS: ASPIRIN 81 MG CHEW (CHILDREN'S ASA) PO SCH (10:06)
[2018-02-26] MEDS: LORATADINE (CLARITIN) 10 MG TAB PO SCH (10:07)
[2018-02-26] MEDS: methylPREDNISolone 40 MG/ML (Solu-MEDROL) VIAL IV SCH ×2 (10:07→20:24)
[2018-02-26] MEDS: CALCIUM CARBONATE 600 MG (CALCARB) TAB PO SCH (10:07)
[2018-02-26] MEDS: guaiFENesin/DM (ROBITUSSIN DM) 10 ML UDC PO PRN ×2 (10:13→15:11)
[2018-02-26 12:00] VITALS: BP 138/62
--- NOTE | 2018-02-26 12:32 | Progress Note-Hospitalist ---
Subjective HPI/CC On Admission Date Seen by Provider: Feb 26, 2018 Time Seen by Provider: 10:30 CC: AMS HPI: This is an 87-year-old white female intermediate patient of Dr. Sagastume with a past medical history of oxygen dependent COPD and dementia who presented to the ER when her daughter brought her because of confusion and urinary incontinence. Apparently every time she gets a UTI she gets confused more so than usual baseline dementia and she was found to have a right upper lobe pneumonitis versus infiltrate versus pulmonary mass so she was placed on antibiotic coverage after review of antibiotic allergies and admitted to the hospital and continued on home medication. She is more forgetful and more confused than baseline and overall feels like she is doing better and is sitting in a chair with family at the bedside. Patient denies any pain. Subjective/Events-last exam Noted sputum culture Maintain on Levaquin renal dosing Breathing treatments tolerated Maintain on oxygen Is incontinent when she coughs MCC placement likely tomorrow Has no new pain or concerns Review of Systems General: Fatigue Pulmonary: Cough Genitourinary: Incontinence Focused Exam Lactate Level 02/23/18 18:30: Lactic Acid Level 1.12 Objective Exam Vital Signs Vital Signs Date Time Temp Pulse Resp B/P (MAP) Pulse Ox O2 Delivery O2 Flow Rate FiO2 02/26/18 12:00 98.1 85 16 138/62 (87) 97 Nasal Cannula 3.00 02/26/18 08:03 32 Capillary Refill : Less Than 3 SecondsLess Than 3 Seconds General Appearance: No Apparent Distress, WD/WN, Chronically ill, Thin Respiratory: Chest Non Tender, Lungs Clear, Normal Breath Sounds, No Accessory Muscle Use, No Respiratory Distress Cardiovascular: Regular Rate, Rhythm, No Edema, No Gallop, No JVD, No Murmur, Normal Peripheral Pulses Neurologic/Psychiatric: Alert, No Motor/Sensory Deficits, Normal Mood/Affect, Disoriented Results/Procedures Lab Laboratory Tests 02/26/18 05:25 Patient resulted labs reviewed. Assessment/Plan Assessment and Plan Assess & Plan/Chief Complaint Assessment: Right upper lobe infiltrate versus pulmonary mass with sputum culture sensitive to Levaquin COPD oxygen dependent Urinary incontinence Dementia Increased confusion MCC patient with severe debility and h/o hospice candidacy CRI PVD Plan: Continue antibiotics Nebulizer treatments MCC placement at discharge Maintain Levaquin Discharge tomorrow Poor prognosis Diagnosis/Problems Diagnosis/Problems (1) PNA (pneumonia) Status: Acute Qualifiers: Pneumonia type: due to unspecified organism Laterality: right Lung location: upper lobe of lung Qualified Codes: J18.1 - Lobar pneumonia, unspecified organism (2) COPD exacerbation Status: Acute (3) Incontinence Status: Acute Qualifiers: Incontinence type: urinary Urinary Incontinence type: unspecified incontinence Qualified Codes: R32 - Unspecified urinary incontinence (4) Hypertension Status: Chronic Qualifiers: Hypertension type: essential hypertension Qualified Codes: I10 - Essential (primary) hypertension (5) Oxygen dependent Status: Chronic (6) Frail elderly Status: Chronic (7) Dementia Status: Chronic Qualifiers: Dementia type: Alzheimer's disease Alzheimer's disease onset: unspecified onset Dementia behavioral disturbance: without behavioral disturbance Qualified Codes: G30.9 - Alzheimer's disease, unspecified; F02.80 - Dementia in other diseases classified elsewhere without behavioral disturbance (8) Confusion Status: Chronic Clinical Quality Measures DVT/VTE Risk/Contraindication: Risk Factor Score Per Nursin RFS Level Per Nursing on Admit: 4+=Very High YANELIS SEGOVIA DO Feb 26, 2018 12:32
[2018-02-26 15:25] VITALS: BP 137/59
[2018-02-26] MEDS: FAMOTIDINE 20 MG (PEPCID) TABLET PO SCH (20:24)
[2018-02-27 00:02] VITALS: BP 137/59
[2018-02-27] MEDS: RT-ALBUTEROL/IPRATROPIUM 3 ML (DUONEB) VIAL IH SCH ×2 (02:31→09:05)
[2018-02-27 08:01] VITALS: BP 140/60
[2018-02-27] MEDS: UMECLIDINIUM BROMIDE (INCRUSE ELLIPTA) 7'S IH SCH (09:08)
[2018-02-27] MEDS: RT-ADVAIR HFA 115/21 MCG PER PUFF IH SCH (09:08)
--- NOTE | 2018-02-27 09:08 | Diagnostic Imaging Report ---
Clinical indication: Followup pneumonia. Exam: Chest x-ray PA and lateral views. Comparison: Chest x-ray dated 02/25/2018. Chest x-ray dated 03/23/2017. There is stable appearance of both lungs with curvilinear and increased opacity in the right upper lobe compared to the prior chest x-ray dated 02/25/2018. Stable mild increased airspace opacities in the left lung base region, representing scarring and is stable compared to the prior chest x-ray dated 03/23/2017. The remainder of the lungs are clear. There is no pleural effusion or pneumothorax. Calcified lymph nodes in the mediastinal region are again seen. Pulmonary vasculature and cardiac silhouettes within normal limits. Impression: 1. Stable area of increased airspace opacity in the right upper lobe which may represent residual infiltrate. Superimposed atelectasis or scarring may also be considered. Follow up chest x-ray in 2 - 4 weeks is suggested to evaluate for interval resolution of this finding. 2: Stable mild increased airspace opacities in left lung base which represent scarring. Dictated by: Dictated on workstation # [id number]
--- NOTE | 2018-02-27 09:27 | Discharge Summary ---
Diagnosis/Chief Complaint Date of Admission Feb 23, 2018 at 20:42 Date of Discharge Discharge Summary Discharge Physical Examination Allergies: Coded Allergies: Penicillins (Unverified Allergy, Unknown, 10/22/15) Vitals & I&Os Vital Signs Date Time Temp Pulse Resp B/P (MAP) Pulse Ox O2 Delivery O2 Flow Rate FiO2 02/27/18 09:05 95 Nasal Cannula 2.50 02/27/18 08:01 97.8 90 18 140/60 (86) 02/26/18 08:03 32 Discharge Instructions to patient/family Please see electronic discharge instructions given to patient. Discharge Medications Reviewed and agree with Discharge Medication list on patient's Discharge Instruction sheet Clinical Quality Measures DVT/VTE Risk/Contraindication: Risk Factor Score Per Nursin RFS Level Per Nursing on Admit: 4+=Very High GUNNER GONZALEZ MD Feb 27, 2018 09:27
[2018-02-27] MEDS ORDERED: LACT1TAB25 PO (09:31)
[2018-02-27] MEDS ORDERED: PRED10TA22 PO (09:31)
[2018-02-27] MEDS ORDERED: LEVO750T39 PO (09:31)
--- NOTE | 2018-02-27 09:32 | Discharge Inst-Skilled Nursing ---
Discharge Inst-Skilled NF Patient Instructions Patient Problems: PNEUMONIA COPD/EMPHYSEMA UNDERWEIGHT Consult/Follow Up/Orders Follow Up Appt.: [facility] Skilled NF Admit to: [facility] Certification (SNF) I certify that SNF services are required to be given on an inpatient basis because of the above named patient's need for halfway care on a continuing basis for the conditions(s) for which he/she was receiving inpatient hospital services prior to his/her transfer to the SNF. Group Home Facility Order: Nursing Services, Wine Specialist-Evaluate & Treat, Physical Therapy-Evaluate & Treat Discharge Diet: Regular Diet Daily Activity as Tolerated: Yes New & Resume Previous Orders New & Resume Previous Orders START SKILLED THERAPIES - FOR INCREASE STRENGTH, IMPROVED MOBILITY CONTINUE WITH OXYGEN AT PREVIOUS LEVELS Gunner Sagastume Feb 27, 2018 09:31 GUNNER SAGASTUME MD Feb 27, 2018 09:32
[2018-02-27] MEDS: LORATADINE (CLARITIN) 10 MG TAB PO SCH (09:37)
[2018-02-27] MEDS: CYPROHEPTADINE (PERIACTIN) 4 MG TAB PO SCH (09:37)
[2018-02-27] MEDS: PENTOXIFYLLINE ER 400 MG (TRENtal) TAB PO SCH ×2 (09:37→12:46)
[2018-02-27] MEDS: CLOPIDOGREL 75 MG (PLAVIX) TABLET PO SCH (09:37)
[2018-02-27] MEDS: amLODIPine 5 MG (NORVASC) TAB PO SCH (09:37)
[2018-02-27] MEDS: methylPREDNISolone 40 MG/ML (Solu-MEDROL) VIAL IV SCH (09:37)
[2018-02-27] MEDS: ASPIRIN 81 MG CHEW (CHILDREN'S ASA) PO SCH (09:38)
[2018-02-27] MEDS: CALCIUM CARBONATE 600 MG (CALCARB) TAB PO SCH (09:38)
[2018-02-27] MEDS ORDERED: LEVOFLOXACIN 750 MG TAB (LEVAQUIN) PO SCH (11:00)
[2018-02-27 13:20] VITALS: BP 140/60
--- NOTE | 2018-02-27 13:34 | NUR ---
CM/SS. Patient discharged back to established placement with [facility], Medicare skilled status. Facility scheduled to car pick up driver [id number]. Faxed orders, prepared continuum of care packet to accompany patient. Daughter present in room and updated, called daughter Vania by phone as well. Unit RN aware of all plans.
== END 2018-02-27 13:20 | DRG 871 ==
LOC: EDUNIT# 17:31 → ER 17:32 → 4TH 20:42
PROVIDERS: ADMIT Internal Medicine; ATTEND Internal Medicine
DX: A41.9 Sepsis, unspecified organism (principal); J18.1 Lobar pneumonia, unspecified organism; R91.8 Other nonspecific abnormal finding of lung field; N30.01 Acute cystitis with hematuria; R32 Unspecified urinary incontinence; J43.9 Emphysema, unspecified; G30.9 Alzheimer's disease, unspecified; F02.80 Dementia in other diseases classified elsewhere, unspecified severity, without behavioral disturbance, psychotic disturbance, mood disturbance, and anxiety; Z66 Do not resuscitate; J30.2 Other seasonal allergic rhinitis; I73.9 Peripheral vascular disease, unspecified; R63.0 Anorexia; D50.9 Iron deficiency anemia, unspecified; N18.9 Chronic kidney disease, unspecified; F32.9 Major depressive disorder, single episode, unspecified; M19.91 Primary osteoarthritis, unspecified site; R54 Age-related physical debility; Z99.81 Dependence on supplemental oxygen; Z87.891 Personal history of nicotine dependence; Z91.19 Patient's noncompliance with other medical treatment and regimen
CPT/HCPCS: 36415; 51701; 71045; 71046; 80048; 80053; 81000; 83605; 85007; 85025; 85027; 85610; 85730; 87040; 87070; 87077; 87088; 87185; 87205; 87220; 87430; 87804; 94640; 94760; 96361; 96365; 96375

== ENCOUNTER → 2018-03-16 | Outpatient (CLI) | payer MEDICARE, MEDICAID ==
[~2018-03-16] MED LIST changes: +CETI10TA20 PO; +CYPR4TAB41 PO; +FAMO20TA3 PO; +FLUT1DIS26 IH; +FLUT9.9S NS; +GUAI600T43 PO; +GUAI600T86 PO; +LACT1TAB25 PO; +LEVO750T39 PO; +LOPE-134 PO; +MAG30ORA2 PO; +MENT118G TP; +PRED10TA22 PO; +TROL35.4 TP
[2018-03-16 10:40] LABS: BASOPHILS # (AUTO) 0.1 10^3/uL (0.0-0.1); BASOPHILS % (AUTO) 1 % (0-10); EOSINOPHILS % (AUTO) 0 % (0-10); HEMATOCRIT 28 % (35-52); HEMOGLOBIN 8.4 G/DL (11.5-16.0); LYMPHOCYTES # (AUTO) 0.9 X 10^3 (1.0-4.0); LYMPHOCYTES % (AUTO) 15 % (12-44); MEAN CORPUSCULAR HEMOGLOBIN 24 PG (25-34); MEAN CORPUSCULAR HGB CONC 30 G/DL (32-36); MEAN CORPUSCULAR VOLUME 78 FL (80-99); MONOCYTES # (AUTO) 0.7 X 10^3 (0.0-1.0); MONOCYTES % (AUTO) 12 % (0-12); NEUTROPHILS # (AUTO) 4.2 X 10^3 (1.8-7.8); NEUTROPHILS % (AUTO) 72 % (42-75); PLATELET COUNT 86 10^3/uL (130-400); RED BLOOD COUNT 3.55 10^6/uL (4.35-5.85); RED CELL DISTRIBUTION WIDTH 17.4 % (10.0-14.5); WHITE BLOOD COUNT 5.9 10^3/uL (4.3-11.0)
== END ==
LOC: LABNPT 06:53
PROVIDERS: ATTEND Family Medicine
DX: N39.0 Urinary tract infection, site not specified (principal); D69.6 Thrombocytopenia, unspecified; I12.9 Hypertensive chronic kidney disease with stage 1 through stage 4 chronic kidney disease, or unspecified chronic kidney disease; N18.9 Chronic kidney disease, unspecified; R53.81 Other malaise; Z91.81 History of falling; N39.41 Urge incontinence; Z87.891 Personal history of nicotine dependence
CPT/HCPCS: 85025; 87088

== ENCOUNTER → 2018-03-17 | Outpatient (CLI) | payer MEDICARE, MEDICAID ==
[2018-03-17 10:26] LABS: BASOPHILS % (AUTO) 1 % (0-10); EOSINOPHILS # (AUTO) 0.1 10^3/uL (0.0-0.3); EOSINOPHILS % (AUTO) 1 % (0-10); HEMATOCRIT 26 % (35-52); HEMOGLOBIN 8.1 G/DL (11.5-16.0); LYMPHOCYTES # (AUTO) 0.8 X 10^3 (1.0-4.0); LYMPHOCYTES % (AUTO) 11 % (12-44); MEAN CORPUSCULAR HEMOGLOBIN 24 PG (25-34); MEAN CORPUSCULAR HGB CONC 31 G/DL (32-36); MEAN CORPUSCULAR VOLUME 78 FL (80-99); MEAN PLATELET VOLUME 9.7 FL (7.4-10.4); MONOCYTES % (AUTO) 14 % (0-12); NEUTROPHILS # (AUTO) 5.4 X 10^3 (1.8-7.8); NEUTROPHILS % (AUTO) 74 % (42-75); PLATELET COUNT 97 10^3/uL (130-400); RED BLOOD COUNT 3.34 10^6/uL (4.35-5.85); WHITE BLOOD COUNT 7.3 10^3/uL (4.3-11.0)
== END ==
LOC: LABNPT 10:18
PROVIDERS: ATTEND Family Medicine
DX: D69.6 Thrombocytopenia, unspecified (principal)
CPT/HCPCS: 85025

== ENCOUNTER 2018-04-10 13:07 | Outpatient (CLI) | payer MEDICARE, MEDICAID ==
[~2018-04-10] VITALS: Ht 152.4 cm; Wt 40.0 kg
[~2018-04-10 13:07] MED LIST changes: -AMLO5TAB7 PO; +AMLO5TAB9 PO
[2018-04-10] MEDS ORDERED: methylPREDNISolone 125 MG (Solu-MEDROL) VIAL IV PRN (13:45)
[2018-04-10] MEDS ORDERED: IRON DEXTRAN 1,000 MG/NS 250 ML IVPB IV ONE ×2 (13:45)
[2018-04-10] MEDS ORDERED: diphenhydrAMINE 50 MG/ML INJ (BENADRYL) IV PRN (13:45)
[2018-04-10] MEDS ORDERED: ACETAMINOPHEN 325 MG TABLET PO PRN (13:45)
[2018-04-10] MEDS ORDERED: IRON DEXTRAN 25 MG/NS 6.25 ML TOTAL VOLUME IV ONE ×3 (13:45)
--- NOTE | 2018-04-10 14:52 | NUR ---
TOLERATED INFED 25 MG TEST DOSE WITHOUT SIGNS OR SYMPTOMS OF REACTION. DENIES COMPLAINTS. INFED 975 MG STARTED AT 67.5 ML/HR PER PUMP ORDERED BY PHARMACY.
[2018-04-10] MEDS ORDERED: CYAN10006 PO (15:23)
[2018-04-10] MEDS ORDERED: FLUT16SP22 NS (15:23)
[2018-04-10] MEDS ORDERED: FERR325T5 PO (15:23)
[2018-04-10] MEDS ORDERED: CALO41.32 PO (15:23)
[2018-04-10] MEDS ORDERED: MENT71OI TP (15:23)
[2018-04-10] MEDS ORDERED: FERR325T18 PO (15:23)
[2018-04-10] MEDS ORDERED: GUAI237L82 PO (15:23)
[2018-04-10] MEDS ORDERED: ASPI-999 PO (15:23)
[2018-04-10] MEDS ORDERED: TROL177. TP (15:23)
[2018-04-10] MEDS ORDERED: ESCI5TAB PO (15:23)
[2018-04-10] MEDS ORDERED: LACT-35 PO (15:23)
[2018-04-10] MEDS ORDERED: MENT118G TP (15:23)
--- NOTE | 2018-04-10 15:23 | NUR ---
TYLENOL 650 MG GIVEN PO PER C/O RIGHT LEG RESTLESSNESS AND C/O "MY LEG IS JUST BOTHERING ME".
--- NOTE | 2018-04-10 15:24 | NUR ---
UPDATED MED REC WITH PHYSICIAN'S ORDERS FROM [facility]
--- NOTE | 2018-04-10 16:00 | NUR ---
TOLERATING INFED INFUSION WITHOUT PROBLEM. INFUSION RATE INCREASED TO 125 ML/HR PER DEBI TRIPLETT PHARMACIST.
--- NOTE | 2018-04-10 17:20 | NUR ---
INFUSION COMPLETE. DENIES COMPLAINTS. HAS BEEN RESTING QUIETLY IN BED.
[2018-04-10 17:40] VITALS: BP 142/64
--- NOTE | 2018-04-10 17:50 | NUR ---
NO CHANGE IN ASSESSMENT, IV DC'D. DISMISSED PER PERSONAL WC WITH [facility] STAFF X1.
== END 2018-04-10 17:50 ==
LOC: SDC 13:07
PROVIDERS: ATTEND Family Medicine
DX: D50.9 Iron deficiency anemia, unspecified (principal)
CPT/HCPCS: 96365

== ENCOUNTER 2018-06-07 22:00 | Emergency (ER) | payer MEDICARE, MEDICAID ==
[~2018-06-07] VITALS: Ht 152.4 cm; Wt 40.0 kg
[~2018-06-07 22:00] MED LIST changes: +ASPI-999 PO; +CALO41.32 PO; +CYAN10006 PO; +ESCI5TAB PO; +FERR325T18 PO; +FERR325T5 PO; +FLUT16SP22 NS; +GUAI237L82 PO; +LACT-35 PO; +MENT71OI TP; +TROL177. TP
[2018-06-07] MEDS ORDERED: L.E.T. SYRINGE 5 ML MM STA (22:03)
[2018-06-07] MEDS ORDERED: TETANUS,DIPTH,PERTUSS P/F (BOOSTRIX) 0.5 ML VIAL IM ONE (22:15)
--- NOTE | 2018-06-07 23:02 | ED Fall/Injury ---
General Chief Complaint: Trauma-Non Activation Stated Complaint: FALL Nursing Triage Note: SEE TRAUMA NOTE Source: patient Exam Limitations: no limitations History of Present Illness Date Seen by Provider: Jun 07, 2018 Time Seen by Provider: 22:15 Initial Comments Here with [facility].. Head on a bucket when she fell out of bed. No loss consciousness but moderate amount of bleeding. He is on blood thinners. Sent here for further evaluation and laceration evaluation. Patient denies any significant pain or other concerns at this time. Occurred: just prior to arrival (proximally 30 minutes prior to arrival) Severity: mild Injuries/Pain Location: head Context: lost balance Loss of Consciousness: no loss of consciousness Modifying Factors: Improves With Rest Associated Symptoms (Fall): No Abdominal Pain, No Chest Pain, No Confusion, No Headache, No Lightheadedness, No Nausea/Vomiting, No Neck Pain Allergies and Home Medications Allergies Coded Allergies: Penicillins (Unverified Allergy, Unknown, 10/22/15) Home Medications Acetaminophen 500 Mg Tablet, 500-1,000 MG PO TID PRN for PAIN-MILD, (Reported) TAKES 1-2 (500 MG) TABLETS Albuterol Sulfate 2.5 Mg/3 Ml Vial.neb, 2.5 MG IH Q6H PRN for SHORTNESS OF BREATH, (Reported) Amlodipine Besylate 5 Mg Tablet, 5 MG PO BID, (Reported) HOLD AND NOTIFY PCP IF SBP LESS THAN 100 AND/OR DBP LESS THAN 60 AND/OR PULSE LESS THAN 60 Aspirin 81 Mg Tab.chew, 81 MG PO DAILY, (Reported) Calcium Carbonate 600 Mg Tablet, 600 MG PO HS, (Reported) Caloric Supplement 7.5 Kcal/1 Ml Liquid, 1 PACKET PO DAILY, (Reported) Cetirizine HCl 10 Mg Tablet, 10 MG PO DAILY, (Reported) Clopidogrel Bisulfate 75 Mg Tablet, 75 MG PO DAILY, (Reported) Cyanocobalamin (Vitamin B-12) 1,000 Mcg Tablet, 1,000 MCG PO DAILY, (Reported) Cyproheptadine HCl 4 Mg Tablet, 2 MG PO DAILY, (Reported) Escitalopram Oxalate 5 Mg Tablet, 5 MG PO DAILY, (Reported) Famotidine 20 Mg Tablet, 20 MG PO HS, (Reported) Ferrous Sulfate 325 Mg Tablet.dr, 325 MG PO DAILY, (Reported) 14 DAY THERAPY START DATE 04-03-18 Ferrous Sulfate 325 Mg Tablet, 325 MG PO TuFr@1200, (Reported) Fluticasone Propionate 16 Gm [place].susp, 1 SPRAY NS BID PRN for ALLERGIES, ( Reported) Fluticasone/Salmeterol 1 Each Blst.w.dev, 1 PUFF IH BID, (Reported) Guaifenesin 600 Mg Tab.er.12h, 600 MG PO DAILY PRN for CONGESTION, (Reported) Guaifenesin/Dextromethorphan 237 Ml Liquid, 5 ML PO Q4H PRN for COUGH, (Reported ) Lactose-Reduced Food 237 Ml Liquid, 237 ML PO TID, (Reported) Loperamide HCl 2 Mg Tablet, 2 MG PO QID PRN for DIARRHEA, (Reported) Mag Hydrox/Al Hydrox/Simeth 30 Ml Oral.susp, 30 ML PO Q4H PRN for INDIGESTION, ( Reported) Menthol 118 Ml Gel..ml., TP TID PRN for JOINT/MUSCLE PAIN, (Reported) Menthol/Lanolin/Calamine/Znox 71 Gm Oint, TP UD PRN for BUTTOCK, (Reported) Pentoxifylline 400 Mg Tablet.er, 400 MG PO TID, (Reported) Tiotropium [place] 1 Inh Aerp, 1 CAP IH DAILY, (Reported) Trolamine Salicylate 177.4 Ml Lotion, TP HS, (Reported) Patient Home Medication List Home Medication List Reviewed: Yes Review of Systems Review of Systems Constitutional: see HPI; No chills, No fever Eyes: No Symptoms Reported Ears, Nose, Mouth, Throat: no symptoms reported Respiratory: no symptoms reported Cardiovascular: no symptoms reported Gastrointestinal: no symptoms reported Musculoskeletal: no symptoms reported Skin: see HPI, change in color, lesions (1.5 cm laceration to the forehead) Past Usnzniy-Mjvpld-Ywatlq Hx Past Med/Social Hx: Reviewed Nursing Past Med/Soc Hx Patient Social History Alcohol Use: Denies Use Recreational Drug Use: No Smoking Status: Former Smoker Type Used: Cigarettes Former Smoker, Quit: Feb 26, 2011 Recent Foreign Travel: No Contact w/Someone Who Travel: No Recent Infectious Disease Expo: No Recent Hopitalizations: No Immunizations Up To Date Tetanus Booster (TDap): Unknown Date of Pneumonia Vaccine: Dec 27, 2014 Date of Influenza Vaccine: Nov 26, 2017 Seasonal Allergies Seasonal Allergies: Yes Past Medical History Surgeries: No Vasectomy Respiratory: Yes Pneumonia, Chronic Bronchitis, COPD, Emphysema Currently Using CPAP: No Currently Using BIPAP: No Cardiac: Yes Peripheral Vascular Neurological: Yes Dementia Reproductive Disorders: No Genitourinary: Yes Bladder Infection, Renal Failure, UTI-Chronic Gastrointestinal: No Chronic Constipation Musculoskeletal: No Arthritis Endocrine: Yes (THYROID NODULE) Loss of Vision: Denies Hearing Impairment: Denies Cancer: No Psychosocial: Yes Depression Integumentary: No Blood Disorders: Yes (IRON DEFICIENCY ANEMIA) Family Medical History Reviewed Nursing Family Hx ABDOMINAL CANCER G8 BROTHER FH: emphysema 19 MOTHER Peripheral arterial disease G8 SISTER Thyroid disease G8 SISTER Hypertension Physical Exam Vital Signs Vital Signs - First Documented 06/07/18 22:00 Temp 98.3 Pulse 80 Resp 18 B/P (MAP) 154/76 (102) Pulse Ox 95 O2 Delivery Nasal Cannula O2 Flow Rate 3.00 Capillary Refill : Less Than 3 Seconds Height, Weight, BMI Height: 5'0.00" Weight: 88lbs. 4.0oz. 40.169104ve; 19.5 BMI Method:Stated General Appearance: WD/WN, no apparent distress HEENT: PERRL/EOMI, pharynx normal Neck: non-tender, full range of motion, supple, normal inspection Cardiovascular: regular rate, rhythm, no murmur Respiratory: lungs clear, normal breath sounds Gastrointestinal: non tender, soft Back: normal inspection, no CVA tenderness, no vertebral tenderness Extremities: non-tender, normal inspection Neurologic/Psychiatric: alert, oriented x 3 Skin: warm/dry, other (1.5 cm laceration to the left upper forehead with bleeding controlled.) Chelsea Coma Score Best Eye Response: (4) Open Spontaneously Best Verbal Response: (5) Oriented Best Motor Response: (6) Obeys Commands Procedures/Interventions Wound Location: Face Other Wound Location Left upper forehead Wound Length (cm): 1.5 Wound's Depth, Shape: superficial Wound Explored: contaminated Betadine Prep?: Yes Anesthesia: Lidocaine w/ Epi (let) Wound Debrided: minimal Other Closure Supply: Wound Adhesive Progress Cleaned with ChloraPrep and water. Closed with skin glue. Tolerated procedure well with no complications. Progress/Results/Core Measures Results/Orders My Orders Orders - BLAYNE PEREZ MD Ct Head/Cervical Spine Wo (06/07/18 22:02) Let Solution (Let Solution) (06/07/18 22:03) Dipht,Pertuss(Acell),Tet Adult (Boostrix (06/07/18 22:15) Vital Signs/I&O 06/07/18 22:00 Temp 98.3 Pulse 80 Resp 18 B/P (MAP) 154/76 (102) Pulse Ox 95 O2 Delivery Nasal Cannula O2 Flow Rate 3.00 Blood Pressure Mean: 102 Progress Progress Note : Progress Note Seen and evaluated. CT head and neck ordered. Wound cleaned. Wound covered with LET. Wound closed with skin glue. Tolerated procedure well without complications. CT head and neck negative. [facility] back [facility] with return precautions. Patient verbalize understanding instructions and agreement with plan. Diagnostic Imaging Diagonstic Imaging: CT Plain Films/CT/US/NM/MRI: c-spine, head Comments No acute findings on the head or C-spine per radiology reading. Reviewed: Reviewed Night [facility] Study Departure Impression Primary Impression: Facial laceration Qualified Codes: S01.81XA - Laceration without foreign body of other part of head, initial encounter Additional Impression: Head injury Qualified Codes: S09.90XA - Unspecified injury of head, initial encounter Disposition: HOME, SELF-CARE Condition: Improved Departure-Patient Inst. Decision time for Depature: 23:04 Referrals: GUNNER GONZALEZ MD (PCP/Family) Primary Care Physician Patient Instructions: Laceration Repair With Glue (DC), Minor Head Injury (DC) Add. Discharge Instructions: All discharge instructions reviewed with patient and/or family. Voiced understanding. Continue previously prescribed medicines. Skin glue is in place. Do not remove it. Do not cover with lotion, ointment or cream as this will prematurely remove the glue. You may shower but do not soak wound. Skin glue will follow-up in the next 5-7 days. Return for worse pain, fever, swelling, foul-smelling drainage, red streaks or other concerns as needed. Follow up with your doctor next week for recheck as needed. Copy Copies To 1: GUNNER GONZALEZ MD, TIMOTHY D MD Jun 07, 2018 23:02
[2018-06-07 23:14] VITALS: BP 132/81
--- NOTE | 2018-06-07 23:21 | NUR ---
TRANSFER TO [facility] WITH ALL BELONGINGS. UNABLE TO SEND TRANSPORT AND STATES FAMILY SICK AND CANNOT TRANSFER PT BY POV.
--- NOTE | 2018-06-08 06:37 | Diagnostic Imaging Report ---
PROCEDURE: CT head and CT cervical spine without contrast. TECHNIQUE: Multiple contiguous axial images were obtained through the brain and cervical spine without the use of intravenous contrast. Sagittal and coronal reformations through the cervical spine were then performed. Auto Exposure Controls were utilized during the CT exam to meet ALARA standards for radiation dose reduction. INDICATION: Fall. Head injury. COMPARISON: None. FINDINGS: CT head: No intracranial hemorrhage, mass effect, hydrocephalus or extra-axial fluid collections. No CT evidence for territorial infarction. Advanced generalized cerebral and cerebellar parenchymal volume loss. Advanced leukoaraiosis. Osseous structures are intact. The paranasal sinuses and mastoids clear. CT cervical spine: Grade 1 anterolisthesis of C3 on C4 and C4 on C5. Alignment is otherwise unremarkable. Vertebral body heights preserved. No fractures. Moderate diffuse degenerative endplate changes. No high-grade spinal canal narrowing is evident on this noncontrast exam. Moderate atherosclerotic calcifications. Advanced centrilobular emphysema at the lung apices. IMPRESSION: No acute intracranial or cervical spine CT findings. Dictated by: Dictated on workstation # [id number]
== END 2018-06-07 23:21 | disposition home or self-care (01) ==
LOC: EDUNIT# 22:00 → ER 22:02
DX: S09.90XA Unspecified injury of head, initial encounter (principal); S01.81XA Laceration without foreign body of other part of head, initial encounter; J43.9 Emphysema, unspecified; I73.9 Peripheral vascular disease, unspecified; F03.90 Unspecified dementia, unspecified severity, without behavioral disturbance, psychotic disturbance, mood disturbance, and anxiety; R40.2142 Coma scale, eyes open, spontaneous, at arrival to emergency department; R40.2252 Coma scale, best verbal response, oriented, at arrival to emergency department; R40.2362 Coma scale, best motor response, obeys commands, at arrival to emergency department; F32.9 Major depressive disorder, single episode, unspecified; D50.9 Iron deficiency anemia, unspecified; Z87.440 Personal history of urinary (tract) infections; Z23 Encounter for immunization; Z88.0 Allergy status to penicillin; Z79.82 Long term (current) use of aspirin; Z79.02 Long term (current) use of antithrombotics/antiplatelets; Z79.51 Long term (current) use of inhaled steroids; Z87.891 Personal history of nicotine dependence; Z98.52 Vasectomy status; Z87.01 Personal history of pneumonia (recurrent); W06.XXXA Fall from bed, initial encounter; Y92.129 Unspecified place in nursing home as the place of occurrence of the external cause
CPT/HCPCS: 70450; 72125; 90715